=== PATIENT | male | born 1950 | race Caucasian/White ===

== ENCOUNTER 2016-07-19 20:27 | Inpatient (IN) | payer OTHER ==
[2016-07-19] MEDS ORDERED: CEFAZOLIN 1 GM in DEXTROSE 5%-WATER - 50 ML IVPB ONE (20:48)
[2016-07-19] MEDS ORDERED: IBUPROFEN 600 MG TABLET (FP) PO ONE ×2 (20:48→21:05)
--- NOTE | 2016-07-19 20:53 | PDOC ---
History of Present Illness - General History Source: Patient, EMS, Senior Care Records, Old Records Exam Limitations: Clinical Condition <Lobo Griffin - Last Filed: 07/19/16 21:55> - General History Source: Patient, EMS, Senior Care Records Exam Limitations: No Limitations - History of Present Illness Initial Comments: 07/19/16 20:56 The patient is a 66 year old male with significant past medical history of hyperlipidemia and bipolar disorder who presents to the ED BIBA from [facility] with s/p fall prior to arrival. Patient reports he woke up a few days ago with left leg and left knee pain. He states he normally has pain in the shoulders and knees, but this time his pain in his left knee has worsened. He reports he is unable to ambulate secondary to the pain. Patient reports he felt off balance and fell prior to arrival. He denies LOC or head trauma. According to the living facility, patient has a history of multiple falls recently and was sent to [facility] where he was treated and discharged back to [facility]. The patient denies fever, chills, cough, SOB, chest pain, and palpitations. The patient denies abdominal pain, nausea, vomiting, and diarrhea. Allergies: NKDA Social History: No alcohol, tobacco, or drug use reported. Past Surgical History: inguinal hernia repair (August 2015) PCP: Dr. Daiana Saleem <Shauna Bell - Last Filed: 07/19/16 23:08> - General Chief Complaint: Injury Stated Complaint: INJURY Time Seen by Provider: 07/19/16 20:41 Past History - Past Medical History Hypercholesterolemia: Yes - Surgical History Appendectomy: Yes - Immunization History Immunization Up to Date: Yes - Psycho/Social/Smoking Cessation Hx Suicidal Ideation: No Smoking Status: Yes Smoking History: Never smoked Number of Cigarettes Smoked Daily: 10 Information on smoking cessation initiated: No <Lobo Griffin - Last Filed: 07/19/16 21:55> <Shauna Bell - Last Filed: 07/19/16 23:08> - Past Medical History Allergies/Adverse Reactions: Allergies Allergy/AdvReac Type Severity Reaction Status Date / Time No Known Allergies Allergy Verified 07/20/11 16:06 Home Medications: Ambulatory Orders Aspirin [ASA -] 81 mg PO DAILY 07/19/16 Atorvastatin Ca [Lipitor] 40 mg PO HS 07/19/16 Cyclobenzaprine HCl 5 mg PO BID 07/19/16 Diphenhydramine [Benadryl -] 50 mg PO DAILY 07/19/16 Divalproex Sodium [Depakote] 750 mg PO HS 07/19/16 Fluphenazine HCl 1 mg PO BID 07/19/16 Fluphenazine HCl Injection [Prolixin Injection -] 25 mg IM ASDIR 07/19/16 Sertraline HCl [Zoloft -] 100 mg PO DAILY 07/19/16 Review of Systems - Review of Systems Able to Perform ROS?: Yes Comments:: 07/19/16 20:57 +left leg pain, left knee pain Absent: fever, chills, cough, SOB, chest pain, abdominal pain, nausea, vomiting , diarrhea, LOC, headache, dizziness <Shauna Bell - Last Filed: 07/19/16 23:08> *Physical Exam - Vital Signs Last Vital Signs Temp Pulse Resp BP Pulse Ox 98.7 F 97 H 20 128/62 96 07/19/16 20:34 07/19/16 20:34 07/19/16 20:34 07/19/16 20:34 07/19/16 20:34 - Physical Exam General Appearance: Yes: Nourished, Appropriately Dressed. No: Apparent Distress HEENT: positive: EOMI, Normal ENT Inspection Neck: positive: Supple. negative: Tender Respiratory/Chest: positive: Lungs Clear, Normal Breath Sounds. negative: Chest Tender, Respiratory Distress Cardiovascular: positive: Regular Rhythm, Regular Rate Gastrointestinal/Abdominal: positive: Normal Bowel Sounds, Soft. negative: Tender Musculoskeletal: positive: Normal Inspection Extremity: positive: Normal Capillary Refill, Normal Range of Motion, Tender ( LT KNEE AT PALPATION) Integumentary: positive: Normal Color, Warm (ON LT KNEE. ANT ERYTHEMA. NO EDEMA) Neurologic: positive: Alert, Normal Mood/Affect, Normal Response, Motor Strength 5/5 <Lobo Griffin - Last Filed: 07/19/16 21:55> - Vital Signs Last Vital Signs Temp Pulse Resp BP Pulse Ox 98.7 F 97 H 20 128/62 96 07/19/16 20:34 07/19/16 20:34 07/19/16 20:34 07/19/16 20:34 07/19/16 20:34 <Shauna Bell - Last Filed: 07/19/16 23:08> Heart Score/ECG Review - ECG Impressions Comment:: 07/19/16 23:08 NSR @74bpm Septal infarct, age undetermined Abnormal ECG <Shauna Bell - Last Filed: 07/19/16 23:08> ED Treatment Course - LABORATORY CBC & Chemistry Diagram: 07/19/16 21:00 07/19/16 21:00 - RADIOLOGY Radiology Studies Ordered: Category Date Time Status CHEST PA & LAT [RAD] Stat Radiology 07/19/16 20:48 Ordered KNEE 2 POS-LEFT [RAD] Stat Radiology 07/19/16 20:48 Ordered <Lobo Griffin - Last Filed: 07/19/16 21:55> - LABORATORY CBC & Chemistry Diagram: 07/19/16 21:00 07/19/16 21:00 <Shauna Bell - Last Filed: 07/19/16 23:08> Progress Note - Progress Note Progress Note: MULT VISITS TO ER'S FOR FALLS NOW W KNEE PAIN AND ERYTHEMA (GOUT?) WILL ADMIT WILL START ABX FOR CELLULITIS OF KNEE <Lobo Griffin - Last Filed: 07/19/16 21:55> *DC/Admit/Observation/Transfer - Discharge Dispostion Admit: Yes <Lobo Griffin - Last Filed: 07/19/16 21:55> - Attestations Scribe Attestion: 07/19/16 20:58 Documentation prepared by Shauna Bell, acting as associate medical director for Lobo Griffin MD <Shauna Bell - Last Filed: 07/19/16 23:08> Diagnosis at time of Disposition: Cellulitis Qualifiers: Site of cellulitis: extremity Site of cellulitis of extremity: lower extremity Laterality: left Qualified Code(s): L03.116 - Cellulitis of left lower limb - Discharge Dispostion Condition at time of disposition: Stable - Referrals
[2016-07-19] MEDS ORDERED: CEFAZOLIN (PRE-DOCKED) 50 ML IVPB ONE (21:05)
[2016-07-19 21:18] LABS: BASOPHIL 0.3 % (0-2.0); MCH 31.3 pg (25.7-33.7); MCHC 34.1 g/dl (32.0-35.9); MEAN CELL VOLUME 91.7 fl (80-96); MEAN PLT VOLUME 8.9 fl (7.5-11.1); NEUTROPHILS 61.6 % (42.8-82.8); PLATELET COUNT 130 K/MM3 (134-434); RDW 14.6 % (11.9-15.9)
[2016-07-19 21:41] LABS: ANION GAP 9 (8-16); CALCIUM 8.8 mg/dL (8.5-10.1); CO2 26 mmol/L (21-32); CREATININE 0.9 mg/dL (0.7-1.3); GLUCOSE,RANDOM 97 mg/dL (74-106)
--- NOTE | 2016-07-19 23:07 | HP ---
Admitting History and Physical - Primary Care Physician PCP: Anju Sheffield - Admission History of Present Illness: 66 year old male with significant past medical history of hyperlipidemia and bipolar disorder who presents to the ED BIBA from [facility] with s/p fall prior to arrival. Patient reports he woke up a few days ago with left leg and left knee pain. He states he normally has pain in the shoulders and knees, but this time his pain in his left knee has worsened. He reports he is unable to ambulate secondary to the pain. Patient reports he felt off balance and fell prior to arrival. He denies LOC or head trauma. According to the living facility , patient has a history of multiple falls recently and was sent to [facility] where he was treated and discharged back to [facility]. - Past Medical History Cardiovascular: Yes: Hyperlipdemia - Smoking History Smoking history: Never smoked Aproximately how many cigarettes per day: 10 Home Medications - Allergies Allergies/Adverse Reactions: Allergies Allergy/AdvReac Type Severity Reaction Status Date / Time No Known Allergies Allergy Verified 07/20/11 16:06 - Home Medications Home Medications: Ambulatory Orders Aspirin [ASA -] 81 mg PO DAILY 07/19/16 Atorvastatin Ca [Lipitor] 40 mg PO HS 07/19/16 Cyclobenzaprine HCl 5 mg PO BID 07/19/16 Diphenhydramine [Benadryl -] 50 mg PO DAILY 07/19/16 Divalproex Sodium [Depakote] 750 mg PO HS 07/19/16 Fluphenazine HCl 1 mg PO BID 07/19/16 Fluphenazine HCl Injection [Prolixin Injection -] 25 mg IM ASDIR 07/19/16 Sertraline HCl [Zoloft -] 100 mg PO DAILY 07/19/16 Physical Examination Vital Signs: Vital Signs Temperature 98.7 F 07/19/16 20:34 Pulse Rate 97 H 07/19/16 20:34 Respiratory Rate 20 07/19/16 20:34 Blood Pressure 128/62 07/19/16 20:34 O2 Sat by Pulse Oximetry (%) 96 07/19/16 20:34 Constitutional: Yes: No Distress HENT: Yes: Atraumatic Neck: Yes: Supple Cardiovascular: Yes: Regular Rate and Rhythm Respiratory: Yes: CTA Bilaterally Gastrointestinal: Yes: Normal Bowel Sounds Extremities: Yes: WNL Neurological: Yes: Alert, Oriented Problem List - Problems (1) Cellulitis Code(s): L03.90 - CELLULITIS, UNSPECIFIED Qualifiers: Site of cellulitis: extremity Site of cellulitis of extremity: lower extremity Laterality: left Qualified Code(s): L03.116 - Cellulitis of left lower limb (2) Frequent falls Code(s): R29.6 - REPEATED FALLS Assessment/Plan Laboratory Tests 07/19/16 07/19/16 21:00 21:00 WBC 7.0 RBC 3.66 L Hgb 11.5 L Hct 33.6 L MCV 91.7 MCHC 34.1 RDW 14.6 Plt Count 130 L MPV 8.9 Neutrophils % 61.6 Lymphocytes % 19.3 Monocytes % 15.8 H D Eosinophils % 3.0 Basophils % 0.3 Sodium 143 Potassium 4.0 Chloride 108 H Carbon Dioxide 26 Anion Gap 9 BUN 12 D Creatinine 0.9 Random Glucose 97 D Calcium 8.8 1.FREQUENT FALLS WILL GET PT EVAL NEURO EVAL 2.CHRONIC PAIN PRN PAIN MEDS PT ON FLEXERIL AND BENADRYL COULD BE THE REASON FOR FREQUENT FALLS....WILL HOLD 3.CELLULITIS LEFT KNEE ON IV ABX ID CONSULT
[2016-07-20 03:50] VITALS: BMI 25.3
[2016-07-20] MEDS ORDERED: CEFTRIAXONE 1 GM in DEXTROSE 5%-WATER - 100 ML IVPB SCH (10:00)
[2016-07-20] MEDS ORDERED: cefTRIAXone 1 GM/50 ML BAG (PRE-DOCKED) IVPB SCH (10:00)
[2016-07-20] MEDS: SERTRALINE HCL 50 MG TABLET (FP) PO SCH ×2 (10:04→10:14)
[2016-07-20] MEDS: ASPIRIN 81 MG CHEWABLE TABLETS PO SCH (10:04)
--- NOTE | 2016-07-20 11:03 | CONSULT ---
Consult Consult Specialty:: Neurology Reason for Consultation:: Falls - History of Present Illness History of Present Illness: 66 year old man with history of bipolar disorder, hyperlipidemia, presented to ED sent from [facility] due to comlpaints of falls. As per the patient, for the last few days has noted worsening left knee pain. He states that he has had difficultly walking due to the pain. When questioned regarding his recent falls, the patient states he believes the falls are secondary to pain and difficultly standing. Records states he has a history of falls in the past however patient does not give more information about this. He denies any back pain. CT head showed no acute findings. Exam significant for erythema/ swelling and limited range of motion of the left knee. - Past Medical History Cardio/Vascular: Yes: Hyperlipdemia - Alcohol/Substance Use Hx Alcohol Use: No - Smoking History Smoking history: Never smoked Aproximately how many cigarettes per day: 10 Home Medications - Allergies Allergies/Adverse Reactions: Allergies Allergy/AdvReac Type Severity Reaction Status Date / Time No Known Allergies Allergy Verified 07/20/11 16:06 - Home Medications Home Medications: Ambulatory Orders Aspirin [ASA -] 81 mg PO DAILY 07/19/16 Atorvastatin Ca [Lipitor] 40 mg PO HS 07/19/16 Cyclobenzaprine HCl 5 mg PO BID 07/19/16 Diphenhydramine [Benadryl -] 50 mg PO DAILY 07/19/16 Divalproex Sodium [Depakote] 750 mg PO HS 07/19/16 Fluphenazine HCl 1 mg PO BID 07/19/16 Fluphenazine HCl Injection [Prolixin Injection -] 25 mg IM ASDIR 07/19/16 Sertraline HCl [Zoloft -] 100 mg PO DAILY 07/19/16 Review of Systems - Review of Systems Musculoskeletal: reports: Decreased ROM, Joint Pain (left knee pain) Physical Exam Vital Signs: Vital Signs Temperature 97.6 F 07/20/16 10:00 Pulse Rate 68 07/20/16 10:00 Respiratory Rate 20 07/20/16 10:00 Blood Pressure 126/80 07/20/16 10:00 O2 Sat by Pulse Oximetry (%) 95 07/20/16 09:00 Constitutional: Yes: Calm Eyes: Yes: Conjunctiva Clear, EOM Intact HENT: Yes: Atraumatic, Normocephalic Cardiovascular: Yes: S1, S2 Extremities: Yes: Erythema, Other (left knee erythema and swelling, minimal range of motion left knee) Neurological: Yes: Alert, Oriented (knows name, year, thinks month is july), Cran Nerves II-XII Intact, Other (5/5 strength in bilateral upper ext, right lower ext no antigravity movement seen in left leg secondary to pain in left knee) Assessment/Plan 66 year old man with history of bipolar disorder, hyperlipidemia, presented to ED sent from [facility] due to comlpaints of falls. As per the patient, for the last few days has noted worsening left knee pain. He states that he has had difficultly walking due to the pain. When questioned regarding his recent falls, the patient states he believes the falls are secondary to pain and difficultly standing. Records states he has a history of falls in the past however patient does not give more information about this. He denies any back pain. Fall- likely secondary to left knee cellulitis, polypharmacy could contribute. Unclear cause of prior falls as patient not providing history on this CT head showed no acute findings Exam significant for erythema/swelling and minimal range of motion of the left knee Will defer on imaging of L/S spine as patient denying back pain Recommend physical therapy Supportive care Thank you for the consult
[2016-07-20 12:19] LABS: TROPONIN I < 0.02 ng/ml (0.00-0.05)
--- NOTE | 2016-07-20 13:07 | CONSULT ---
Consult Consult Specialty:: infectious diseases Referred by:: Reason for Consultation:: cellulitis of the left knee joint - History of Present Illness Chief Complaint: pain and swelling of the left knee History of Present Illness: 66 year old male with significant past medical history of hyperlipidemia and bipolar disorder who presents to the ED BIBA from [facility] with s/p fall prior to arrival. Patient reports he woke up a few days ago with left leg and left knee pain. He states he normally has pain in the shoulders and knees, but this time his pain in his left knee has worsened. He reports he is unable to ambulate secondary to the pain. Patient reports he felt off balance and fell prior to arrival. He denies LOC or head trauma. According to the living facility , patient has a history of multiple falls recently and was sent to [facility] where he was treated and discharged back to [facility]. The above history taken from the charts as patient is not able to give proper history he mentions that he had fevers and chills but he is not very sure of that.now he says he has pain the left knee joint at the mid knee joint He is very hungry and wants to eat and does not want to talk much at this time - History Source History Provided By: Patient, Medical Record Limitations to Obtaining History: Poor Historian - Past Medical History Cardio/Vascular: Yes: Hyperlipdemia - Alcohol/Substance Use Hx Alcohol Use: No - Smoking History Smoking history: Never smoked Aproximately how many cigarettes per day: 10 Home Medications - Allergies Allergies/Adverse Reactions: Allergies Allergy/AdvReac Type Severity Reaction Status Date / Time No Known Allergies Allergy Verified 07/20/11 16:06 - Home Medications Home Medications: Ambulatory Orders Aspirin [ASA -] 81 mg PO DAILY 07/19/16 Atorvastatin Ca [Lipitor] 40 mg PO HS 07/19/16 Cyclobenzaprine HCl 5 mg PO BID 07/19/16 Diphenhydramine [Benadryl -] 50 mg PO DAILY 07/19/16 Divalproex Sodium [Depakote] 750 mg PO HS 07/19/16 Fluphenazine HCl 1 mg PO BID 07/19/16 Fluphenazine HCl Injection [Prolixin Injection -] 25 mg IM ASDIR 07/19/16 Sertraline HCl [Zoloft -] 100 mg PO DAILY 07/19/16 Review of Systems - Review of Systems Constitutional: reports: Fever, Other Eyes: reports: No Symptoms HENT: reports: No Symptoms Neck: reports: No Symptoms Cardiovascular: reports: No Symptoms Respiratory: reports: No Symptoms Gastrointestinal: reports: No Symptoms Genitourinary: reports: No Symptoms Breasts: reports: No Symptoms Reported Musculoskeletal: reports: Joint Pain (left knee joint), Joint Swelling Neurological: reports: Confusion Endocrine: reports: No Symptoms Hematology/Lymphatic: reports: No Symptoms Psychiatric: reports: No Symptoms Physical Exam Vital Signs: Vital Signs Temperature 97.6 F 07/20/16 10:00 Pulse Rate 68 07/20/16 10:00 Respiratory Rate 20 07/20/16 10:00 Blood Pressure 126/80 07/20/16 10:00 O2 Sat by Pulse Oximetry (%) 95 07/20/16 09:00 Constitutional: Yes: Well Nourished, Mild Distress Eyes: Yes: Conjunctiva Clear HENT: Yes: Atraumatic Neck: Yes: Supple, Trachea Midline Cardiovascular: Yes: Regular Rate and Rhythm Respiratory: Yes: Regular, CTA Bilaterally Gastrointestinal: Yes: Normal Bowel Sounds, Soft Musculoskeletal: Yes: Joint Swelling, Other Extremities: Yes: Erythema, Other (swelling left knee joint) Neurological: Yes: Alert, Oriented Psychiatric: Yes: Alert Imaging - Results Chest X-ray: Report Reviewed, Image Reviewed X-ray: Report Reviewed, Image Reviewed Assessment/Plan Assessment/Plan 66 year old man with history of bipolar disorder, hyperlipidemia, presented to ED sent from [facility] due to comlpaints of falls. As per the patient, for the last few days has noted worsening left knee pain. He states that he has had difficultly walking due to the pain. movement of the knee joint painful cellulitis of the left knee joint hld bipolar disorder fall plan will start zosyn also oral clinda rest of the joint monitor swelling rest as per the team
[2016-07-20] MEDS: PIPERACILLIN/TAZOB 3.375 GM 50 ML IVPB SCH ×2 (13:55→18:02)
[2016-07-20] MEDS: CLINDAMYCIN HCL 150 MG CAPSULE (FP) PO SCH (18:01)
--- NOTE | 2016-07-20 19:24 | PN ---
Progress Note, Physician - Current Medication List Current Medications: Active Medications Aspirin (Asa -) 81 mg PO DAILY [facility] Last Admin: 07/20/16 10:04 Dose: 81 mg Atorvastatin Calcium (Lipitor -) 40 mg PO HS [facility] Clindamycin HCl (Cleocin -) 300 mg PO Q6HPO [facility] Last Admin: 07/20/16 18:01 Dose: 300 mg Divalproex Sodium (Depakote -) 750 mg PO HS [facility] Piperacillin Sod/Tazobactam Sod (Zosyn 3.375gm Ivpb (Pre-Docked)) 50 mls @ 100 mls/hr IVPB Q8H-IV [facility] PRN Reason: Protocol Last Admin: 07/20/16 18:02 Dose: 100 mls/hr Sertraline HCl (Zoloft -) 100 mg PO DAILY [facility] Last Admin: 07/20/16 10:14 Dose: 100 mg - Objective Vital Signs: Vital Signs Temperature 97.7 F 07/20/16 18:08 Pulse Rate 85 07/20/16 18:08 Respiratory Rate 20 07/20/16 18:08 Blood Pressure 128/81 07/20/16 18:08 O2 Sat by Pulse Oximetry (%) 95 07/20/16 09:00 Constitutional: Yes: No Distress HENT: Yes: Atraumatic Neck: Yes: Supple Cardiovascular: Yes: Regular Rate and Rhythm Respiratory: Yes: CTA Bilaterally Gastrointestinal: Yes: Normal Bowel Sounds Extremities: Yes: Other (LEFT KNEE CELLULITIS) Neurological: Yes: Alert, Oriented Problem List - Problems (1) Cellulitis Code(s): L03.90 - CELLULITIS, UNSPECIFIED Qualifiers: Site of cellulitis: extremity Site of cellulitis of extremity: lower extremity Laterality: left Qualified Code(s): L03.116 - Cellulitis of left lower limb (2) Frequent falls Code(s): R29.6 - REPEATED FALLS Assessment/Plan Laboratory Tests 1.FREQUENT FALLS WILL GET PT EVAL NEURO EVAL 2.CHRONIC PAIN PRN PAIN MEDS PT ON FLEXERIL AND BENADRYL COULD BE THE REASON FOR FREQUENT FALLS....WILL HOLD 3.CELLULITIS LEFT KNEE ON IV ABX PT EVAL
--- NOTE | 2016-07-20 21:30 | EKG ---
Test Reason : Blood Pressure : / mmHG Vent. Rate : 074 BPM Atrial Rate : 074 BPM P-R Int : 162 ms QRS Dur : 086 ms QT Int : 366 ms P-R-T Axes : 030 013 022 degrees QTc Int : 406 ms NORMAL SINUS RHYTHM CANNOT RULE OUT SEPTAL INFARCT (CITED ON OR BEFORE 20-JUL-2011) ABNORMAL ECG WHEN COMPARED WITH ECG OF 20-JUL-2011 16:26, VENT. RATE HAS DECREASED Confirmed by RAMILA ROBISON, CHRISTINE ([id number]) on 07/20/2016 9:29:53 PM Referred By: Confirmed By:CHRISTINE MCGRATH MD
[2016-07-20] MEDS: ATORVASTATIN CA 40 MG TABLET (FP) PO SCH (22:43)
[2016-07-20] MEDS: DIVALPROEX SODIUM 250 MG TABLET E.C. (FP) PO SCH (23:24)
[2016-07-21] MEDS: CLINDAMYCIN HCL 150 MG CAPSULE (FP) PO SCH ×5 (00:45→23:34)
[2016-07-21] MEDS: PIPERACILLIN/TAZOB 3.375 GM 50 ML IVPB SCH ×3 (01:29→18:00)
[2016-07-21] MEDS: SERTRALINE HCL 50 MG TABLET (FP) PO SCH (11:36)
[2016-07-21] MEDS: ASPIRIN 81 MG CHEWABLE TABLETS PO SCH (11:36)
--- NOTE | 2016-07-21 14:43 | PN ---
Progress Note, Physician History of Present Illness: patient looks better knee less red and swollen minimal pain movement of knee slightly better - Current Medication List Current Medications: Active Medications Aspirin (Asa -) 81 mg PO DAILY [facility] Last Admin: 07/21/16 11:36 Dose: 81 mg Atorvastatin Calcium (Lipitor -) 40 mg PO HS [facility] Last Admin: 07/20/16 22:43 Dose: 40 mg Clindamycin HCl (Cleocin -) 300 mg PO Q6HPO [facility] Last Admin: 07/21/16 11:36 Dose: 300 mg Divalproex Sodium (Depakote -) 750 mg PO HS [facility] Last Admin: 07/20/16 23:24 Dose: 750 mg Piperacillin Sod/Tazobactam Sod (Zosyn 3.375gm Ivpb (Pre-Docked)) 50 mls @ 100 mls/hr IVPB Q8H-IV [facility] PRN Reason: Protocol Last Admin: 07/21/16 11:36 Dose: 100 mls/hr Sertraline HCl (Zoloft -) 100 mg PO DAILY [facility] Last Admin: 07/21/16 11:36 Dose: 100 mg - Objective Vital Signs: Vital Signs Temperature 97.5 F L 07/21/16 14:14 Pulse Rate 92 H 07/21/16 14:14 Respiratory Rate 20 07/21/16 14:14 Blood Pressure 138/88 07/21/16 14:14 O2 Sat by Pulse Oximetry (%) 96 07/20/16 21:00 Constitutional: Yes: No Distress, Calm Cardiovascular: Yes: Regular Rate and Rhythm Respiratory: Yes: Regular, CTA Bilaterally Gastrointestinal: Yes: Normal Bowel Sounds, Soft Musculoskeletal: Yes: Other Extremities: Yes: Erythema (less), Other Integumentary: Yes: Erythema (improving) Neurological: Yes: Alert Psychiatric: Yes: Alert Assessment/Plan Assessment/Plan cellulitis of the left knee joint hld bipolar disorder fall plan continue current abx knee improving
--- NOTE | 2016-07-21 19:49 | PN ---
Progress Note, Physician - Current Medication List Current Medications: Active Medications Aspirin (Asa -) 81 mg PO DAILY [facility] Last Admin: 07/21/16 11:36 Dose: 81 mg Atorvastatin Calcium (Lipitor -) 40 mg PO HS [facility] Last Admin: 07/20/16 22:43 Dose: 40 mg Clindamycin HCl (Cleocin -) 300 mg PO Q6HPO [facility] Last Admin: 07/21/16 18:00 Dose: 300 mg Divalproex Sodium (Depakote -) 750 mg PO HS [facility] Last Admin: 07/20/16 23:24 Dose: 750 mg Piperacillin Sod/Tazobactam Sod (Zosyn 3.375gm Ivpb (Pre-Docked)) 50 mls @ 100 mls/hr IVPB Q8H-IV [facility] PRN Reason: Protocol Last Admin: 07/21/16 18:00 Dose: 100 mls/hr Sertraline HCl (Zoloft -) 100 mg PO DAILY [facility] Last Admin: 07/21/16 11:36 Dose: 100 mg - Objective Vital Signs: Vital Signs Temperature 98.5 F 07/21/16 18:00 Pulse Rate 89 07/21/16 18:00 Respiratory Rate 20 07/21/16 18:00 Blood Pressure 107/74 07/21/16 18:00 O2 Sat by Pulse Oximetry (%) 96 07/21/16 10:00 Constitutional: Yes: No Distress HENT: Yes: Atraumatic Neck: Yes: Supple Cardiovascular: Yes: Regular Rate and Rhythm Respiratory: Yes: CTA Bilaterally Gastrointestinal: Yes: Normal Bowel Sounds Extremities: Yes: Other (LEFT KNEE CELLULITIS MUCH IMPROVED) Neurological: Yes: Alert, Oriented Problem List - Problems (1) Cellulitis Code(s): L03.90 - CELLULITIS, UNSPECIFIED Qualifiers: Site of cellulitis: extremity Site of cellulitis of extremity: lower extremity Laterality: left Qualified Code(s): L03.116 - Cellulitis of left lower limb (2) Frequent falls Code(s): R29.6 - REPEATED FALLS Assessment/Plan Laboratory Tests 1.FREQUENT FALLS 2.CHRONIC PAIN PRN PAIN MEDS 3.CELLULITIS LEFT KNEE ON IV ABX CAN WE SWITCH TO PO AND DC PT EVAL
[2016-07-21] MEDS ORDERED: PT OWN MED DRAWER 7, Y5N ONE (21:49)
[2016-07-21] MEDS: DIVALPROEX SODIUM 250 MG TABLET E.C. (FP) PO SCH (21:58)
[2016-07-21] MEDS: ATORVASTATIN CA 40 MG TABLET (FP) PO SCH (21:58)
[2016-07-22] MEDS: PIPERACILLIN/TAZOB 3.375 GM 50 ML IVPB SCH ×3 (01:38→18:23)
[2016-07-22] MEDS: ACETAMINOPHEN 325 MG TABLET (FP) PO PRN ×4 (01:38→22:40)
[2016-07-22] MEDS: CLINDAMYCIN HCL 150 MG CAPSULE (FP) PO SCH ×3 (07:02→18:23)
[2016-07-22] MEDS: ASPIRIN 81 MG CHEWABLE TABLETS PO SCH (10:18)
[2016-07-22] MEDS: SERTRALINE HCL 50 MG TABLET (FP) PO SCH (10:18)
--- NOTE | 2016-07-22 13:38 | PN ---
Progress Note, Physician History of Present Illness: patient doing well no issues knee joint looks much better - Current Medication List Current Medications: Active Medications Acetaminophen (Tylenol -) 650 mg PO Q6H PRN PRN Reason: FEVER OR PAIN Last Admin: 07/22/16 08:58 Dose: 650 mg Aspirin (Asa -) 81 mg PO DAILY [facility] Last Admin: 07/22/16 10:18 Dose: 81 mg Atorvastatin Calcium (Lipitor -) 40 mg PO HS [facility] Last Admin: 07/21/16 21:58 Dose: 40 mg Clindamycin HCl (Cleocin -) 300 mg PO Q6HPO [facility] Last Admin: 07/22/16 12:00 Dose: 300 mg Divalproex Sodium (Depakote -) 750 mg PO [facility] Last Admin: 07/21/16 21:58 Dose: 750 mg Piperacillin Sod/Tazobactam Sod (Zosyn 3.375gm Ivpb (Pre-Docked)) 50 mls @ 100 mls/hr IVPB Q8H-IV [facility] PRN Reason: Protocol Last Admin: 07/22/16 10:18 Dose: 100 mls/hr Sertraline HCl (Zoloft -) 100 mg PO DAILY [facility] Last Admin: 07/22/16 10:18 Dose: 100 mg - Objective Vital Signs: Vital Signs Temperature 98.5 F 07/22/16 08:43 Pulse Rate 81 07/22/16 08:43 Respiratory Rate 18 07/22/16 08:43 Blood Pressure 142/93 07/22/16 08:43 O2 Sat by Pulse Oximetry (%) 96 07/21/16 22:00 Constitutional: Yes: No Distress, Calm Neck: Yes: Supple Cardiovascular: Yes: Regular Rate and Rhythm Respiratory: Yes: Regular, CTA Bilaterally Gastrointestinal: Yes: Normal Bowel Sounds, Soft Musculoskeletal: Yes: Joint Swelling (minimal), Other Extremities: Yes: Erythema (knee joint looks much better improving) Integumentary: Yes: Erythema Neurological: Yes: Alert Psychiatric: Yes: Alert Assessment/Plan Assessment/Plan cellulitis of the left knee joint hld bipolar disorder fall plan continue current abx knee improving continue elevation physio
--- NOTE | 2016-07-22 16:58 | DS ---
Physical Examination Vital Signs: Vital Signs Temperature 98.1 F 07/22/16 14:59 Pulse Rate 82 07/22/16 14:59 Respiratory Rate 20 07/22/16 14:59 Blood Pressure 116/74 07/22/16 14:59 O2 Sat by Pulse Oximetry (%) 96 07/22/16 09:00 Constitutional: Yes: No Distress HENT: Yes: Atraumatic Neck: Yes: Supple Cardiovascular: Yes: Regular Rate and Rhythm Respiratory: Yes: CTA Bilaterally Gastrointestinal: Yes: Normal Bowel Sounds Extremities: Yes: Other (left knee swelling and cellulitis almost resolved) Neurological: Yes: Alert Discharge Summary Reason For Visit: CELLULITIS Current Active Problems Cellulitis (Acute) Frequent falls (Acute) Condition: Stable - Instructions Referrals: Daiana Saleem MD [Primary Care Provider] - Disposition: ASSISTED LIVING FACILITY - Home Medications Comprehensive Discharge Medication List: Ambulatory Orders Aspirin [ASA -] 81 mg PO DAILY 07/19/16 Atorvastatin Ca [Lipitor] 40 mg PO HS 07/19/16 Divalproex Sodium [Depakote] 750 mg PO HS 07/19/16 Fluphenazine HCl 1 mg PO BID 07/19/16 Sertraline HCl [Zoloft -] 100 mg PO DAILY 07/19/16 Amoxicillin/Potassium Clav [Augmentin 875-125 Tablet] 1 each PO BID #14 tablet 07/22/16 Clindamycin [Cleocin -] 300 mg PO Q6HPO #42 capsule 07/22/16 dc to snf on po abx d/w id pt was not able to leave to snf, consider this as follow up progress note
[2016-07-22] MEDS ORDERED: PT OWN MED DRAWER 7, Y5N ONE ×2 (21:37→22:32)
[2016-07-22] MEDS: DIVALPROEX SODIUM 250 MG TABLET E.C. (FP) PO SCH (22:39)
[2016-07-22] MEDS: ATORVASTATIN CA 40 MG TABLET (FP) PO SCH (22:39)
[2016-07-23] MEDS: CLINDAMYCIN HCL 150 MG CAPSULE (FP) PO SCH ×3 (00:42→11:37)
[2016-07-23] MEDS: PIPERACILLIN/TAZOB 3.375 GM 50 ML IVPB SCH ×2 (01:43→10:09)
[2016-07-23] MEDS: ACETAMINOPHEN 325 MG TABLET (FP) PO PRN ×2 (05:47→11:37)
[2016-07-23 05:57] VITALS: TEMP 98.7
[2016-07-23] MEDS: ASPIRIN 81 MG CHEWABLE TABLETS PO SCH (10:09)
[2016-07-23] MEDS: SERTRALINE HCL 50 MG TABLET (FP) PO SCH (10:09)
[2016-07-23 10:16] VITALS: BP 137/91; PULSE 81
--- NOTE | 2016-07-23 11:50 | DS ---
Physical Examination Vital Signs: Vital Signs Temperature 98.7 F 07/23/16 10:00 Pulse Rate 81 07/23/16 10:00 Respiratory Rate 20 07/23/16 10:00 Blood Pressure 137/91 07/23/16 10:00 O2 Sat by Pulse Oximetry (%) 97 07/23/16 09:00 Constitutional: Yes: No Distress HENT: Yes: Atraumatic Neck: Yes: Supple Cardiovascular: Yes: Regular Rate and Rhythm Respiratory: Yes: CTA Bilaterally Gastrointestinal: Yes: Normal Bowel Sounds Extremities: Yes: WNL Neurological: Yes: Alert, Oriented Discharge Summary Reason For Visit: CELLULITIS Current Active Problems Cellulitis (Acute) Frequent falls (Acute) Condition: Stable - Instructions Referrals: Daiana Saleem MD [Primary Care Provider] - Disposition: ASSISTED LIVING FACILITY - Home Medications Comprehensive Discharge Medication List: Ambulatory Orders Aspirin [ASA -] 81 mg PO DAILY 07/19/16 Atorvastatin Ca [Lipitor] 40 mg PO HS 07/19/16 Divalproex Sodium [Depakote] 750 mg PO HS 07/19/16 Fluphenazine HCl 1 mg PO BID 07/19/16 Sertraline HCl [Zoloft -] 100 mg PO DAILY 07/19/16 Amoxicillin/Potassium Clav [Augmentin 875-125 Tablet] 1 each PO BID #14 tablet 07/22/16 Clindamycin [Cleocin -] 300 mg PO Q6HPO #42 capsule 07/22/16 dc to snf spoke with pharmacy, they say as per their records pt is allergic to pcn, told them in hosp records pt has no known allergies and was on zosyn and did well
== END 2016-07-23 11:57 | disposition home or self-care (01) | DRG 603 ==
LOC: JER 20:27 → JERBED 21:56 → J7W 07-20 01:59
PROVIDERS: ADMIT Internal Medicine; ATTEND Internal Medicine
DX: L03.116 Cellulitis of left lower limb (principal); R29.6 Repeated falls; E78.5 Hyperlipidemia, unspecified; F31.9 Bipolar disorder, unspecified; R26.2 Difficulty in walking, not elsewhere classified
CPT/HCPCS: 36415; 70450-TC; 71020-TC; 73560-TC-LT; 80048; 82550; 84484; 85025; 93005; 93010; 97116-GP; 97161-GP; 99283-25

== ENCOUNTER 2016-07-24 14:30 | Observation (INO) | payer OTHER ==
--- NOTE | 2016-07-24 15:31 | PDOC ---
History of Present Illness - General Chief Complaint: Weakness Stated Complaint: WEAKNESS Time Seen by Provider: 07/24/16 14:51 History Source: Patient - History of Present Illness Associated Symptoms: denies: fever/chills, malaise, nausea/vomiting, weakness Past History - Past Medical History Allergies/Adverse Reactions: Allergies Allergy/AdvReac Type Severity Reaction Status Date / Time No Known Allergies Allergy Verified 07/24/16 14:40 Home Medications: Ambulatory Orders Aspirin [ASA -] 81 mg PO DAILY 07/19/16 Atorvastatin Ca [Lipitor] 40 mg PO HS 07/19/16 Divalproex Sodium [Depakote] 750 mg PO HS 07/19/16 Fluphenazine HCl 1 mg PO BID 07/19/16 Sertraline HCl [Zoloft -] 100 mg PO DAILY 07/19/16 Cyclobenzaprine HCl 5 mg PO BID 07/24/16 Divalproex [Depakote -] 500 mg PO DAILY 07/24/16 Fluphenazine Decanoate 25 mg IM ASDIR 07/24/16 Anemia: No Asthma: No Cancer: No Cardiac Disorders: No CVA: No COPD: No CHF: No Dementia: No Diabetes: No GI Disorders: No Disorders: No HTN: No Hypercholesterolemia: Yes Liver Disease: No Psychiatric Problems: Yes (bipolar) Seizures: No Thyroid Disease: No - Surgical History Abdominal Surgery: No Appendectomy: Yes Cardiac Surgery: No Cholecystectomy: No Lung Surgery: No Neurologic Surgery: No Orthopedic Surgery: No - Immunization History Immunization Up to Date: Yes - Psycho/Social/Smoking Cessation Hx Anxiety: No Suicidal Ideation: No Smoking Status: Yes Smoking History: Former smoker Have you smoked in the past 12 months: No Number of Cigarettes Smoked Daily: 10 Information on smoking cessation initiated: No Hx Alcohol Use: No Drug/Substance Use Hx: No Substance Use Type: None Hx Substance Use Treatment: No Review of Systems - Review of Systems Constitutional: No: Chills, Fever ABD/GI: Yes: Diarrhea. No: Blood Streaked Bowels, Nausea, Vomiting, Abdominal cramping Musculoskeletal: Yes: Joint Pain, Joint Swelling *Physical Exam - Vital Signs Last Vital Signs Temp Pulse Resp BP Pulse Ox 98.9 F 111 H 20 111/86 95 07/24/16 14:40 07/24/16 14:40 07/24/16 14:40 07/24/16 14:40 07/24/16 14:40 - Physical Exam General Appearance: Yes: Appropriately Dressed. No: Apparent Distress HEENT: positive: Normal Voice Neck: positive: Supple Respiratory/Chest: negative: Respiratory Distress Gastrointestinal/Abdominal: positive: Soft. negative: Tender Extremity: positive: Other (minimal erythema/swelling to L knee diffusely, FROMI , no e/o effusion) Integumentary: positive: Warm Neurologic: positive: Fully Oriented, Alert, Normal Mood/Affect ED Treatment Course - LABORATORY CBC & Chemistry Diagram: 07/24/16 17:30 07/24/16 17:30 Medical Decision Making - Medical Decision Making 66-year-old male, history of hyperlipidemia, bipolar, status post discharge from [facility] yesterday after being admitted for cellulitis of his left knee, currently on clindamycin and Augmentin with some improvement in symptoms but now complaining of 2 episodes of loose stools since last night. No bright red blood per rectum, abdominal pain, nausea, vomiting. Patient also states he is unable to bear weight on the left and states he was sent to the ED by staff at assisted living facility. Patient in no apparent distress, with minimal erythema and swelling to anterior aspect of left knee w/ full range of motion intact. No evidence of effusion at this time. I contacted staff at [facility] ([place] at [phone]), who informed me that they are unable to care for patient at this time given inability to bear weight and unable to perform ADLs at facility. States they are not equipped to offer level of care that pt needs. As per staff, unable to accept the patient back to facility in current state. Will contact casework manager at this point 07/24/16 17:33 07/24/16 17:35 manager domestic never got back to ED staff but case d/w nursing emergency crew supervisor and Dr Howell and pt admitted to observation *DC/Admit/Observation/Transfer Diagnosis at time of Disposition: Cellulitis of knee, left, Unable to ambulate - Discharge Dispostion Condition at time of disposition: Fair Admit: Yes - Referrals Referrals: Daiana Saleem MD [Primary Care Provider] -
[2016-07-24 17:38] LABS: BASOPHIL 0.4 % (0-2.0); EOSINOPHIL 0.4 % (0-4.5); MCH 31.1 pg (25.7-33.7); MCHC 33.8 g/dl (32.0-35.9); MEAN CELL VOLUME 92.1 fl (80-96); MEAN PLT VOLUME 8.3 fl (7.5-11.1); NEUTROPHILS 76.5 % (42.8-82.8); PLATELET COUNT 215 K/MM3 (134-434); RDW 14.3 % (11.9-15.9); WHITE BLOOD COUNT 12.1 K/mm3 (4.0-10.0)
--- NOTE | 2016-07-24 17:41 | PDOC ---
*Physical Exam - Vital Signs Last Vital Signs Temp Pulse Resp BP Pulse Ox 98.9 F 111 H 20 111/86 95 07/24/16 14:40 07/24/16 14:40 07/24/16 14:40 07/24/16 14:40 07/24/16 14:40 ED Treatment Course - LABORATORY CBC & Chemistry Diagram: 07/24/16 17:30 07/24/16 17:30 - ADDITIONAL ORDERS Additional order review: 07/24/16 17:30 RBC 4.00 MCV 92.1 MCHC 33.8 RDW 14.3 MPV 8.3 Neutrophils % 76.5 D Lymphocytes % 14.7 D Monocytes % 8.0 Eosinophils % 0.4 D Basophils % 0.4 - RADIOLOGY Radiology Studies Ordered: Category Date Time Status CHEST X-RAY PORTABLE* [RAD] Stat Radiology 07/24/16 17:09 Ordered *DC/Admit/Observation/Transfer Diagnosis at time of Disposition: Cellulitis of knee, left, Unable to ambulate - Discharge Dispostion Condition at time of disposition: Fair Admit: Yes Decision to Admit order Date/Time: Decision to Admit Order Category Date Time Status Decision to Admit to Hospital Routine Admission 07/24/16 17:32 Active - Referrals Referrals: Daiana Saleem MD [Primary Care Provider] - - Patient Instructions - Post Discharge Activity
--- NOTE | 2016-07-24 17:54 | HP ---
PCP: Daiana Saleem CHIEF COMPLAINT: Left leg pain HISTORY OF PRESENT ILLNESS: This is a 66-year-old man who resides at [facility] and who had been admitted here for cellulitis of his left knee. He presented then with left knee pain after a fall. He could not ambulate because of pain. He had fallen multiple times and had recently been seen at [facility]. During the last admission, he was treated with Zosyn and Clindamycin. Physical therapy was started. He walked 75 feet with an antalgic gait and minimal assistance. He was discharged on Augmentin and Clindamycin. Since returning, he has had continued pain in his left knee and has been unable to bear weight on his left leg. For this reason, he cannot be managed at the [facility] facility. He also reports having diarrhea this morning. He denies abdominal pain. PAST MEDICAL HISTORY Hyperlipidemia Bipolar disorder PAST SURGICAL HISTORY Appendectomy Social History: Smoking: Former smoker Alcohol: None Drugs: None Recent Travel: No Family History: Non-contributory Allergies No Known Allergies Allergy (Verified 07/24/16 14:40) HOME MEDICATIONS 3 Medication Instructions Recorded Aspirin [ASA -] 81 mg PO DAILY 07/19/16 Atorvastatin Ca [Lipitor] 40 mg PO HS 07/19/16 Divalproex Sodium [Depakote] 750 mg PO HS 07/19/16 Fluphenazine HCl 1 mg PO BID 07/19/16 Sertraline HCl [Zoloft -] 100 mg PO DAILY 07/19/16 Cyclobenzaprine HCl 5 mg PO BID 07/24/16 Divalproex [Depakote -] 500 mg PO DAILY 07/24/16 Fluphenazine Decanoate 25 mg IM ASDIR 07/24/16 REVIEW OF SYSTEMS CONSTITUTIONAL: Absent: fever, chills, diaphoresis, generalized weakness, malaise, loss of appetite, weight change HEENT: Absent: rhinorrhea, nasal congestion, throat pain, throat swelling, difficulty swallowing, mouth swelling, ear pain, eye pain, visual changes CARDIOVASCULAR: Absent: chest pain, syncope, palpitations, lightheadedness, peripheral edema RESPIRATORY: Absent: cough, shortness of breath, dyspnea with exertion, orthopnea, wheezing, stridor, hemoptysis GASTROINTESTINAL: Present: diarrhea. Absent: abdominal pain, abdominal distension, nausea, vomiting, constipation, melena, hematochezia GENITOURINARY: Absent: dysuria, frequency, urgency, hesitancy, hematuria, flank pain MUSCULOSKELETAL: Present: Left knee pain. Absent: myalgia, joint swelling, back pain, neck pain SKIN: Absent: rash, itching, pallor HEMATOLOGIC/IMMUNOLOGIC: Absent: easy bleeding, easy bruising, lymphadenopathy, frequent infections ENDOCRINE: Absent: unexplained weight gain, unexplained weight loss, heat intolerance, cold intolerance NEUROLOGIC: Present: unsteady gait. Absent: headache, focal weakness, paresthesias, dizziness, seizure, mental status changes, bladder or bowel incontinence PSYCHIATRIC: Absent: anxiety, depression, suicidal or homicidal ideation, hallucinations. PHYSICAL EXAMINATION Vital Signs - 24 hr 07/24/16 14:40 Temperature 98.9 F Pulse Rate 111 H Respiratory 20 Rate Blood Pressure 111/86 O2 Sat by Pulse 95 Oximetry (%) GENERAL: Awake, alert, and fully oriented, in no acute distress. HEAD: Normal with no signs of trauma. EYES: Pupils equal, round and reactive to light, extraocular movements intact, sclerae anicteric, conjunctivae clear. EARS, NOSE, THROAT: Ears normal, nares patent, oropharynx clear without exudates. Moist mucous membranes. NECK: Normal range of motion, supple without lymphadenopathy, JVD, or masses. LUNGS: Breath sounds equal, clear to auscultation bilaterally. No wheezes, and no crackles. No accessory muscle use. HEART: Tachycardic, normal S1 and S2 without murmur, rub or gallop. ABDOMEN: Soft, nontender, not distended, normoactive bowel sounds, no guarding, no rebound, no masses. No hepatomegaly or splenomegaly. MUSCULOSKELETAL: Normal range of motion at all joints. No bony deformities or tenderness. No CVA tenderness. UPPER EXTREMITIES: 2+ pulses, warm, well-perfused. No cyanosis. No clubbing. Cap refill <2 seconds. No peripheral edema. LOWER EXTREMITIES: 2+ pulses, warm, well-perfused. No calf tenderness. No peripheral edema. Mild erythema of left knee with warmth and tenderness. No swelling of left knee. NEUROLOGICAL: Cranial nerves II-XII intact. Normal speech. Gait not observed. PSYCHIATRIC: Cooperative. Good eye contact. Appropriate mood and affect. SKIN: Warm, dry, normal turgor, no rashes or lesions noted. Laboratory Results - last 24 hr 07/24/16 17:30 WBC 12.1 H D RBC 4.00 Hgb 12.4 Hct 36.9 MCV 92.1 MCHC 33.8 RDW 14.3 Plt Count 215 D MPV 8.3 Neutrophils % 76.5 D Lymphocytes % 14.7 D Monocytes % 8.0 Eosinophils % 0.4 D Basophils % 0.4 Chest x-ray: No acute process. EKG: Sinus rhythm, rate 96. PACs. ASSESSMENT/PLAN: This is a 66-year-old man with a history of hyperlipidemia and bipolar disorder , resident of [facility], who was recently admitted for left knee cellulitis and who returns now for left knee pain, inability to walk, and diarrhea. He is afebrile but tachycardic with WBC 12.1. He is being placed in observation now for further evaluation and treatment of an emergent condition. 1. Left knee cellulitis - Continue Augmentin, Clindamycin 2. Inability to ambulate secondary to left knee pain - Physical therapy - Ibuprofen as needed 3. Diarrhea - Likely antibiotic-associated, but since WBC is 12.1, will check for C. difficile - IV fluid 4. Hyperlipidemia - Continue Lipitor 5. Bipolar disorder - Continue Depakote, Prolixin, Zoloft Problem List - Problem (1) Cellulitis of knee, left Code(s): L03.116 - CELLULITIS OF LEFT LOWER LIMB (2) Diarrhea Code(s): R19.7 - DIARRHEA, UNSPECIFIED (3) Unable to ambulate Code(s): R26.2 - DIFFICULTY IN WALKING, NOT ELSEWHERE CLASSIFIED (4) Bipolar 1 disorder Code(s): F31.9 - BIPOLAR DISORDER, UNSPECIFIED (5) Frequent falls Code(s): R29.6 - REPEATED FALLS (6) Hyperlipidemia Code(s): E78.5 - HYPERLIPIDEMIA, UNSPECIFIED Visit type - Emergency Visit Emergency Visit: Yes ED Registration Date: 07/24/16 Care time: The patient presented to the Emergency Department on the above date and was hospitalized for further evaluation of their emergent condition. - New Patient This patient is new to me today: Yes Date on this admission: 07/24/16 - Critical Care Critical Care patient: No
[2016-07-24] MEDS ORDERED: CLINDAMYCIN HCL 150 MG CAPSULE (FP) ONE (18:04)
[2016-07-24] MEDS: CLINDAMYCIN HCL 150 MG CAPSULE (FP) PO SCH ×2 (18:07→23:06)
[2016-07-24 18:09] LABS: ALBUMIN 3.1 g/dl (3.4-5.0); ANION GAP 11 (8-16); BILIRUBIN,TOTAL 0.4 mg/dL (0.2-1.0); CALCIUM 9.7 mg/dL (8.5-10.1); CO2 24 mmol/L (21-32); CREATININE 0.9 mg/dL (0.7-1.3); GLUCOSE,RANDOM 127 mg/dL (74-106); SGOT/AST 13 U/L (15-37); SGPT/ALT 18 U/L (12-78)
[2016-07-24 18:10] LABS: ALK PHOS 85 U/L (45-117); TOT PROT 7.3 g/dl (6.4-8.2)
[2016-07-24] MEDS ORDERED: ONDANSETRON 4 MG/2 ML VIAL IVPB PRN (18:11)
[2016-07-24 18:27] VITALS: BMI 24.9
[2016-07-24] MEDS ORDERED: IBUPROFEN 400 MG TABLET (FP) PO PRN (19:42)
[2016-07-24] MEDS ORDERED: SODIUM CHLORIDE 1,000 ML IV SCH (19:45)
[2016-07-24] MEDS: AMOX TR/POT CLAV 875MG/125MG TABLETS (FP) PO SCH (20:46)
--- NOTE | 2016-07-24 20:56 | EKG ---
Test Reason : Blood Pressure : / mmHG Vent. Rate : 096 BPM Atrial Rate : 096 BPM P-R Int : 152 ms QRS Dur : 088 ms QT Int : 332 ms P-R-T Axes : 022 063 051 degrees QTc Int : 419 ms SINUS RHYTHM WITH PREMATURE ATRIAL COMPLEXES CANNOT RULE OUT ANTEROSEPTAL INFARCT (CITED ON OR BEFORE 20-JUL-2011) ABNORMAL ECG WHEN COMPARED WITH ECG OF 19-JUL-2016 22:40, PREMATURE ATRIAL COMPLEXES ARE NOW PRESENT QUESTIONABLE CHANGE IN INITIAL FORCES OF ANTEROSEPTAL LEADS Confirmed by ROXANA TRIVEDI MD ([id number]) on 07/24/2016 8:56:37 PM Referred By: Confirmed By:ROXANA TRIVEDI MD
[2016-07-24] MEDS: DIVALPROEX SODIUM 250 MG TABLET E.C. (FP) PO SCH (22:25)
[2016-07-24] MEDS: ATORVASTATIN CA 40 MG TABLET (FP) PO SCH (22:26)
[2016-07-24] MEDS: ACETAMINOPHEN 325 MG TABLET (FP) PO PRN (23:05)
[2016-07-25] MEDS: CLINDAMYCIN HCL 150 MG CAPSULE (FP) PO SCH ×3 (05:29→17:25)
[2016-07-25] MEDS: ACETAMINOPHEN 325 MG TABLET (FP) PO PRN ×2 (05:29→22:29)
[2016-07-25 07:13] LABS: BASOPHIL 0.3 % (0-2.0); EOSINOPHIL 0.7 % (0-4.5); MCH 31.7 pg (25.7-33.7); MCHC 34.5 g/dl (32.0-35.9); MEAN CELL VOLUME 91.8 fl (80-96); MEAN PLT VOLUME 8.5 fl (7.5-11.1); NEUTROPHILS 66.3 % (42.8-82.8); PLATELET COUNT 176 K/MM3 (134-434); RDW 14.3 % (11.9-15.9); WHITE BLOOD COUNT 10.2 K/mm3 (4.0-10.0)
[2016-07-25 07:49] LABS: CREATININE 0.8 mg/dL (0.7-1.3)
[2016-07-25] MEDS: AMOX TR/POT CLAV 875MG/125MG TABLETS (FP) PO SCH ×2 (08:23→17:25)
--- NOTE | 2016-07-25 08:49 | PN ---
Physical Exam: SUBJECTIVE: Patient seen and examined. He has no complaints. He says that left knee pain is better. OBJECTIVE: Vital Signs Period Temp Pulse Resp BP Sys/Reed Pulse Ox Last 24 Hr 97.9 F-98.8 F 82-98 18-18 134-148/91-97 95-98 GENERAL: The patient is awake, alert, and fully oriented, in no acute distress. LUNGS: Breath sounds equal, clear to auscultation bilaterally, no wheezes, no crackles, no accessory muscle use. HEART: Regular rate and rhythm, S1, S2 without murmur, rub or gallop. ABDOMEN: Soft, nontender, nondistended, normoactive bowel sounds, no guarding, no rebound, no hepatosplenomegaly, no masses. EXTREMITIES: 2+ pulses, warm, well-perfused, no edema. Minimal erythema of left knee. Laboratory Results - last 24 hr 07/25/16 07/25/16 06:00 06:00 WBC 10.2 H RBC 3.74 L Hgb 11.8 Hct 34.3 L MCV 91.8 MCHC 34.5 RDW 14.3 Plt Count 176 MPV 8.5 Neutrophils % 66.3 Lymphocytes % 25.3 D Monocytes % 7.4 Eosinophils % 0.7 Basophils % 0.3 Sodium 144 Potassium 4.2 Chloride 111 H Carbon Dioxide 25 Anion Gap 8 BUN 18 D Creatinine 0.8 Random Glucose 94 D Calcium 9.0 Active Medications Generic Name Dose Route Start Last Admin Trade Name Freq PRN Reason Stop Dose Admin Acetaminophen 650 mg 07/24/16 18:11 07/25/16 05:29 Tylenol - PO 650 mg Q4H PRN Administration FEVER OR PAIN Amoxicillin/Clavulanate Potassium 1 tab 07/24/16 19:30 07/25/16 08:23 Augmentin - 875mg Tablet PO 1 tab BID@0800,1730 ATUL Administration Aspirin 81 mg 07/25/16 10:00 Asa - PO DAILY ATUL Atorvastatin Calcium 40 mg 07/24/16 22:00 07/24/16 22:26 Lipitor - PO 40 mg HS ATUL Administration Clindamycin HCl 300 mg 07/24/16 18:00 07/25/16 05:29 Cleocin - PO 300 mg Q6HPO ATUL Administration Divalproex Sodium 750 mg 07/24/16 22:00 07/24/16 22:25 Depakote - PO 750 mg HS ATUL Administration Divalproex Sodium 500 mg 07/25/16 10:00 Depakote - PO DAILY ATUL Fluphenazine HCl 1 mg 07/24/16 22:00 07/24/16 22:25 Prolixin - PO 1 mg BID ATUL Administration Sodium Chloride 1,000 mls @ 83 mls/hr 07/24/16 19:45 07/24/16 20:46 Normal Saline - IV 83 mls/hr ASDIR ATUL Administration Ibuprofen 400 mg 07/24/16 19:42 Motrin - PO Q6H PRN PAIN Ondansetron HCl 4 mg 07/24/16 18:11 Zofran Injection IVPB Q6H PRN NAUSEA Sertraline HCl 100 mg 07/25/16 10:00 Zoloft - PO DAILY ATUL ASSESSMENT/PLAN: This is a 66-year-old man from [facility] assisted living with a history of hyperlipidemia, bipolar disorder, recent left knee cellulitis who presented to the ER with left knee pain, inability to walk, and diarrhea. 1. Left knee cellulitis - Improving - Afebrile and WBC improving - Continue Augmentin, Clindamycin 2. Inability to ambulate secondary to left knee pain - Physical therapy - Ibuprofen as needed 3. Diarrhea - Likely antibiotic-associated - Stool for C. difficile pending - Discontinue IV fluid 4. Hyperlipidemia - Continue Lipitor 5. Bipolar disorder - Continue Depakote, Prolixin, Zoloft Problem List - Problems (1) Bipolar 1 disorder Code(s): F31.9 - BIPOLAR DISORDER, UNSPECIFIED (2) Diarrhea Code(s): R19.7 - DIARRHEA, UNSPECIFIED (4) Hyperlipidemia Code(s): E78.5 - HYPERLIPIDEMIA, UNSPECIFIED Visit type - Emergency Visit Emergency Visit: Yes ED Registration Date: 07/24/16 Care time: The patient presented to the Emergency Department on the above date and was hospitalized for further evaluation of their emergent condition. - New Patient This patient is new to me today: No - Critical Care Critical Care patient: No - Discharge Referral Referred to [facility] No
[2016-07-25] MEDS ORDERED: PT OWN MED DRAWER 7, Y5N ONE ×2 (09:24→20:53)
[2016-07-25] MEDS: SERTRALINE HCL 50 MG TABLET (FP) PO SCH (09:31)
[2016-07-25] MEDS: ASPIRIN 81 MG CHEWABLE TABLETS PO SCH (09:31)
[2016-07-25] MEDS: DIVALPROEX SODIUM 500 MG TABLET E.C. PO SCH (09:32)
[2016-07-25] MEDS: DIVALPROEX SODIUM 250 MG TABLET E.C. (FP) PO SCH (22:28)
[2016-07-25] MEDS: ATORVASTATIN CA 40 MG TABLET (FP) PO SCH (22:28)
[2016-07-26] MEDS: CLINDAMYCIN HCL 150 MG CAPSULE (FP) PO SCH ×3 (00:24→12:00)
[2016-07-26 07:59] LABS: BASOPHIL 0.9 % (0-2.0); EOSINOPHIL 1.3 % (0-4.5); MCH 31.7 pg (25.7-33.7); MCHC 34.1 g/dl (32.0-35.9); MEAN PLT VOLUME 8.3 fl (7.5-11.1); NEUTROPHILS 60.3 % (42.8-82.8); PLATELET COUNT 176 K/MM3 (134-434); RDW 14.5 % (11.9-15.9); WHITE BLOOD COUNT 6.5 K/mm3 (4.0-10.0)
[2016-07-26] MEDS: AMOX TR/POT CLAV 875MG/125MG TABLETS (FP) PO SCH (08:16)
[2016-07-26 08:18] LABS: CALCIUM 9.2 mg/dL (8.5-10.1); CREATININE 0.7 mg/dL (0.7-1.3)
[2016-07-26] MEDS: SERTRALINE HCL 50 MG TABLET (FP) PO SCH (10:00)
[2016-07-26] MEDS: ASPIRIN 81 MG CHEWABLE TABLETS PO SCH (10:00)
[2016-07-26] MEDS: DIVALPROEX SODIUM 500 MG TABLET E.C. PO SCH (10:00)
--- NOTE | 2016-07-26 11:54 | PN ---
Physical Exam: SUBJECTIVE: Patient seen and examined OBJECTIVE: Vital Signs Period Temp Pulse Resp BP Sys/Reed Pulse Ox Last 24 Hr 97.4 F-98.2 F 86-92 18-20 121-147/89-97 96-96 GENERAL: The patient is awake, alert, and fully oriented, in no acute distress. HEAD: Normal with no signs of trauma. EYES: PERRL, extraocular movements intact, sclera anicteric, conjunctiva clear. No ptosis. ENT: Ears normal, nares patent, oropharynx clear without exudates, moist mucous membranes. NECK: Trachea midline, full range of motion, supple. LUNGS: Breath sounds equal, clear to auscultation bilaterally, no wheezes, no crackles, no accessory muscle use. HEART: Regular rate and rhythm, S1, S2 without murmur, rub or gallop. ABDOMEN: Soft, nontender, nondistended, normoactive bowel sounds, no guarding, no rebound, no hepatosplenomegaly, no masses. EXTREMITIES: 2+ pulses, warm, well-perfused, no edema. NEUROLOGICAL: Cranial nerves II through XII grossly intact. Normal speech, gait not observed. PSYCH: Normal mood, normal affect. SKIN: Warm, dry, normal turgor, no rashes or lesions noted Laboratory Results - last 24 hr 07/26/16 07/26/16 06:45 06:45 WBC 6.5 D RBC 3.70 L Hgb 11.7 Hct 34.4 L MCV 93.0 MCHC 34.1 RDW 14.5 Plt Count 176 MPV 8.3 Neutrophils % 60.3 Lymphocytes % 31.5 D Monocytes % 6.0 Eosinophils % 1.3 D Basophils % 0.9 Sodium 145 Potassium 4.3 Chloride 111 H Carbon Dioxide 26 Anion Gap 8 BUN 18 Creatinine 0.7 Random Glucose 83 Calcium 9.2 Active Medications Generic Name Dose Route Start Last Admin Trade Name Freq PRN Reason Stop Dose Admin Acetaminophen 650 mg 07/24/16 18:11 07/25/16 22:29 Tylenol - PO 650 mg Q4H PRN Administration FEVER OR PAIN Amoxicillin/Clavulanate Potassium 1 tab 07/24/16 19:30 07/26/16 08:16 Augmentin - 875mg Tablet PO 1 tab BID@0800,1730 ATUL Administration Aspirin 81 mg 07/25/16 10:00 07/26/16 10:00 Asa - PO 81 mg DAILY ATUL Administration Atorvastatin Calcium 40 mg 07/24/16 22:00 07/25/16 22:28 Lipitor - PO 40 mg HS ATUL Administration Clindamycin HCl 300 mg 07/24/16 18:00 07/26/16 06:07 Cleocin - PO 300 mg Q6HPO ATUL Administration Divalproex Sodium 750 mg 07/24/16 22:00 07/25/16 22:28 Depakote - PO 750 mg HS ATUL Administration Divalproex Sodium 500 mg 07/25/16 10:00 07/26/16 10:00 Depakote - PO 500 mg DAILY ATUL Administration Fluphenazine HCl 1 mg 07/24/16 22:00 07/26/16 10:00 Prolixin - PO 1 mg BID ATUL Administration Ibuprofen 400 mg 07/24/16 19:42 07/25/16 09:39 Motrin - PO 400 mg Q6H PRN Administration PAIN Ondansetron HCl 4 mg 07/24/16 18:11 Zofran Injection IVPB Q6H PRN NAUSEA Sertraline HCl 100 mg 07/25/16 10:00 07/26/16 10:00 Zoloft - PO 100 mg DAILY ATUL Administration ASSESSMENT/PLAN:
--- NOTE | 2016-07-26 15:18 | PN ---
Teaching Attending Note Name of Resident: Rhett Thao ATTENDING PHYSICIAN STATEMENT I saw and evaluated the patient. I reviewed the resident's note and discussed the case with the resident. I agree with the resident's findings and plan as documented. SUBJECTIVE: Patient has no complaints. OBJECTIVE: Vital Signs Period Temp Pulse Resp BP Sys/Reed Pulse Ox Last 24 Hr 97.8 F-98 F 86-92 18-20 124-147/90-97 96-96 GENERAL: The patient is awake, alert, and fully oriented, in no acute distress. LUNGS: Breath sounds equal, clear to auscultation bilaterally, no wheezes, no crackles, no accessory muscle use. HEART: Regular rate and rhythm, S1, S2 without murmur, rub or gallop. ABDOMEN: Soft, nontender, nondistended, normoactive bowel sounds, no guarding, no rebound, no hepatosplenomegaly, no masses. EXTREMITIES: 2+ pulses, warm, well-perfused, no edema. Minimal erythema of left knee. ASSESSMENT AND PLAN: This is a 66-year-old man from [facility] assisted living with a history of hyperlipidemia, bipolar disorder, recent left knee cellulitis who presented to the ER with left knee pain, inability to walk, and diarrhea. 1. Left knee cellulitis - Improving - Afebrile and leukocytosis has resolved - Complete course of Augmentin, Clindamycin 2. Inability to ambulate secondary to left knee pain - Patient ambulated 300 feet with rolling walker with physical therapy - Ibuprofen as needed 3. Diarrhea - Likely antibiotic-associated - Stool negative for C. difficile 4. Hyperlipidemia - Continue Lipitor 5. Bipolar disorder - Continue Depakote, Prolixin, Zoloft 6. Disposition - Discharge back to [facility] today Problem List - Problems (1) Cellulitis of knee, left Code(s): L03.116 - CELLULITIS OF LEFT LOWER LIMB (2) Diarrhea Code(s): R19.7 - DIARRHEA, UNSPECIFIED (3) Unable to ambulate Code(s): R26.2 - DIFFICULTY IN WALKING, NOT ELSEWHERE CLASSIFIED (4) Bipolar 1 disorder Code(s): F31.9 - BIPOLAR DISORDER, UNSPECIFIED (5) Frequent falls Code(s): R29.6 - REPEATED FALLS (6) Hyperlipidemia Code(s): E78.5 - HYPERLIPIDEMIA, UNSPECIFIED
--- NOTE | 2016-07-26 16:38 | DS ---
Physical Exam: SUBJECTIVE: Patient seen and examined. Referred from [place] due to inability to bear weight on the left knee. OBJECTIVE: Vital Signs Period Temp Pulse Resp BP Sys/Reed Pulse Ox Last 24 Hr 97.4 F-98 F 86-92 18-20 124-147/90-97 96-96 PHYSICAL EXAM GENERAL: The patient is awake, alert, and fully oriented, in no acute distress. HEAD: Normal with no signs of trauma. EYES: PERRL, extraocular movements intact, sclera anicteric, conjunctiva clear. ENT: Ears normal, nares patent, oropharynx clear without exudates, moist mucous membranes. NECK: Trachea midline, full range of motion, supple. LUNGS: Breath sounds equal, clear to auscultation bilaterally, no wheezes, no crackles, no accessory muscle use. HEART: Regular rate and rhythm, S1, S2 without murmur, rub or gallop. ABDOMEN: Soft, nontender, nondistended, normoactive bowel sounds, no guarding, no rebound, no hepatosplenomegaly, no masses. EXTREMITIES: 2+ pulses, warm, well-perfused, no edema. 4/5 strength at shoulders /biceps/triceps/hand clinical reviewer, hip/knees/ankles. NEUROLOGICAL: Cranial nerves II through XII grossly intact. Normal speech, gait not observed. PSYCH: Normal mood, normal affect. SKIN: Warm, dry, normal turgor, no rashes or lesions noted. LABS Laboratory Results - last 24 hr 07/26/16 07/26/16 06:45 06:45 WBC 6.5 D RBC 3.70 L Hgb 11.7 Hct 34.4 L MCV 93.0 MCHC 34.1 RDW 14.5 Plt Count 176 MPV 8.3 Neutrophils % 60.3 Lymphocytes % 31.5 D Monocytes % 6.0 Eosinophils % 1.3 D Basophils % 0.9 Sodium 145 Potassium 4.3 Chloride 111 H Carbon Dioxide 26 Anion Gap 8 BUN 18 Creatinine 0.7 Random Glucose 83 Calcium 9.2 HOSPITAL COURSE: Date of Admission:07/24/16 - Date of Discharge: 07/26/16 66 yr old man hyperlipidemia and bipolar disorder referred by [facility] assisted living facility because patient was unable to bear weight and facility is unable to provide the level of care patient requires. Patient was recently discharged from [facility] on 07/23 after being treated for left knee cellulitis. He was evaluated by PT during this visit; he tolerated walking 300 feet well using a rolling walker improved from previous admission where he walked 75 feet. He has a walker at home which he is encouraged to use. He also complained of loose bowel movements, C.Diff was negative, loose stools likely from antibiotic use. He is to complete his antibiotic course at [facility] initiated during previous discharge. (started on 07/23/2016, Augmentin will finish on 07/29, and Cleocin will finish on 08/01). Minutes to complete discharge: 35 Discharge Summary Reason For Visit: UNABLE TO WALK,CELLULITIS Current Active Problems Cellulitis of knee, left (Acute) Diarrhea (Acute) Bipolar 1 disorder (Chronic) Frequent falls (Chronic) Hyperlipidemia (Chronic) Condition: Fair - Instructions Diet, Activity, Other Instructions: Continue the antibiotics, Cleocin 300mg 1 tablet every 6 hours and Augmentin 1 tablet twice daily (started on 07/23/2016, Augmentin will finish on 07/29, and Cleocin will finish on 08/01). Drink plenty of water. Resume your home medications. Use your walker when ambulating. If you develop chest pain, palpitations, or any new symptoms return to the hospital. Referrals: Daiana Saleem MD [Primary Care Provider] - Disposition: HOME - Home Medications Comprehensive Discharge Medication List: Ambulatory Orders Aspirin [ASA -] 81 mg PO DAILY 07/19/16 Atorvastatin Ca [Lipitor] 40 mg PO HS 07/19/16 Divalproex Sodium [Depakote] 750 mg PO HS 07/19/16 Fluphenazine HCl 1 mg PO BID 07/19/16 Sertraline HCl [Zoloft -] 100 mg PO DAILY 07/19/16 Cyclobenzaprine HCl 5 mg PO BID 07/24/16 Fluphenazine Decanoate 25 mg IM ASDIR 07/24/16 Amox-Tr/K Cl [Augmentin 875-125mg Tablet -] 1 tab PO BID@0800,1730 tablet 07/26 Clindamycin [Cleocin -] 300 mg PO Q6HPO capsule 07/26/16 This patient is new to me today: Yes Date on this admission: 07/26/16 Emergency Visit: No Critical Care patient: No - Discharge Referral Referred to [facility] No
[2016-07-26 18:11] VITALS: BP 135/96; PULSE 91; TEMP 97.6
== END 2016-07-26 18:13 | disposition home or self-care (01) ==
LOC: JER 14:30 → JERBED 17:32 → J7W 19:05
PROVIDERS: ADMIT Internal Medicine; ATTEND Internal Medicine
DX: L03.116 Cellulitis of left lower limb (principal); R19.7 Diarrhea, unspecified; R26.2 Difficulty in walking, not elsewhere classified; F31.9 Bipolar disorder, unspecified; R29.6 Repeated falls; E78.5 Hyperlipidemia, unspecified
CPT/HCPCS: 36415; 71010-TC; 80048; 80053; 85025; 87324; 87449; 93005; 93010; 97116-GP; 97161-GP; 99284-25; G0378

== ENCOUNTER 2017-01-28 12:45 | Inpatient (IN) | payer OTHER ==
--- NOTE | 2017-01-28 13:20 | PDOC ---
History of Present Illness - General History Source: Patient Exam Limitations: No Limitations - History of Present Illness Initial Comments: 01/28/17 14:07 Patient is a 66 year old male with a significant past medical history of left lower extremity [place] (remission), borderline diabetes, borderline hyperlipidemia, coronary disease, cardiac stent (1 year ago), recurring left knee swelling who presents to the ED with complains of diffuse abdominal pain beginning 4 days prior to arrival. Patient reports 4 days ago he underwent multiple episodes of vomiting secondary to nausea. He also reported multiple episodes of diarrhea yesterday. He reports intermediary left knee pain beginning yesterday. He reports slight erythema and edema of the left knee that is intensified with flexion and extension. Denies contact with sick individuals. Denies fever, chills. Denies dysuria or urinary frequency. Denies appendix removal. Denies history of Arthritis. Denies numbness, weakness. Denies any other symptoms. Allergies: N/A <Rubin Bustamante - Last Filed: 01/28/17 16:57> - General History Source: Patient, Old Records Exam Limitations: No Limitations <Channing Martinez - Last Filed: 01/28/17 17:03> - General Chief Complaint: Pain, Acute Stated Complaint: ABD PAIN Time Seen by Provider: 01/28/17 12:59 Past History <Rubin Bustamante - Last Filed: 01/28/17 16:57> - Past Medical History Anemia: No Asthma: No Cancer: No Cardiac Disorders: No CVA: No COPD: No CHF: No Dementia: No Diabetes: No GI Disorders: No Disorders: No HTN: No Hypercholesterolemia: Yes Liver Disease: No Psychiatric Problems: Yes (bipolar) Seizures: No Thyroid Disease: No - Surgical History Abdominal Surgery: No Appendectomy: Yes Cardiac Surgery: No Cholecystectomy: No Lung Surgery: No Neurologic Surgery: No Orthopedic Surgery: No - Immunization History Immunization Up to Date: Yes - Psycho/Social/Smoking Cessation Hx Anxiety: No Suicidal Ideation: No Smoking Status: Yes Smoking History: Former smoker Have you smoked in the past 12 months: No Number of Cigarettes Smoked Daily: 10 'Breaking Loose' booklet given: 07/24/16 Hx Alcohol Use: No Drug/Substance Use Hx: No Substance Use Type: None Hx Substance Use Treatment: No <Channing Martinez - Last Filed: 01/28/17 17:03> - Past Medical History Allergies/Adverse Reactions: Allergies Allergy/AdvReac Type Severity Reaction Status Date / Time No Known Allergies Allergy Verified 07/24/16 14:40 Home Medications: Ambulatory Orders Aspirin [ASA -] 81 mg PO DAILY 07/19/16 Atorvastatin Ca [Lipitor] 40 mg PO HS 07/19/16 Divalproex Sodium [Depakote] 750 mg PO HS 07/19/16 Fluphenazine HCl 1 mg PO BID 07/19/16 Sertraline HCl [Zoloft -] 100 mg PO DAILY 07/19/16 Cyclobenzaprine HCl 5 mg PO BID 07/24/16 Fluphenazine Decanoate 25 mg IM ASDIR 07/24/16 Amox-Tr/K Cl [Augmentin 875-125mg Tablet -] 1 tab PO BID@0800,1730 tablet 07/26 Clindamycin [Cleocin -] 300 mg PO Q6HPO capsule 07/26/16 Review of Systems - Review of Systems Able to Perform ROS?: Yes Comments:: 01/28/17 14:07 GENERAL/CONSTITUTIONAL: No fever or chills. No weakness. HEAD, EYES, EARS, NOSE AND THROAT: No change in vision. No ear pain or discharge. No sore throat. CARDIOVASCULAR: No chest pain or shortness of breath. RESPIRATORY: No cough, wheezing, or hemoptysis. GASTROINTESTINAL:+Nausea. + vomiting. +diarrhea. No constipation. GENITOURINARY: No dysuria, frequency, or change in urination. MUSCULOSKELETAL: +Left knee edema. No joint or pain. No neck or back pain. SKIN: No rash NEUROLOGIC: No headache, vertigo, loss of consciousness, or change in strength/ sensation. ENDOCRINE: No increased thirst. No abnormal weight change. HEMATOLOGIC/LYMPHATIC: No anemia, easy bleeding, or history of blood clots. ALLERGIC/IMMUNOLOGIC: No hives or skin allergy. All Other Systems: Reviewed and Negative <Rubin Bustamante - Last Filed: 01/28/17 16:57> *Physical Exam - Vital Signs Last Vital Signs Temp Pulse Resp BP Pulse Ox 98.8 F 99 H 18 128/94 95 01/28/17 13:12 01/28/17 13:12 01/28/17 13:12 01/28/17 13:12 01/28/17 13:12 - Physical Exam Comments: 01/28/17 14:07 GENERAL: Awake, alert, and fully oriented, in no acute distress HEAD: No signs of trauma EYES: PERRLA, EOMI, sclera anicteric, conjunctiva clear ENT: Auricles normal inspection, hearing grossly normal, nares patent, oropharynx clear without exudates. Moist mucosa NECK: Normal ROM, supple, no lymphadenopathy, JVD, or masses LUNGS: Breath sounds equal, clear to auscultation bilaterally. No wheezes, and no crackles HEART: Regular rate and rhythm, normal S1 and S2, no murmurs, rubs or gallops ABDOMEN: +Right lower quadrant tender to palpation. +Left upper Quadrant tender to palpation. Soft, normoactive bowel sounds. No guarding, no rebound. No masses EXTREMITIES: +Left knee mild joint pain diffusion. Flexes 30 degrees. + Active knee flexion. Normal range of motion, no edema. No clubbing or cyanosis. No cords, erythema. NEUROLOGICAL: Cranial nerves II through XII grossly intact. Normal speech, SKIN: + Erythema of left inferior knee Warm, Dry, normal turgor, no rashes or lesions noted. <Rubin Bustamante - Last Filed: 01/28/17 16:57> ED Treatment Course - LABORATORY CBC & Chemistry Diagram: 01/28/17 13:22 01/28/17 13:22 - ADDITIONAL ORDERS Additional order review: 01/28/17 13:22 RBC 4.05 MCV 90.3 MCHC 33.5 RDW 14.6 MPV 9.5 D Neutrophils % 64.9 Lymphocytes % 17.3 D Monocytes % 12.4 H D Eosinophils % 5.0 H D Basophils % 0.4 <Rubin Bustamante - Last Filed: 01/28/17 16:57> - LABORATORY CBC & Chemistry Diagram: 01/28/17 13:22 01/28/17 13:22 - RADIOLOGY Radiology Studies Ordered: Category Date Time Status ABDOMEN & PELVIS CT WITH CONTR [CT] Stat CT Scan 01/28/17 13:01 Ordered <Channing Martinez - Last Filed: 01/28/17 17:03> Medical Decision Making - Medical Decision Making 01/28/17 15:02 Called [facility] @14:50pm. Awaiting Call back Dr. Ambrose from Ortho Called back @15:03pm. Called Dr. Grove @16:28pm. Awaiting Call back. Called back @ 16:35pm. Called Dr. Hammond @16:55pm. Case Discussed. <Rubin Bustamante - Last Filed: 01/28/17 16:57> - Medical Decision Making 01/28/17 13:26 A portion of this note was documented by scribe services under my direction. I have reviewed the details of the note, within reason, and agree with the documentation with the following case summary and management plan written by me. Patient treated in the ED. Nursing notes are reviewed and incorporated into the medical decision-making. Vital signs reviewed. Peripheral IV access obtained by the nurse, laboratory studies are drawn and sent, reviewed and interpreted by myself. Vital Signs Temp Pulse Resp BP Pulse Ox 98.8 F 99 H 18 128/94 95 01/28/17 13:12 01/28/17 13:12 01/28/17 13:12 01/28/17 13:12 01/28/17 13:12 66-year-old male with history of left lower extremity [place] in remission, borderline diabetes, borderline hyperlipidemia, coronary disease status post 1 cardiac stent presents with 2 complaints. The patient has had 4 days of abdominal discomfort. 4 days ago had several episodes of nausea vomiting which now resolved. Yesterday, developed several episodes of loose stools. Denies sick contacts or recent travels. Patient is however from a nursing facility, [place]. Denies fevers or chills. Stated that he has his appendix. Denies dysuria or urinary frequency. Patient is also complaining about left knee pain. Stated he has a history of left knee swelling. States that he developed erythema and some mild edema along the left knee worsened with flexion and extension. Patient reports that he does have a history of arthritis and occasionally into his with a cane reports that he now uses cane for all times. Denies numbness or weakness. Regarding the abdomen, we'll need to rule out appendicitis versus colitis versus gastroenteritis. We'll obtain labs, CAT scan of the abdomen pelvis. Labs and reassess. Differential of the left knee includes left knee cellulitis. The patient does have some underlying edema in the left knee but given the erythema, we'll not advise to obtain left knee arthrocentesis at this time. Left knee x-ray ordered. Labs included cultures and ESR CRP ordered. Patient will likely need to be admitted for further evaluation. 01/28/17 13:34 As of note, pt was here in Jun 2016 for similar complaints of left knee. Turned out to be knee cellulitis. 01/28/17 16:30 Knee x-ray reviewed. No acute findings. CAT scan of the abdomen pelvis reviewed. No evidence of intestinal obstruction, acute diverticulitis or acute appendicitis. There is hydropic distention of the gallbladder. There is a loculated right lower quadrant fluid measuring 3.0 x 1.8 cm that is nonspecific. Patient did not have any recent surgery in that area. Also has mild thickening of the urinary bladder. It also noted to have left adrenal gland nodule. Also noted to have microcyst in both kidneys. Patient was seen and evaluated by Dr. Lewis. Agrees that this is likely cellulitis and not septic joint. CBC, BMP 01/28/17 13:22 01/28/17 13:22 CMP Sodium 143 mmol/L (136-145) 01/28/17 13:22 Potassium 3.6 mmol/L (3.5-5.1) 01/28/17 13:22 Chloride 112 mmol/L (98-107) H 01/28/17 13:22 Carbon Dioxide 22 mmol/L (21-32) 01/28/17 13:22 Anion Gap 9 (8-16) 01/28/17 13:22 BUN 16 mg/dL (7-18) 01/28/17 13:22 Creatinine 0.9 mg/dL (0.7-1.3) D 01/28/17 13:22 Creat Clearance w eGFR > 60 (>60) 01/28/17 13:22 Random Glucose 104 mg/dL (74-106) D 01/28/17 13:22 Lactic Acid 0.6 mmol/L (0.4-2.0) 01/28/17 13:22 Uric Acid 8.9 mg/dL (2.6-7.2) H D 01/28/17 13:22 Calcium 8.5 mg/dL (8.5-10.1) 01/28/17 13:22 Total Bilirubin 0.9 mg/dL (0.2-1.0) D 01/28/17 13:22 AST 9 U/L (15-37) L D 01/28/17 13:22 ALT 16 U/L (12-78) 01/28/17 13:22 Alkaline Phosphatase 114 U/L (45-117) D 01/28/17 13:22 Creatine Kinase 47 IU/L (39-308) 01/28/17 13:22 Troponin I < 0.02 ng/ml (0.00-0.05) 01/28/17 13:22 C-Reactive Protein 3.5 MG/DL (0.00-0.3) H 01/28/17 13:22 Total Protein 6.6 g/dl (6.4-8.2) 01/28/17 13:22 Albumin 3.2 g/dl (3.4-5.0) L 01/28/17 13:22 Lipase 129 U/L (73-393) 01/28/17 13:22 UA pending. However, patient is noted have an abnormal fluid collection in the right lower quadrant. Patient does not recall any history of such fluid. Given the pain overlying where the loculation is, we'll admit the patient to the hospital for further evaluation. Pt's states that he's a patient of Dr. Groev. 01/28/17 16:[address] Grove's [employer]IC[employer] APPRENTICE. Accepted to med/surg admission. They request Dr. Lr for GI consultation. Case discussed in detail with admitting physician including history, physical exam and ancillary studies. Admitting physician has assumed care for the patient, will follow all pending diagnostics and will complete the evaluation and treatment. 01/28/17 16:[address] Pak. States patient's findings are more consistent with potential surgical workup. Recommends surgical consultation. 01/28/17 17:[address] Hammond. He will see patient. Given the fluid collection is over the femoral vessels, recommends vascular surgery consult. Dr. Saud maier. <Channing Martinez - Last Filed: 01/28/17 17:03> *DC/Admit/Observation/Transfer - Attestations Scribe Attestion: 01/28/17 14:08 Documentation prepared by Rubin Bustamante, acting as medical records assistant for Channing Martinez MD. <Rubin Bustamante - Last Filed: 01/28/17 16:57> - Discharge Dispostion Admit: Yes <Channing Martinez - Last Filed: 01/28/17 17:03> Diagnosis at time of Disposition: Abdominal fluid collection
[2017-01-28 13:46] LABS: BASOPHIL 0.4 % (0-2.0); MCH 30.2 pg (25.7-33.7); MCHC 33.5 g/dl (32.0-35.9); MEAN CELL VOLUME 90.3 fl (80-96); MEAN PLT VOLUME 9.5 fl (7.5-11.1); NEUTROPHILS 64.9 % (42.8-82.8); PLATELET COUNT 158 K/MM3 (134-434); RDW 14.6 % (11.9-15.9); WHITE BLOOD COUNT 8.3 K/mm3 (4.0-10.0)
[2017-01-28 14:08] LABS: INR 1.1 (0.82-1.09); PROTHROMBIN TIME (PATIENT) 12.1 SEC (9.98-11.88)
[2017-01-28 14:11] LABS: ACTIVATED PTT 27.9 SECONDS (26.9-34.4)
[2017-01-28 14:12] LABS: ALBUMIN 3.2 g/dl (3.4-5.0); ANION GAP 9 (8-16); BILIRUBIN,TOTAL 0.9 mg/dL (0.2-1.0); C-REACTIVE PROTEIN 3.5 MG/DL (0.00-0.3); CALCIUM 8.5 mg/dL (8.5-10.1); CO2 22 mmol/L (21-32); CREATININE 0.9 mg/dL (0.7-1.3); GLUCOSE,RANDOM 104 mg/dL (74-106); SGOT/AST 9 U/L (15-37); SGPT/ALT 16 U/L (12-78); TOT PROT 6.6 g/dl (6.4-8.2); URIC ACID 8.9 mg/dL (2.6-7.2)
[2017-01-28 14:13] LABS: ALK PHOS 114 U/L (45-117); CPK 47 IU/L (39-308); TROPONIN I < 0.02 ng/ml (0.00-0.05)
[2017-01-28 15:03] LABS: ERYTHROCYTE SEDIMENTATION RATE 29 mm/hr (0-20)
[2017-01-28] MEDS ORDERED: CEFTRIAXONE 1 GM in DEXTROSE 5%-WATER - 50 ML IVPB ONE (15:08)
[2017-01-28] MEDS ORDERED: CEFTRIAXONE 50 ML ONE (15:55)
--- NOTE | 2017-01-28 16:19 | CONSULT ---
Consult - text type - Consultation Consultation Note: Asked to eval this 66M with PMH significant for with a significant past medical history of borderline diabetes, borderline hyperlipidemia, coronary disease, cardiac stent (1 year ago), who presented to ER with diffuse abdominal pain beginning 4 days prior to arrival. I am sked to evaluate his left knee. Has been painful since yesterday. Has history of prior cellulitis of this knee 2016 which responded well to Augmentin. PMH: as above MEDS: reviewed in chart All: KNDA FH: n/c ROS: nausea and vomitting for past 4 days, no weight loss, no fevers PE: AOx3, NAD B/L UE FROM without pain Left knee exam: no effusion, mild redness anterior to patella, no tenderness at joint line, ROM 10-60 prior to onset of anterior knee pain calves soft distal pulses 2+ Motor exam intact WBC 8.3 ESR 29 Temp 98.8 Imp: Early cellulitis anterior knee, no signs of joint involvement -recommend oral antibiotics for 7 days -recommend rest, elevation -F/u in office next week for clinical exam -will call if increasing pain, redness, fevers, or joint swelling -ok for d/c from ER from my standpoint if otherwise medically stable
[2017-01-28] MEDS ORDERED: METRONIDAZOLE 500 MG PREMIXED 100 ML IVPB ONE ×2 (17:01→17:10)
[2017-01-28 17:32] LABS: URINE APPEARANCE CLEAR; URINE BILIRUBIN NEGATIVE (NEGATIVE); URINE BLOOD NEGATIVE (NEGATIVE); URINE COLOR LT. YELLOW; URINE GLUCOSE (UA) NEGATIVE (NEGATIVE); URINE KETONE NEGATIVE (NEGATIVE); URINE LEUK ESTERASE NEGATIVE (NEGATIVE); URINE NITRITE NEGATIVE (NEGATIVE); URINE PROTEIN NEGATIVE (NEGATIVE); URINE UROBILINOGEN 0.2 mg/dL (0.2-1.0)
[2017-01-28 20:34] VITALS: BMI 27.2
--- NOTE | 2017-01-28 20:43 | CONSULT ---
Consult Consult Specialty:: Surgery Reason for Consultation:: Abdominal/groin pain - History of Present Illness Chief Complaint: Abdominal/groin pain History of Present Illness: 66 female seen in the ER for right sided abdominal/groin pain x 1-2 days No fevers No diarrhea No nausea/vomiting +BM - History Source History Provided By: Patient, Medical Record - Past Medical History Cardio/Vascular: Yes: Hyperlipdemia - Alcohol/Substance Use Hx Alcohol Use: No - Smoking History Smoking history: Former smoker Have you smoked in the past 12 months: No Aproximately how many cigarettes per day: 0 If you are a former smoker, when did you quit?: 2016 Home Medications - Allergies Allergies/Adverse Reactions: Allergies Allergy/AdvReac Type Severity Reaction Status Date / Time No Known Allergies Allergy Verified 07/24/16 14:40 - Home Medications Home Medications: Ambulatory Orders Aspirin [ASA -] 81 mg PO DAILY 07/19/16 Atorvastatin Ca [Lipitor] 40 mg PO HS 07/19/16 Divalproex Sodium [Depakote] 750 mg PO HS 07/19/16 Fluphenazine HCl 1 mg PO BID 07/19/16 Sertraline HCl [Zoloft -] 100 mg PO DAILY 07/19/16 Cyclobenzaprine HCl 5 mg PO BID 07/24/16 Fluphenazine Decanoate 25 mg IM ASDIR 07/24/16 Amox-Tr/K Cl [Augmentin 875-125mg Tablet -] 1 tab PO BID@0800,1730 tablet 07/26 Clindamycin [Cleocin -] 300 mg PO Q6HPO capsule 07/26/16 Family Disease History - Family Disease History Family History: Denies Review of Systems - Review of Systems Constitutional: denies: Chills, Fever, Malaise Neck: reports: No Symptoms Cardiovascular: denies: Chest Pain Respiratory: denies: Cough Gastrointestinal: reports: Abdominal Pain. denies: Diarrhea Genitourinary: reports: No Symptoms Neurological: denies: Change in LOC Pain Intensity: 3 Physical Exam Vital Signs: Vital Signs Temperature 99.6 F 01/28/17 20:26 Pulse Rate 99 H 01/28/17 20:26 Respiratory Rate 18 01/28/17 20:26 Blood Pressure 135/83 01/28/17 20:26 O2 Sat by Pulse Oximetry (%) 94 L 01/28/17 19:06 Constitutional: Yes: Calm HENT: Yes: WNL Neck: Yes: Supple Cardiovascular: Yes: WNL Respiratory: Yes: Regular Gastrointestinal: Yes: Soft, Other (No inguinal hernia noted History of appendectomy). No: Tenderness, Tenderness, Rebound Renal/: Yes: Other (Right scrotal pain- + thickened cord noted- possibly from epididymis) Extremities: Yes: WNL Neurological: Yes: Alert, Oriented Labs: CBC, BMP 01/28/17 13:22 01/28/17 13:22 Imaging - Results Cat Scan: Report Reviewed, Image Reviewed Problem List - Problems (1) Abdominal fluid collection Code(s): R18.8 - OTHER ASCITES (2) Right groin pain Code(s): R10.31 - RIGHT LOWER QUADRANT PAIN Assessment/Plan 66 male with right abdominal/groin pain Small fluid collection noted near femoral vessels Pain mostly over right groin- thickened cord noted in right scrotum Recommend vascular and urology evaluations No emergent general surgery intervention needed at this time
[2017-01-28] MEDS: HEPARIN NA (PORCINE) 5,000 UNITS/ML 1ML VIAL SQ SCH (21:00)
[2017-01-28] MEDS: ATORVASTATIN CA 40 MG TABLET (FP) PO SCH (21:00)
[2017-01-28] MEDS: DIVALPROEX SODIUM 250 MG TABLET E.C. (FP) PO SCH (21:00)
[2017-01-28] MEDS: CYCLOBENZAPRINE HCL 10 MG TABLET (FP) PO SCH (21:01)
[2017-01-28] MEDS ORDERED: CYCLOBENZAPRINE HCL 5 MG PO SCH (22:00)
[2017-01-29 08:20] LABS: BASOPHIL 0.3 % (0-2.0); MCH 30.7 pg (25.7-33.7); MCHC 34.5 g/dl (32.0-35.9); MEAN CELL VOLUME 89.1 fl (80-96); MEAN PLT VOLUME 9.7 fl (7.5-11.1); NEUTROPHILS 62.1 % (42.8-82.8); PLATELET COUNT 163 K/MM3 (134-434); RDW 14.7 % (11.9-15.9); WHITE BLOOD COUNT 8.7 K/mm3 (4.0-10.0)
[2017-01-29 08:53] LABS: ANION GAP 11 (8-16); CALCIUM 8.7 mg/dL (8.5-10.1); CO2 22 mmol/L (21-32); GLUCOSE,RANDOM 89 mg/dL (74-106); SGOT/AST 5 U/L (15-37); SGPT/ALT 16 U/L (12-78)
[2017-01-29 08:55] LABS: ALK PHOS 96 U/L (45-117); BILIRUBIN,TOTAL 1.1 mg/dL (0.2-1.0); TOT PROT 6.6 g/dl (6.4-8.2)
--- NOTE | 2017-01-29 09:41 | PN ---
Progress Note (short form) - Note Progress Note: No acute events States pain improved No nausea/vomiting Vital Signs Period Temp Pulse Resp BP Sys/Reed Pulse Ox Last 24 Hr 98.2 F-99.6 F 94-109 18-20 123-135/83-94 94-96 Abd soft, NT CBC, BMP 01/29/17 06:05 01/29/17 06:05 No emergent general surgical intervention needed at this time Thank you Problem List - Problems (1) Abdominal fluid collection Code(s): R18.8 - OTHER ASCITES (2) Right groin pain Code(s): R10.31 - RIGHT LOWER QUADRANT PAIN
[2017-01-29] MEDS ORDERED: PT OWN MED DRAWER 7, Y5N ONE (09:43)
[2017-01-29] MEDS: CYCLOBENZAPRINE HCL 10 MG TABLET (FP) PO SCH ×2 (09:48→21:48)
[2017-01-29] MEDS: ASPIRIN 81 MG CHEWABLE TABLETS PO SCH (09:50)
[2017-01-29] MEDS: HEPARIN NA (PORCINE) 5,000 UNITS/ML 1ML VIAL SQ SCH ×2 (09:50→21:50)
[2017-01-29] MEDS: SERTRALINE HCL 50 MG TABLET (FP) PO SCH (09:50)
[2017-01-29] MEDS ORDERED: PATIENT'S OWN MEDICATION (NON-FORMULARY) (Sertraline Hcl [Zoloft -] 100 MG) PO SCH (10:00)
[2017-01-29 12:04] LABS: CHOLESTEROL 188 mg/dL (50-200); LDL CHOLESTEROL (ONLY SJRH) 114 mg/dL (5-100)
--- NOTE | 2017-01-29 12:35 | PN ---
Progress Note, Physician History of Present Illness: Resting in bed. states left knee feels a little better today. - Current Medication List Current Medications: Active Medications Aspirin (Asa -) 81 mg PO DAILY [facility] Last Admin: 01/29/17 09:50 Dose: 81 mg Atorvastatin Calcium (Lipitor -) 40 mg PO HS [facility] Last Admin: 01/28/17 21:00 Dose: 40 mg Cyclobenzaprine HCl (Flexeril -) 5 mg PO BID [facility] Last Admin: 01/29/17 09:48 Dose: 5 mg Divalproex Sodium (Depakote -) 750 mg PO HS [facility] Last Admin: 01/28/17 21:00 Dose: 750 mg Fluphenazine HCl (Prolixin -) 1 mg PO BID [facility] Last Admin: 01/29/17 09:50 Dose: 1 mg Heparin Sodium (Porcine) (Heparin -) 5,000 unit SQ BID [facility] Last Admin: 01/29/17 09:50 Dose: 5,000 unit Sertraline HCl (Zoloft -) 100 mg PO DAILY [facility] Last Admin: 01/29/17 09:50 Dose: 100 mg - Objective Vital Signs: Vital Signs Temperature 98.3 F 01/29/17 08:48 Pulse Rate 94 H 01/29/17 08:48 Respiratory Rate 18 01/29/17 08:48 Blood Pressure 123/85 01/29/17 08:48 O2 Sat by Pulse Oximetry (%) 97 01/29/17 09:00 Constitutional: Yes: Well Nourished, No Distress, Calm Musculoskeletal: Yes: Other (Left knee: No open wounds. Very mild erthema anteriorly over the patella. There is focal tenderness in this area. No joint line tenderness. ROM 0-70 deg. Calf soft, NT. Compartments soft. NVID.) Labs: CBC, BMP 01/29/17 06:05 01/29/17 06:05 INR, PTT INR 1.10 (0.82-1.09) 01/28/17 13:22 Assessment/Plan Left knee cellulitis -Recommend Oral ABX -No indication for surgical intervention or aspiration of knee -WBAT -F/u as outpatient
--- NOTE | 2017-01-29 13:04 | EKG ---
Test Reason : Blood Pressure : / mmHG Vent. Rate : 109 BPM Atrial Rate : 109 BPM P-R Int : 150 ms QRS Dur : 090 ms QT Int : 344 ms P-R-T Axes : 033 046 000 degrees QTc Int : 463 ms SINUS TACHYCARDIA CANNOT RULE OUT ANTEROSEPTAL INFARCT (CITED ON OR BEFORE 20-JUL-2011) ABNORMAL ECG WHEN COMPARED WITH ECG OF 24-JUL-2016 17:27, PREMATURE ATRIAL COMPLEXES ARE NO LONGER PRESENT QUESTIONABLE CHANGE IN INITIAL FORCES OF ANTEROSEPTAL LEADS T WAVE INVERSION NOW EVIDENT IN INFERIOR LEADS REPEAT EKG IF CLINICALLY INDICATED Confirmed by ALEXANDRA MIMS MD ([id number]) on 01/29/2017 1:03:58 PM Referred By: Confirmed By:ALEXANDRA MIMS MD
--- NOTE | 2017-01-29 13:09 | HP ---
Admitting History and Physical - Primary Care Physician PCP: Yoko Grove - Admission Chief Complaint: Right knee pain, nausea, vomiting History of Present Illness: Patient is a 66 year old male with a significant past medical history of left lower extremity Olman Schlatter (remission), borderline diabetes, borderline hyperlipidemia, coronary disease, cardiac stent (1 year ago) (unsure), recurring left knee swelling who presents to the ED with complains of diffuse abdominal pain beginning 4 days prior to arrival. Patient reports 4 days ago he underwent multiple episodes of vomiting secondary to nausea. He also reported multiple episodes of diarrhea x 1 day. He reports intermediary left knee pain beginning yesterday. He reports slight erythema and edema of the left knee that is intensified with flexion and extension. Upon asking if he fell, he is not sure, states he could have. History Source: Patient Limitations to Obtaining History: Poor Historian, Other (unreliable historian, gives different answer to same questions) - Past Medical History Cardiovascular: Yes: Hyperlipdemia Psych: Yes: Bipolar - Smoking History Smoking history: Former smoker Have you smoked in the past 12 months: No Aproximately how many cigarettes per day: 0 If you are a former smoker, when did you quit?: 2016 - Alcohol/Substance Use Hx Alcohol Use: No Home Medications - Allergies Allergies/Adverse Reactions: Allergies Allergy/AdvReac Type Severity Reaction Status Date / Time No Known Allergies Allergy Verified 07/24/16 14:40 - Home Medications Home Medications: Ambulatory Orders Aspirin [ASA -] 81 mg PO DAILY 07/19/16 Atorvastatin Ca [Lipitor] 40 mg PO HS 07/19/16 Divalproex Sodium [Depakote] 750 mg PO HS 07/19/16 Fluphenazine HCl 1 mg PO BID 07/19/16 Sertraline HCl [Zoloft -] 100 mg PO DAILY 07/19/16 Cyclobenzaprine HCl 5 mg PO BID 07/24/16 Fluphenazine Decanoate 25 mg IM ASDIR 07/24/16 Amox-Tr/K Cl [Augmentin 875-125mg Tablet -] 1 tab PO BID@0800,1730 tablet 07/26 Clindamycin [Cleocin -] 300 mg PO Q6HPO capsule 07/26/16 Review of Systems - Review of Systems Constitutional: reports: No Symptoms Eyes: reports: No Symptoms HENT: reports: No Symptoms Neck: reports: No Symptoms Cardiovascular: reports: No Symptoms Respiratory: reports: No Symptoms Gastrointestinal: reports: Abdominal Pain, Diarrhea, Nausea, Vomiting Genitourinary: reports: No Symptoms Breasts: reports: No Symptoms Reported Musculoskeletal: reports: Joint Pain (left knee), Joint Swelling (left knee) Integumentary: reports: No Symptoms Neurological: reports: No Symptoms Endocrine: reports: No Symptoms Hematology/Lymphatic: reports: No Symptoms Psychiatric: reports: No Symptoms Physical Examination Vital Signs: Vital Signs Temperature 98.3 F 01/29/17 08:48 Pulse Rate 94 H 01/29/17 08:48 Respiratory Rate 18 01/29/17 08:48 Blood Pressure 123/85 01/29/17 08:48 O2 Sat by Pulse Oximetry (%) 97 01/29/17 09:00 Constitutional: Yes: Well Nourished, No Distress, Calm Cardiovascular: Yes: Regular Rate and Rhythm Respiratory: Yes: Regular Gastrointestinal: Yes: Hyperactive Bowel Sounds, Tenderness (RLQ) Musculoskeletal: Yes: Joint Swelling (left knee) Extremities: Yes: Erythema (Left knee) Edema: Yes (left knee) Peripheral Pulses WNL: Yes Neurological: Yes: Alert Psychiatric: Yes: Alert Labs: CBC, BMP 01/29/17 06:05 01/29/17 06:05 Problem List - Problems (1) Abdominal fluid collection Assessment/Plan: -CT abd reviewed, RLQ fluid collection -seen by GI surgery, no surgical intervention needed -Seen by GI Code(s): R18.8 - OTHER ASCITES (2) Right groin pain Assessment/Plan: -U/S right scrotal/groin Code(s): R10.31 - RIGHT LOWER QUADRANT PAIN (3) Cellulitis of knee, left Assessment/Plan: -oral ABX, seen by ortho -ice -elevation -pain management Code(s): L03.116 - CELLULITIS OF LEFT LOWER LIMB (4) Diarrhea Assessment/Plan: -seen by GI -no more diarrhea -start probiotics Code(s): R19.7 - DIARRHEA, UNSPECIFIED (5) Abdominal pain Assessment/Plan: -RLQ -from past 2-3 weeks. -CT abd reviewed - u/s right groin and scrotum, if normal, would discharge in am with outpatient f/u with GI Code(s): R10.9 - UNSPECIFIED ABDOMINAL PAIN Assessment/Plan see problem list
--- NOTE | 2017-01-29 13:30 | CON.GI ---
Consult Consult Specialty:: Gastroenterology for Dr Lr Referred by:: Dr. Grove Reason for Consultation:: Fluid collection on CT scan - History of Present Illness Chief Complaint: left knee pain History of Present Illness: 66M is admitted for left knee cellulitis. CT of the abdomen reveals a fluid collection in the RLQ. He is s/p appendectomy. He did have a RIH repair. He is not consistent with his GI complaints. He denies abdominal pain but admits to a right inguinal tenderness. He had vomiting yesterday but tells me that he has been eating well. He has chronic constipation. He tells me that he has had an EGD and a colonoscopy several years ago and that they were normal. - History Source History Provided By: Patient Limitations to Obtaining History: Poor Historian - Past Medical History Cardio/Vascular: Yes: CAD (coronary stent at [facility] ), Hyperlipdemia Gastrointestinal: Yes: Constipation Hepatobiliary: Yes: Other (fatty liver) Psych: Yes: Bipolar Endocrine: Yes: Diabetes Mellitus (prediabetic) - Past Surgical History Past Surgical History: Yes: Appendectomy, Colonoscopy, Hernia Repair (right inguinal ), Stent (coronary), Upper Endoscopy - Alcohol/Substance Use Hx Alcohol Use: No History of Substance Use: reports: None - Smoking History Smoking history: Former smoker Have you smoked in the past 12 months: No Aproximately how many cigarettes per day: 0 If you are a former smoker, when did you quit?: 2015 - Social History Usual Living Arrangement: Alone ADL: Independent 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 Place of : [facility] Home Medications - Allergies Allergies/Adverse Reactions: Allergies Allergy/AdvReac Type Severity Reaction Status Date / Time No Known Allergies Allergy Verified 07/24/16 14:40 - Home Medications Home Medications: Ambulatory Orders Aspirin [ASA -] 81 mg PO DAILY 07/19/16 Atorvastatin Ca [Lipitor] 40 mg PO HS 07/19/16 Divalproex Sodium [Depakote] 750 mg PO HS 07/19/16 Fluphenazine HCl 1 mg PO BID 07/19/16 Sertraline HCl [Zoloft -] 100 mg PO DAILY 07/19/16 Cyclobenzaprine HCl 5 mg PO BID 07/24/16 Fluphenazine Decanoate 25 mg IM ASDIR 07/24/16 Amox-Tr/K Cl [Augmentin 875-125mg Tablet -] 1 tab PO BID@0800,1730 tablet 07/26 Clindamycin [Cleocin -] 300 mg PO Q6HPO capsule 07/26/16 Family Disease History - Family Disease History Family Disease History: Heart Disease: Father ( [place] in his 60s), Other: Mother (lived into her 80s) Review of Systems - Review of Systems Constitutional: reports: No Symptoms Eyes: reports: No Symptoms HENT: reports: No Symptoms Neck: reports: No Symptoms Cardiovascular: reports: No Symptoms Respiratory: reports: No Symptoms Gastrointestinal: reports: Constipation, Vomiting Genitourinary: reports: Frequency Musculoskeletal: reports: Joint Pain Physical Exam-GI Vital Signs: Vital Signs Temperature 98.3 F 01/29/17 08:48 Pulse Rate 94 H 01/29/17 08:48 Respiratory Rate 18 01/29/17 08:48 Blood Pressure 123/85 01/29/17 08:48 O2 Sat by Pulse Oximetry (%) 97 01/29/17 09:00 CBC,CMP WBC 8.7 K/mm3 (4.0-10.0) 01/29/17 06:05 RBC 3.97 M/mm3 (4.00-5.60) L 01/29/17 06:05 Hgb 12.2 GM/dL (11.7-16.9) 01/29/17 06:05 Hct 35.4 % (35.4-49) 01/29/17 06:05 MCV 89.1 fl (80-96) 01/29/17 06:05 MCH 30.7 pg (25.7-33.7) 01/29/17 06:05 MCHC 34.5 g/dl (32.0-35.9) 01/29/17 06:05 RDW 14.7 % (11.9-15.9) 01/29/17 06:05 Plt Count 163 K/MM3 (134-434) 01/29/17 06:05 MPV 9.7 fl (7.5-11.1) 01/29/17 06:05 Neutrophils % 62.1 % (42.8-82.8) 01/29/17 06:05 Lymphocytes % 24.3 % (8-40) D 01/29/17 06:05 Monocytes % 9.3 % (3.8-10.2) 01/29/17 06:05 Eosinophils % 4.0 % (0-4.5) 01/29/17 06:05 Basophils % 0.3 % (0-2.0) 01/29/17 06:05 ESR 29 mm/hr (0-20) H 01/28/17 13:22 Sodium 143 mmol/L (136-145) 01/29/17 06:05 Potassium 3.6 mmol/L (3.5-5.1) 01/29/17 06:05 Chloride 110 mmol/L (98-107) H 01/29/17 06:05 Carbon Dioxide 22 mmol/L (21-32) 01/29/17 06:05 Anion Gap 11 (8-16) 01/29/17 06:05 BUN 13 mg/dL (7-18) 01/29/17 06:05 Creatinine 1.0 mg/dL (0.7-1.3) 01/29/17 06:05 Creat Clearance w eGFR > 60 (>60) 01/29/17 06:05 Random Glucose 89 mg/dL (74-106) 01/29/17 06:05 Hemoglobin A1c % 6.1 % (4.8-6.0) H D 01/29/17 11:45 Lactic Acid 0.6 mmol/L (0.4-2.0) 01/28/17 13:22 Uric Acid 8.9 mg/dL (2.6-7.2) H D 01/28/17 13:22 Calcium 8.7 mg/dL (8.5-10.1) 01/29/17 06:05 Total Bilirubin 1.1 mg/dL (0.2-1.0) H D 01/29/17 06:05 AST 5 U/L (15-37) L D 01/29/17 06:05 ALT 16 U/L (12-78) 01/29/17 06:05 Alkaline Phosphatase 96 U/L (45-117) 01/29/17 06:05 Creatine Kinase 47 IU/L (39-308) 01/28/17 13:22 Troponin I < 0.02 ng/ml (0.00-0.05) 01/28/17 13:22 C-Reactive Protein 3.5 MG/DL (0.00-0.3) H 01/28/17 13:22 Total Protein 6.6 g/dl (6.4-8.2) 01/29/17 06:05 Albumin 3.0 g/dl (3.4-5.0) L 01/29/17 06:05 Triglycerides 212 mg/dL (35-160) H D 01/29/17 06:05 Cholesterol 188 mg/dL (50-200) D 01/29/17 06:05 Total LDL Cholesterol 114 mg/dL (5-100) H D 01/29/17 06:05 HDL Cholesterol 38 mg/dL (40-60) L 01/29/17 06:05 Lipase 129 U/L (73-393) 01/28/17 13:22 Current Medications Generic Name Dose Route Start Last Admin Trade Name Lupilloq PRN Reason Stop Dose Admin Aspirin 81 mg 01/29/17 10:00 01/29/17 09:50 Asa - PO 81 mg DAILY ATUL Administration Atorvastatin Calcium 40 mg 01/28/17 22:00 01/28/17 21:00 Lipitor - PO 40 mg HS ATUL Administration Cyclobenzaprine HCl 5 mg 01/28/17 22:00 01/29/17 09:48 Flexeril - PO 5 mg BID ATUL Administration Divalproex Sodium 750 mg 01/28/17 22:00 01/28/17 21:00 Depakote - PO 750 mg HS ATUL Administration Fluphenazine HCl 1 mg 01/28/17 22:00 01/29/17 09:50 Prolixin - PO 1 mg BID ATUL Administration Heparin Sodium (Porcine) 5,000 unit 01/28/17 22:00 01/29/17 09:50 Heparin - SQ 5,000 unit BID ATUL Administration Lactobacillus Acidophilus 1 tab 01/30/17 10:00 Bacid - PO DAILY ATUL Sertraline HCl 100 mg 01/29/17 10:00 01/29/17 09:50 Zoloft - PO 100 mg DAILY ATUL Administration Trimethoprim/Sulfamethoxazole 1 each 01/29/17 13:00 Bactrim Ds - PO 02/05/17 12:59 BID ATUL Constitutional: Yes: Calm Eyes: Yes: Conjunctiva Clear HENT: Yes: Normocephalic Neck: Yes: Supple Cardiovascular: Yes: Regular Rate and Rhythm Respiratory: Yes: CTA Bilaterally Gastrointestinal Inspection: Yes: Scars (healed vertical suprpaubic and RIH incisions) ...Auscultate: Yes: Normoactive Bowel Sounds ...Palpate: Yes: Mass (right inguinal/scrotal slight tender, firm tubular structure, no fluctuance), Other (no hernia recurrence) ...Rectal Exam: Yes: Guaiac Negative, Sphincter Tone Normal (2+ prostate) Extremities: Yes: Erythema (left patellar) Edema: No Labs: CBC, BMP 01/29/17 06:05 01/29/17 06:05 INR, PTT INR 1.10 (0.82-1.09) 01/28/17 13:22 Imaging - Results Cat Scan: Report Reviewed (Iker Acevedo Name: EDIL[facility] DEPARTMENT OF RADIOLOGY Phys: Channing Martinez MD : 1950 Age: 66 Sex: M [facility] Acct: [id number] Loc: [address] Exam Date: Status: [place] [address] Unit Number: [id number] EXAM#: TYPE/EXAM: RESULT: [id number] CT/ ABDOMEN PELVIS CT WITH CONTR EXAM: CT abdomen/pelvis with IV contrast. INDICATION: Right lower quadrant abdominal pain. Nausea. Emesis. TECHNIQUE: Contrast enhanced CT of the abdomen and pelvis without oral contrast , following intravenous administration of 91 mL of Omnipaque 350 contrast with coronal and sagittal reconstructions. COMPARISON: None. FINDINGS: There is subsegmental atelectasis and/or scarring in the inferior aspect of the right middle lobe. The heart is not enlarged. There is severe three-vessel coronary artery calcific atherosclerosis and /or stones. The liver is normal in size and contour. There is hydropic distention of the gallbladder, which compresses and flattens the inferior vena cava. The spleen is normal in size with no focal lesions. There is fatty resolution of the pancreatic head. The pancreas is otherwise unremarkable. There is indeterminant nodular thickening of the left adrenal gland, measuring 1.1 x 0.6 cm. There is no mass lesion in the right adrenal gland. The kidneys enhance symmetrically without hydronephrosis. There are numerous punctate hypodense cortical lesions throughout both kidneys, located mostly in the periphery. These are too small to characterize but may represent microcysts. Microcysts have been described in the setting of lithium-induced nephropathy. Evaluation of the bowel is somewhat limited without oral contrast. The stomach is underdistended, which limits evaluation. There are no dilated loops of large or small bowel to suggest obstruction. There are diverticula scattered throughout the colon, most prominent in the sigmoid colon, with no evidence of acute diverticulitis. There is no free intraperitoneal air. There is no ascites or drainable fluid collection in the abdomen or pelvis. The appendix is not visualized, however, there are no secondary signs of acute appendicitis in the right lower quadrant. There is no free intraperitoneal air or ascites. There is loculated fluid directly overlying the right femoral artery and vein, measuring approximately 3.0 x 1.8 cm, is nonspecific but may represent a surgical serosanguineous collection. Please correlate for history of prior right inguinal hernia repair. The abdominal aorta is of normal caliber. There is moderate calcific atherosclerosis along the abdominal aorta, thickening of the major visceral branch vessels, common iliac and internal iliac arteries. There are no pathologically enlarged retroperitoneal lymph nodes by size criteria. There is mild thickening of the urinary bladder wall , which may be secondary to underdistention. The prostate gland is nonenlarged. There are no pathologically enlarged pelvic sidewall lymph nodes by size criteria. Incidental note is made of asymmetric, prominent fat deposition within the left cyanotic cord. No acute fracture in the visualized osseous structures. There is levoconvex curvature of lumbar spine. There is severe intervertebral disc space narrowing at L5-S1. There is trace degenerative retrolisthesis of L2 on L3. IMPRESSION: 1. No evidence of intestinal obstruction, acute diverticulitis or acute appendicitis. Appendix is not visualized. 2. Hydropic distention of the gallbladder. No calcified gallstones or biliary ductal dilatation. Please correlate for history of prolonged fasting and correlate with right upper quadrant sonogram. 3. Loculated right lower quadrant fluid measuring 3.0 x 1.8 cm is nonspecific but may represent a postsurgical serosanguineous collection. Please correlate for history of prior right inguinal hernia repair. 4. Apparent mild thickening of the urinary bladder is probably due to underdistention. Please correlate with urinalysis to exclude cystitis. 5. Indeterminant left adrenal gland nodule measuring 1.1 x 0.6 cm, may represent an adenoma. Other lesions are not excluded. Please correlate with biochemical markers and comparing with prior imaging abdomen, available. Complete characterization of this lesion requires multiphase contrast- enhanced CT or MRI of the adrenal glands. 6. Numerous punctate hypodense lesions within both kidneys are too small to characterize, but most likely represent microcysts. Although not pathognomonic, it is worth noting that microcysts may be seen with lithium-induced nephropathy in the appropriate clinical setting. Reported By: Becki Nava MD 01/28/17 1618 Channing Martinez Technologist: Ricky Ballard Transcribed Date/Time: 01/28/171617 Front Edger: Becki Nava MD Printed Date/Time: [ rep prt dt last] [ rep prt tm last] By: [ rep prt user last] Signed by: Becki Nava Signed on: 28-Jan-2017 16:19) Assessment/Plan I agree with the radiologist that the collection looks like a posthernia repair seroma. Similarly I believe the palpable tubular structure is a postsurgical artifact ? migrated mesh. I await the pelvic sonogram report and urology opinion. I will order a Hida scan given his GB hydrops and recent vomiting. He may need an MRCP is this is nondiagnostic. I have discussed the case with Marcia Galicia NP.
[2017-01-29] MEDS: SULFAMETHOXAZOLE/TRIMETHOPRIM 800MG/160MG D.S. TABLET PO SCH ×2 (14:27→21:48)
[2017-01-29] MEDS: ATORVASTATIN CA 40 MG TABLET (FP) PO SCH (21:48)
[2017-01-29] MEDS: DIVALPROEX SODIUM 250 MG TABLET E.C. (FP) PO SCH (21:49)
--- NOTE | 2017-01-29 22:43 | PN ---
Progress Note (short form) - Note Progress Note: Vascular Surgery pt seen and examined. Doing well. CT showed a fluid loculation over right femoral vessels. Pt examined. Pt has good femoral pulses. No areas of swelling in right groin. Pt also has no pain in right groin at the moment. Does have a scar from prior appendectomy there. No need for any vascular intervention at this time. Saud george DO
[2017-01-30 07:08] LABS: FIBROSURE ASH COMMENT SEE FILE COPY
[2017-01-30 08:09] LABS: ALBUMIN 3.1 g/dl (3.4-5.0); BILIRUBIN,DIRECT 0.2 mg/dL (0.0-0.2); BILIRUBIN,TOTAL 0.7 mg/dL (0.2-1.0); C-REACTIVE PROTEIN 3.2 MG/DL (0.00-0.3); TOT PROT 6.6 g/dl (6.4-8.2)
--- NOTE | 2017-01-30 09:27 | PN ---
Progress Note (short form) - Note Progress Note: No new events Denies abdominal pain On regular diet Vital Signs Period Temp Pulse Resp BP Sys/Reed Pulse Ox Last 24 Hr 97.4 F-98.4 F 86-89 16-18 104-139/62-89 97 Abd soft, NT Continue diet OOB Problem List - Problems (1) Abdominal fluid collection Code(s): R18.8 - OTHER ASCITES (2) Right groin pain Code(s): R10.31 - RIGHT LOWER QUADRANT PAIN
[2017-01-30] MEDS: SERTRALINE HCL 50 MG TABLET (FP) PO SCH (11:18)
[2017-01-30] MEDS: SULFAMETHOXAZOLE/TRIMETHOPRIM 800MG/160MG D.S. TABLET PO SCH ×2 (11:18→22:08)
[2017-01-30] MEDS: LACTOBACILLUS ACIDOPHILUS 1 EACH TAB (FP) PO SCH (11:18)
[2017-01-30] MEDS: CYCLOBENZAPRINE HCL 10 MG TABLET (FP) PO SCH ×2 (11:19→22:09)
[2017-01-30] MEDS: ASPIRIN 81 MG CHEWABLE TABLETS PO SCH (11:19)
[2017-01-30] MEDS: HEPARIN NA (PORCINE) 5,000 UNITS/ML 1ML VIAL SQ SCH ×2 (11:19→22:08)
--- NOTE | 2017-01-30 12:19 | PN ---
GI Progress Note Subjective: GI ( covering Dr Lr) : No GI complaints. Scrotal sonogram unrevealing. The palpable tubular structure is inguinal and not scrotal in location however. He does not feel it until palpated. - Objective Vital Signs: Vital Signs Temperature 99.2 F 01/30/17 11:17 Pulse Rate 95 H 01/30/17 11:17 Respiratory Rate 18 01/30/17 11:17 Blood Pressure 135/83 01/30/17 11:17 O2 Sat by Pulse Oximetry (%) 97 01/29/17 21:00 Laboratory Tests 01/30/17 06:15 Total Bilirubin 0.7 D Direct Bilirubin 0.2 AST 7 L D ALT 17 Alkaline Phosphatase 105 C-Reactive Protein 3.2 H D Albumin 3.1 L Constitutional: Calm ...Auscultate: Yes: Normoactive Bowel Sounds ...Palpate: Yes: Soft, Other (nontender right inguinal tubular structure) Labs: CBC, BMP 01/29/17 06:05 01/29/17 06:05 INR, PTT INR 1.10 (0.82-1.09) 01/28/17 13:22 Assessment/Plan Continue to suspect that palpable and CT findings reflect surgical artifacts: unresorbed seroma and migrated scrolled up mesh. Dr. Fontana's and Dr Hammond's opinions appreciated. Await opinion.
--- NOTE | 2017-01-30 13:11 | PN ---
Progress Note, Physician Chief Complaint: left knee pain/swelling, nausea/vomiting History of Present Illness: NAD, in bed, no complains, seen by GI, GI, Vascular. Awaiting Urology eval - Current Medication List Current Medications: Active Medications Aspirin (Asa -) 81 mg PO DAILY ON LICENSE OF [facility] Last Admin: 01/30/17 11:19 Dose: 81 mg Atorvastatin Calcium (Lipitor -) 40 mg PO [facility] Last Admin: 01/29/17 21:48 Dose: 40 mg Cyclobenzaprine HCl (Flexeril -) 5 mg PO BID ON LICENSE OF [facility] Last Admin: 01/30/17 11:19 Dose: 5 mg Divalproex Sodium (Depakote -) 750 mg PO [facility] Last Admin: 01/29/17 21:49 Dose: 750 mg Fluphenazine HCl (Prolixin -) 1 mg PO BID ON LICENSE OF [facility] Last Admin: 01/30/17 11:20 Dose: 1 mg Heparin Sodium (Porcine) (Heparin -) 5,000 unit SQ BID ON LICENSE OF [facility] Last Admin: 01/30/17 11:19 Dose: 5,000 unit Lactobacillus Acidophilus (Bacid -) 1 tab PO DAILY ON LICENSE OF [facility] Last Admin: 01/30/17 11:18 Dose: 1 tab Sertraline HCl (Zoloft -) 100 mg PO DAILY ON LICENSE OF [facility] Last Admin: 01/30/17 11:18 Dose: 100 mg Trimethoprim/Sulfamethoxazole (Bactrim Ds -) 1 each PO BID ON LICENSE OF [facility] Stop: 02/05/17 12:59 Last Admin: 01/30/17 11:18 Dose: 1 each - Objective Vital Signs: Vital Signs Temperature 99.2 F 01/30/17 11:17 Pulse Rate 95 H 01/30/17 11:17 Respiratory Rate 18 01/30/17 11:17 Blood Pressure 135/83 01/30/17 11:17 O2 Sat by Pulse Oximetry (%) 97 01/30/17 09:00 Constitutional: Yes: Well Nourished, No Distress, Calm Cardiovascular: Yes: Regular Rate and Rhythm Respiratory: Yes: Regular Gastrointestinal: Yes: Normal Bowel Sounds Musculoskeletal: Yes: Joint Swelling (left knee-improved.) Extremities: Yes: WNL Edema: No Peripheral Pulses WNL: Yes Neurological: Yes: Alert Psychiatric: Yes: Alert Labs: CBC, BMP 01/29/17 06:05 01/29/17 06:05 INR, PTT INR 1.10 (0.82-1.09) 01/28/17 13:22 Problem List - Problems (1) Abdominal fluid collection Assessment/Plan: -CT abd reviewed, RLQ fluid collection -seen by GI surgery, no surgical intervention needed -Seen by GI Code(s): R18.8 - OTHER ASCITES (2) Right groin pain Assessment/Plan: -U/S right scrotal/groin reviewed -awaiting urology eval Code(s): R10.31 - RIGHT LOWER QUADRANT PAIN (3) Cellulitis of knee, left Assessment/Plan: -oral ABX, seen by ortho -ice -elevation -pain management Code(s): L03.116 - CELLULITIS OF LEFT LOWER LIMB (4) Diarrhea Assessment/Plan: -seen by GI -no more diarrhea -start probiotics Code(s): R19.7 - DIARRHEA, UNSPECIFIED (5) Abdominal pain Assessment/Plan: -RLQ -from past 2-3 weeks. -CT abd reviewed - u/s right groin and scrotum reviewed Code(s): R10.9 - UNSPECIFIED ABDOMINAL PAIN Assessment/Plan see problem list
--- NOTE | 2017-01-30 13:31 | PN ---
Progress Note, Physician History of Present Illness: Resting in bed. Knee feels a little better today - Current Medication List Current Medications: Active Medications Aspirin (Asa -) 81 mg PO DAILY [facility] Last Admin: 01/30/17 11:19 Dose: 81 mg Atorvastatin Calcium (Lipitor -) 40 mg PO HS [facility] Last Admin: 01/29/17 21:48 Dose: 40 mg Cyclobenzaprine HCl (Flexeril -) 5 mg PO BID [facility] Last Admin: 01/30/17 11:19 Dose: 5 mg Divalproex Sodium (Depakote -) 750 mg PO HS [facility] Last Admin: 01/29/17 21:49 Dose: 750 mg Fluphenazine HCl (Prolixin -) 1 mg PO BID [facility] Last Admin: 01/30/17 11:20 Dose: 1 mg Heparin Sodium (Porcine) (Heparin -) 5,000 unit SQ BID [facility] Last Admin: 01/30/17 11:19 Dose: 5,000 unit Lactobacillus Acidophilus (Bacid -) 1 tab PO DAILY [facility] Last Admin: 01/30/17 11:18 Dose: 1 tab Sertraline HCl (Zoloft -) 100 mg PO DAILY [facility] Last Admin: 01/30/17 11:18 Dose: 100 mg Trimethoprim/Sulfamethoxazole (Bactrim Ds -) 1 each PO BID [facility] Stop: 02/05/17 12:59 Last Admin: 01/30/17 11:18 Dose: 1 each - Objective Vital Signs: Vital Signs Temperature 99.2 F 01/30/17 11:17 Pulse Rate 95 H 01/30/17 11:17 Respiratory Rate 18 01/30/17 11:17 Blood Pressure 135/83 01/30/17 11:17 O2 Sat by Pulse Oximetry (%) 97 01/30/17 09:00 Constitutional: Yes: Well Nourished, No Distress, Calm Musculoskeletal: Yes: Other (Left knee: mild erythema anteriorly along the patella. Mild warmth here. Mild tenderness along the patella. No joint space tenderness. ROM of knee 0-90 today. NVID. No calf tenderness. Negative nai's sign) Labs: CBC, BMP 01/29/17 06:05 01/29/17 06:05 INR, PTT INR 1.10 (0.82-1.09) 01/28/17 13:22 Assessment/Plan Left knee cellulits -No indication for surgical intervention/aspiration -Continue ABX -F/u as outpatient -Please reconsult if needed
[2017-01-30] MEDS: DIVALPROEX SODIUM 250 MG TABLET E.C. (FP) PO SCH (22:10)
[2017-01-30] MEDS: ATORVASTATIN CA 40 MG TABLET (FP) PO SCH (22:11)
[2017-01-31] MEDS ORDERED: PT OWN MED DRAWER 7, Y5N ONE ×2 (09:59→20:15)
[2017-01-31] MEDS: HEPARIN NA (PORCINE) 5,000 UNITS/ML 1ML VIAL SQ SCH ×2 (10:03→21:43)
[2017-01-31] MEDS: SERTRALINE HCL 50 MG TABLET (FP) PO SCH (10:03)
[2017-01-31] MEDS: SULFAMETHOXAZOLE/TRIMETHOPRIM 800MG/160MG D.S. TABLET PO SCH ×2 (10:03→21:38)
[2017-01-31] MEDS: ASPIRIN 81 MG CHEWABLE TABLETS PO SCH (10:03)
[2017-01-31] MEDS: LACTOBACILLUS ACIDOPHILUS 1 EACH TAB (FP) PO SCH (10:03)
[2017-01-31] MEDS: CYCLOBENZAPRINE HCL 10 MG TABLET (FP) PO SCH ×2 (10:03→21:38)
--- NOTE | 2017-01-31 14:42 | PN ---
GI Progress Note Subjective: GI NOte ( covering Dr Lr) : Denies abdominal pain. Knee is less tender. - Objective Vital Signs: Vital Signs Temperature 98 F 01/31/17 05:56 Pulse Rate 76 01/31/17 05:56 Respiratory Rate 18 01/31/17 05:56 Blood Pressure 128/82 01/31/17 05:56 O2 Sat by Pulse Oximetry (%) 97 01/30/17 21:00 Laboratory Tests 01/29/17 01/30/17 06:05 06:15 WBC 8.7 Total Bilirubin 0.7 D Direct Bilirubin 0.2 AST 7 L D ALT 17 Alkaline Phosphatase 105 C-Reactive Protein 3.2 H D Constitutional: Calm ...Auscultate: Yes: Normoactive Bowel Sounds ...Palpate: Yes: Soft, Other (minimal tenderness over palpable inguinal tubule) Labs: CBC, BMP 01/29/17 06:05 01/29/17 06:05 INR, PTT INR 1.10 (0.82-1.09) 01/28/17 13:22 Assessment/Plan Continue to suspect that palpable and CT findings reflect surgical artifacts: unresorbed seroma and migrated scrolled up mesh. Await opinion. Dr. Lr will return tomorrow.
--- NOTE | 2017-01-31 20:12 | PN ---
Progress Note, Physician Chief Complaint: left knee pain/swelling, nausea/vomiting History of Present Illness: NAD, in bed, no complains, seen by GI, GI, Vascular. Awaiting Urology eval - Current Medication List Current Medications: Active Medications Aspirin (Asa -) 81 mg PO DAILY [facility] Last Admin: 01/31/17 10:03 Dose: 81 mg Atorvastatin Calcium (Lipitor -) 40 mg PO [facility] Last Admin: 01/30/17 22:11 Dose: 40 mg Cyclobenzaprine HCl (Flexeril -) 5 mg PO BID [facility] Last Admin: 01/31/17 10:03 Dose: 5 mg Divalproex Sodium (Depakote -) 750 mg PO [facility] Last Admin: 01/30/17 22:10 Dose: 750 mg Fluphenazine HCl (Prolixin -) 1 mg PO BID [facility] Last Admin: 01/31/17 10:03 Dose: 1 mg Heparin Sodium (Porcine) (Heparin -) 5,000 unit SQ BID [facility] Last Admin: 01/31/17 10:03 Dose: 5,000 unit Lactobacillus Acidophilus (Bacid -) 1 tab PO DAILY [facility] Last Admin: 01/31/17 10:03 Dose: 1 tab Sertraline HCl (Zoloft -) 100 mg PO DAILY [facility] Last Admin: 01/31/17 10:03 Dose: 100 mg Trimethoprim/Sulfamethoxazole (Bactrim Ds -) 1 each PO BID [facility] Stop: 02/05/17 12:59 Last Admin: 01/31/17 10:03 Dose: 1 each - Objective Vital Signs: Vital Signs Temperature 97.4 F L 01/31/17 19:37 Pulse Rate 93 H 01/31/17 19:37 Respiratory Rate 18 01/31/17 19:37 Blood Pressure 121/74 01/31/17 19:37 O2 Sat by Pulse Oximetry (%) 97 01/31/17 09:00 Constitutional: Yes: Well Nourished, No Distress, Calm Cardiovascular: Yes: Regular Rate and Rhythm Respiratory: Yes: Regular Musculoskeletal: Yes: Joint Swelling (left knee) Extremities: Yes: WNL Edema: Yes (left knee) Peripheral Pulses WNL: No Neurological: Yes: Alert, Oriented Psychiatric: Yes: Alert Labs: CBC, BMP 01/29/17 06:05 01/29/17 06:05 INR, PTT INR 1.10 (0.82-1.09) 01/28/17 13:22 Problem List - Problems (1) Abdominal fluid collection Assessment/Plan: -CT abd reviewed, RLQ fluid collection -seen by GI surgery, no surgical intervention needed -Seen by GI Code(s): R18.8 - OTHER ASCITES (2) Right groin pain Assessment/Plan: -U/S right scrotal/groin reviewed -awaiting urology eval Code(s): R10.31 - RIGHT LOWER QUADRANT PAIN (3) Cellulitis of knee, left Assessment/Plan: -oral ABX, seen by ortho -ice -elevation -pain management Code(s): L03.116 - CELLULITIS OF LEFT LOWER LIMB (4) Diarrhea Assessment/Plan: -seen by GI -no more diarrhea -start probiotics Code(s): R19.7 - DIARRHEA, UNSPECIFIED (5) Abdominal pain Assessment/Plan: -resolved -from past 2-3 weeks. -CT abd reviewed - u/s right groin and scrotum reviewed Code(s): R10.9 - UNSPECIFIED ABDOMINAL PAIN Assessment/Plan see problem list -discharge back to [facility] if cleared by Urology
[2017-01-31] MEDS: DIVALPROEX SODIUM 250 MG TABLET E.C. (FP) PO SCH (21:39)
[2017-01-31] MEDS: ATORVASTATIN CA 40 MG TABLET (FP) PO SCH (21:39)
[2017-02-01] MEDS ORDERED: TAMSULOSIN HCL 0.4 MG CAP.ER.24H (FP) PO ONE (07:46)
--- NOTE | 2017-02-01 07:47 | CON.GU ---
Consult Consult Specialty:: urology Reason for Consultation:: right groin pain - History of Present Illness Chief Complaint: right groin pain History of Present Illness: Patient with history of right scrotal pain. Denies trauma, swelling, fever, chills. Patient has mild to moderate frequency and urgency with nocturia x3. Flow is slow. Denies history of surgery, urinary retention, or having a previous urologic evaluation. - History Source History Provided By: Patient Limitations to Obtaining History: No Limitations - Past Medical History Cardio/Vascular: Yes: CAD (coronary stent at [facility] ), Hyperlipdemia Gastrointestinal: Yes: Constipation Hepatobiliary: Yes: Other (fatty liver) Psych: Yes: Bipolar Endocrine: Yes: Diabetes Mellitus (prediabetic) - Past Surgical History Past Surgical History: Yes: Appendectomy, Colonoscopy, Hernia Repair (right inguinal ), Stent (coronary), Upper Endoscopy - Alcohol/Substance Use Hx Alcohol Use: No History of Substance Use: reports: None - Smoking History Smoking history: Former smoker Have you smoked in the past 12 months: No Aproximately how many cigarettes per day: 0 If you are a former smoker, when did you quit?: 2016 - Social History Usual Living Arrangement: Alone ADL: Independent 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 Home Medications - Allergies Allergies/Adverse Reactions: Allergies Allergy/AdvReac Type Severity Reaction Status Date / Time No Known Allergies Allergy Verified 07/24/16 14:40 - Home Medications Home Medications: Ambulatory Orders Aspirin [ASA -] 81 mg PO DAILY 07/19/16 Atorvastatin Ca [Lipitor] 40 mg PO HS 07/19/16 Divalproex Sodium [Depakote] 750 mg PO HS 07/19/16 Fluphenazine HCl 1 mg PO BID 07/19/16 Sertraline HCl [Zoloft -] 100 mg PO DAILY 07/19/16 Cyclobenzaprine HCl 5 mg PO BID 07/24/16 Fluphenazine Decanoate 25 mg IM ASDIR 07/24/16 Amox-Tr/K Cl [Augmentin 875-125mg Tablet -] 1 tab PO BID@0800,1730 tablet 07/26 Clindamycin [Cleocin -] 300 mg PO Q6HPO capsule 07/26/16 Family Disease History - Family Disease History Family Disease History: Heart Disease: Father ( [place] in his 60s), Other: Mother (lived into her 80s) Physical Exam- Vital Signs: Vital Signs Temperature 98.3 F 02/01/17 06:00 Pulse Rate 83 02/01/17 06:00 Respiratory Rate 20 02/01/17 06:00 Blood Pressure 135/80 02/01/17 06:00 O2 Sat by Pulse Oximetry (%) 97 01/31/17 21:00 Constitutional: Yes: Well Nourished, No Distress, Calm Eyes: Yes: WNL, Conjunctiva Clear, EOM Intact HENT: Yes: WNL, Atraumatic, Normocephalic Neck: Yes: WNL, Supple, Trachea Midline Respiratory: Yes: WNL, Regular Gastrointestinal: Yes: WNL, Normal Bowel Sounds, Soft Renal/: Yes: WNL Kidneys: Yes: WNL Pelvis: Yes: Bladder Non Palpable Testicles: Yes: Other (right epididymal tenderness with small right epididymal cyst) Penis: Yes: WNL Prostate Exam: Yes: Swollen Labs: CBC, BMP 01/29/17 06:05 01/29/17 06:05 Imaging - Results Cat Scan: Report Reviewed Ultrasound: Report Reviewed Assessment/Plan impression right epididymal cyst chronic non-infectious epididymytis bph plan tylenol for pain flomax 0.4 mg daily
[2017-02-01] MEDS ORDERED: PT OWN MED DRAWER 7, Y5N ONE ×2 (13:26→15:11)
[2017-02-01] MEDS: LACTOBACILLUS ACIDOPHILUS 1 EACH TAB (FP) PO SCH (13:32)
[2017-02-01] MEDS: SERTRALINE HCL 50 MG TABLET (FP) PO SCH (13:32)
[2017-02-01] MEDS: SULFAMETHOXAZOLE/TRIMETHOPRIM 800MG/160MG D.S. TABLET PO SCH (13:33)
[2017-02-01] MEDS: CYCLOBENZAPRINE HCL 10 MG TABLET (FP) PO SCH (13:33)
[2017-02-01] MEDS: ASPIRIN 81 MG CHEWABLE TABLETS PO SCH (13:34)
[2017-02-01] MEDS: HEPARIN NA (PORCINE) 5,000 UNITS/ML 1ML VIAL SQ SCH (13:34)
--- NOTE | 2017-02-01 14:05 | DS ---
Physical Examination Vital Signs: Vital Signs Temperature 97.8 F 02/01/17 09:00 Pulse Rate 85 02/01/17 09:00 Respiratory Rate 18 02/01/17 09:00 Blood Pressure 130/75 02/01/17 09:00 O2 Sat by Pulse Oximetry (%) 94 L 02/01/17 09:00 Constitutional: Yes: Calm Neck: Yes: Trachea Midline Cardiovascular: Yes: Regular Rate and Rhythm, S1, S2 Respiratory: Yes: CTA Bilaterally Gastrointestinal: Yes: Soft Neurological: Yes: Alert, Oriented Labs: CBC, BMP 01/29/17 06:05 01/29/17 06:05 Discharge Summary Reason For Visit: ABDOMINAL FLUID COLLECTION Current Active Problems Abdominal fluid collection (Acute) Abdominal pain (Acute) Right groin pain (Acute) Hospital Course: - Primary Care Physician PCP: Yoko Grove - Admission Chief Complaint: Right knee pain, nausea, vomiting History of Present Illness: Patient is a 66 year old male with a significant past medical history of left lower extremity [place] Schlatter (remission), borderline diabetes, borderline hyperlipidemia, coronary disease, cardiac stent (1 year ago) (unsure), recurring left knee swelling who presents to the ED with complains of diffuse abdominal pain beginning 4 days prior to arrival. Patient reports 4 days ago he underwent multiple episodes of vomiting secondary to nausea. He also reported multiple episodes of diarrhea x 1 day. He reports intermediary left knee pain beginning yesterday. He reports slight erythema and edema of the left knee that is intensified with flexion and extension. Upon asking if he fell, he is not sure, states he could have. History Source: Patient Limitations to Obtaining History: Poor Historian, Other (unreliable historian, gives different answer to same questions) - Past Medical History Cardiovascular: Yes: Hyperlipdemia Psych: Yes: Bipolar - Smoking History Smoking history: Former smoker Have you smoked in the past 12 months: No Aproximately how many cigarettes per day: 0 If you are a former smoker, when did you quit?: 2016 in hospital: ct scan of abdomen: RLQ fluid collection noted and seth saw patient and said no interention GI saw petros JODIE was order for vomittnig results pending left knee cellutuis: po abx saw patient chronic non infectious epididmytis and BPH started on flomax Condition: Improved - Instructions Diet, Activity, Other Instructions: bactrim bid for 7 days - Home Medications Comprehensive Discharge Medication List: Ambulatory Orders Aspirin [ASA -] 81 mg PO DAILY 07/19/16 Atorvastatin Ca [Lipitor] 40 mg PO HS 07/19/16 Divalproex Sodium [Depakote] 750 mg PO HS 07/19/16 Fluphenazine HCl 1 mg PO BID 07/19/16 Sertraline HCl [Zoloft -] 100 mg PO DAILY 07/19/16 Cyclobenzaprine HCl 5 mg PO BID 07/24/16 Fluphenazine Decanoate 25 mg IM ASDIR 07/24/16 Sulfamethoxazole/Trimethoprim [Bactrim DS -] 1 each PO BID #14 tablet MDD 2 10/13 Tamsulosin HCl [Flomax] 0.4 mg PO BIDLASIX #14 cap.er.24h MDD 1 02/01/17
[2017-02-01 14:23] VITALS: BP 123/81; PULSE 88; TEMP 97.6
[2017-02-03 08:10] LABS: ALPHA 2 MACROGLOBULINS,QN 179 mg/dL (110-276); BILIRUBIN TOTAL 0.2 mg/dL (0.0-1.2); GGT= 24 IU/L (0-65); GLUCOSE SERUM 96 mg/dL (65-99); HAPTOGLOBIN= 318 mg/dL (34-200); HEIGHT 68 Inches (.); TRIGLYCERIDES= 157 mg/dL (0-149)
== END 2017-02-01 18:04 | DRG 920 ==
LOC: JER 12:45 → JERBED 16:38 → UNDOADMIN 17:40 → JERBED 17:40 → J7W 19:40
PROVIDERS: ADMIT Family Medicine; ATTEND Family Medicine
DX: N99.843 Postprocedural seroma of a genitourinary system organ or structure following other procedure (principal); R18.8 Other ascites; F31.89 Other bipolar disorder; L03.116 Cellulitis of left lower limb; N50.3 Cyst of epididymis; R73.03 Prediabetes; E78.5 Hyperlipidemia, unspecified; I25.10 Atherosclerotic heart disease of native coronary artery without angina pectoris; R10.31 Right lower quadrant pain; R19.7 Diarrhea, unspecified; K76.0 Fatty (change of) liver, not elsewhere classified; K59.09 Other constipation; D35.02 Benign neoplasm of left adrenal gland; N40.0 Benign prostatic hyperplasia without lower urinary tract symptoms; M92.52 Juvenile osteochondrosis of tibia tubercle; Z87.891 Personal history of nicotine dependence; Z95.5 Presence of coronary angioplasty implant and graft
CPT/HCPCS: 36415; 73562-TC-LT; 74177-TC; 76870-TC; 78226-TC; 80053; 80061; 80076; 81003; 82150; 82172; 82247; 82465; 82947; 82977; 83010; 83036; 83605; 83615; 83690; 83721; 83883; 84450; 84460; 84478; 84484; 84550; 85025; 85610; 85651; 85730; 86140; 87040; 87086; 93005; 93010; 97116-GP; 97161-GP; 99284-25; A9537; J1644

== ENCOUNTER 2017-04-20 06:08 | Inpatient (IN) | payer OTHER ==
--- NOTE | 2017-04-20 07:45 | PDOC ---
History of Present Illness - General Chief Complaint: Nausea/Vomiting Stated Complaint: VOMITING Time Seen by Provider: 04/20/17 07:21 History Source: Patient - History of Present Illness Initial Comments: 04/20/17 07:45 66yo man with PMH of bipolar, [place] Schlatter (remission), diabetes, HLD, CAD who presents to ED with c/o nausea/vomiting for past two days. NBNB emesis following meals, approximately three times per day, last episode was earlier this AM. Reports appetite decreased for the past few days. No fever or chills. Normal BM last night. Denies dysuria. The patient was last here in January for right knee swelling and diffuse abdominal pain, but states this episode is different from two months ago. In Jan, Abd CT w/o contrast found fluid collection over R femoral thought to be posthernia repair seroma. GB hydrops seen on CT; HIDA found some filling defect , LFTs were wnl. Allergies: NKA Social history: Former smoker. No reported alcohol or drug use. PCP: Dr. Grove Past History - Past Medical History Allergies/Adverse Reactions: Allergies Allergy/AdvReac Type Severity Reaction Status Date / Time No Known Allergies Allergy Verified 04/20/17 06:24 Home Medications: Ambulatory Orders Aspirin [ASA -] 81 mg PO DAILY 04/20/17 Divalproex Sodium [Depakote] 750 mg PO HS 04/20/17 Fluphenazine HCl Injection [Prolixin] 25 mg IJ 04/20/17 Lurasidone HCl [Latuda -] 20 mg PO DAILY 04/20/17 Sertraline HCl [Zoloft] 50 mg PO DAILY 04/20/17 Vortioxetine Hydrobromide [Trintellix] 10 mg PO DAILY 04/20/17 Anemia: No Asthma: No Cancer: No Cardiac Disorders: No CVA: No COPD: No CHF: No Dementia: No Diabetes: No GI Disorders: No Disorders: No HTN: No Hypercholesterolemia: Yes Liver Disease: No Psychiatric Problems: Yes (bipolar) Seizures: No Thyroid Disease: No - Surgical History Abdominal Surgery: No Appendectomy: Yes Cardiac Surgery: No Cholecystectomy: No Lung Surgery: No Neurologic Surgery: No Orthopedic Surgery: No - Immunization History Immunization Up to Date: Yes - Suicide/Smoking/Psychosocial Hx Smoking Status: Yes Smoking History: Former smoker Have you smoked in the past 12 months: No Number of Cigarettes Smoked Daily: 0 If you are a former smoker, when did you quit?: 2016 Information on smoking cessation initiated: No 'Breaking Loose' booklet given: 07/24/16 Hx Alcohol Use: No Drug/Substance Use Hx: No Substance Use Type: None Hx Substance Use Treatment: No *Physical Exam - Vital Signs Last Vital Signs Temp Pulse Resp BP Pulse Ox 98.2 F 110 H 22 128/89 96 04/20/17 06:20 04/20/17 06:20 04/20/17 06:20 04/20/17 06:20 04/20/17 06:20 - Physical Exam General Appearance: Yes: Nourished HEENT: positive: Normal ENT Inspection Neck: positive: Supple Respiratory/Chest: positive: Lungs Clear, Normal Breath Sounds Cardiovascular: positive: Regular Rhythm, Regular Rate Vascular Pulses: Dorsalis-Pedis (R): 2+, Doralis-Pedis (L): 2+ Gastrointestinal/Abdominal: positive: Normal Bowel Sounds, Protuberent, Distended, Rebound (LLQ), Tenderness (LLQ) Male Genitalia: positive: other Extremity: positive: Normal Inspection ED Treatment Course - LABORATORY CBC & Chemistry Diagram: 04/20/17 08:20 04/20/17 08:20 - RADIOLOGY Radiology Studies Ordered: 04/20/17 12:51 CT abd/pelvis w/ contrast: Sequential axial images were obtained from the domes of the diaphragms through the symphysis pubis following the administration of both oral and intravenous contrast material. Atelectatic changes are noted at both lung bases. There are moderately distended loops of proximal small bowel. Ileal loops are of overall normal caliber. Air and stool is seen within a nondistended colon. This appearance is consistent with a high-grade, partial SBO. The transition point appears to be within the left lower quadrant. Clinical correlation and follow-up is recommended. The liver, spleen, pancreas, adrenal glands and kidneys demonstrate no significant abnormalities. The gallbladder is mildly distended without evidence of cholelithiasis or biliary ductal dilatation. There is no evidence of intra-abdominal or retroperitoneal lymphadenopathy or fluid collections. There is no evidence of pneumoperitoneum or intra-abdominal abscess. Examination of the pelvis demonstrates no evidence of pelvic masses, fluid collections or lymphadenopathy. The prostate gland is not significantly enlarged. There is no evidence of acute bony pathology. IMPRESSION: Findings consistent with high-grade, partial SBO with transition point within the left lower quadrant. Clinical correlation and follow-up recommended. Please see above discussion. Medical Decision Making - Medical Decision Making 04/20/17 08:46 Plan: -CBC, CMP, CT abd/pelvis -1L IVF 04/20/17 09:12 04/20/17 08:20 04/20/17 08:20 Hepatic Panel Total Bilirubin 1.5 mg/dL (0.2-1.0) H D 04/20/17 08:20 AST 8 U/L (15-37) L 04/20/17 08:20 ALT 17 U/L (12-78) 04/20/17 08:20 Alkaline Phosphatase 97 U/L (45-117) 04/20/17 08:20 Albumin 3.6 g/dl (3.4-5.0) 04/20/17 08:20 04/20/17 09:28 BUN/Cr and Cr Clearance within limits for IV contrast. F/u CT abd/pelvis w/o contrast. 04/20/17 12:50 CT abd/pelvis revealed high-grade partial SBO. Will place NGT, and make patient NPO. Case discussed with Dr. Grove who will admit patient. Dr. Coulter for surgery was consulted. 04/20/17 12:51 *DC/Admit/Observation/Transfer Diagnosis at time of Disposition: SBO (small bowel obstruction) - Discharge Dispostion Condition at time of disposition: Guarded Admit: Yes - Referrals Referrals: Daiana Saleem MD [Primary Care Provider] - - Patient Instructions - Post Discharge Activity
[2017-04-20] MEDS ORDERED: ONDANSETRON 4 MG/2 ML VIAL IVPUSH ONE (08:25)
[2017-04-20] MEDS ORDERED: SODIUM CHLORIDE 1,000 ML IV STA (08:25)
--- NOTE | 2017-04-20 08:25 | PDOC ---
Attending Attestation - HPI HPI: 04/20/17 08:37 The patient is a 66 year old male from an assisted living home with a significant PMH of diabetes, CAD, bipolar disorder, recurrent nocturia, and inguinal hernia repair who presents to the emergency department with vomiting and abdominal pain beginning approximately 2-3 days ago. The patient reports vomiting 3 times a day and usually a few hours after eating meals. He denies blood in his emesis. The patient also reports associated reduced appetite and shortness of breath with his vomiting. The patient denies cough or other respiratory issues. He reports no changes in his bowel movements, his last being yesterday night. The patient was in the ED in January for right knee swelling and diffuse abdominal pain but notes that this episode of abdominal pain is different from January. The patient seems significantly fatigued at presentation. Allergies: NKA Social history: Former smoker. No reported alcohol or drug use. PCP: Dr. Saleem - Physicial Exam PE: 04/20/17 08:37 GENERAL: (+) Obese. Awake, alert, and fully oriented, in no acute distress HEAD: No signs of trauma EYES: PERRLA, EOMI, sclera anicteric, conjunctiva clear ENT: (+) Dry mucosa. Auricles normal inspection, hearing grossly normal, nares patent, oropharynx clear without exudates. NECK: Normal ROM, supple, no lymphadenopathy, JVD, or masses LUNGS: Breath sounds equal, clear to auscultation bilaterally. No wheezes, and no crackles HEART: Regular rate and rhythm, normal S1 and S2, no murmurs, rubs or gallops ABDOMEN: (+) Diffusely tender, moreso on LLQ. (+) Rebound. Soft, normoactive bowel sounds. No guarding. No masses EXTREMITIES: Normal range of motion, no edema. No clubbing or cyanosis. No cords, erythema, or tenderness NEUROLOGICAL: Cranial nerves II through XII grossly intact. Normal speech. SKIN: Warm, Dry, normal turgor, no rashes or lesions noted. <Channing Valenzuela - Last Filed: 04/20/17 08:37> - Resident Resident Name: Roula Dotson - ED Attending Attestation I have performed the following: I have examined & evaluated the patient, The case was reviewed & discussed with the resident, I agree w/resident's findings & plan, Exceptions are as noted - Medical Decision Making Pt with complicated abd history presenting with lower abd pain. Will obtain CT to further evaluate. <Nikky Tobias - Last Filed: 04/20/17 09:39>
[2017-04-20] MEDS ORDERED: ONDANSETRON 4 MG/2 ML VIAL ONE (08:44)
[2017-04-20 08:59] LABS: MCH 29.2 pg (25.7-33.7); MCHC 33.5 g/dl (32.0-35.9); MEAN CELL VOLUME 87.1 fl (80-96); MEAN PLT VOLUME 9.9 fl (7.5-11.1); PLATELET COUNT 162 K/MM3 (134-434); RDW 15.2 % (11.9-15.9); WHITE BLOOD COUNT 7.7 K/mm3 (4.0-10.0)
[2017-04-20 09:02] LABS: ALBUMIN 3.6 g/dl (3.4-5.0); ALK PHOS 97 U/L (45-117); ANION GAP 10 (8-16); BILIRUBIN,TOTAL 1.5 mg/dL (0.2-1.0); CALCIUM 8.9 mg/dL (8.5-10.1); CO2 26 mmol/L (21-32); CREATININE 1.2 mg/dL (0.7-1.3); GLUCOSE,RANDOM 145 mg/dL (74-106); SGOT/AST 8 U/L (15-37); SGPT/ALT 17 U/L (12-78); TOT PROT 7.3 g/dl (6.4-8.2)
[2017-04-20] MEDS ORDERED: LIDOCAINE HCL 2% JELLY (5 ML/TUBE) ONE (14:25)
[2017-04-20] MEDS ORDERED: LIDOCAINE VISCOUS 2% ORAL/TOP 20 ML UNIT-DOSE CUP MM ONE ×2 (14:25→14:59)
[2017-04-20] MEDS ORDERED: LIDOCAINE HCL 2% JELLY 10 ML CARTRIDGE ONE (14:34)
[2017-04-20] MEDS: D5-1/2NS+20 MEQ KCL - 20 MEQ/1,000 ML INFUS.BAG IV SCH (15:52)
[2017-04-20 18:47] VITALS: BMI 29.3
--- NOTE | 2017-04-20 21:11 | CONSULT ---
Consult Consult Specialty:: General Surgery Referred by:: Dr. Dotson Reason for Consultation:: high-grade partial SBO - History of Present Illness Chief Complaint: abdominal pain, distention, n/v History of Present Illness: 66yo M resident of assisted living facility, with bipolar d/o, HLD, DM, CAD s/p coronary stent x1, [place]-Schlatter disease (not active), s/p appendectomy via lower midline incision (years ago) and RIHR (~2 yrs ago), had been having back pain and taking Rx Motrin 2 per day but ran out on Tuesday. He began having N/V on Tuesday with abdominal pain and distention and has not kept anything down since. He had a soft stool yesterday and is still passing flatus, though he does report constipation historically. He also noted dizziness the last few days. In the ER, he was afebrile with normal wbc. CT shows dilated proximal SB loops and normal distal loops, air and stool in colon, consistent with high- grade partial small bowel obstruction, with transition in the left lower abdomen. He describes "soreness," not pain, and is not sure it is any better since arrival, though he appears relatively comfortable. He has had fluids, and NGT was placed by ER with 500 out before coming to floor. Surgery is consulted for SBO. - History Source History Provided By: Patient, Medical Record Limitations to Obtaining History: Poor Historian - Past Medical History Cardio/Vascular: Yes: CAD (coronary stent at [facility] ), HTN (? - "sometimes"), Hyperlipdemia Gastrointestinal: Yes: Constipation Hepatobiliary: Yes: Other (fatty liver) Psych: Yes: Bipolar Musculoskeletal: Yes: Chronic low back pain, Other (Olman-Schlatter disease ( not currently active) in knees) Endocrine: Yes: Diabetes Mellitus (prediabetic) - Past Surgical History Past Surgical History: Yes: Appendectomy (lower midline scar), Colonoscopy, Hernia Repair (right inguinal ), Stent (coronary), Upper Endoscopy - Alcohol/Substance Use Hx Alcohol Use: No History of Substance Use: reports: None - Smoking History Smoking history: Former smoker Have you smoked in the past 12 months: No Aproximately how many cigarettes per day: 0 If you are a former smoker, when did you quit?: 2015 (13 mos ago) - Social History Usual Living Arrangement: Assisted Living ([facility]) ADL: Independent (assisted living facility - per pt, he has help with some things) 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 Home Medications - Allergies Allergies/Adverse Reactions: Allergies Allergy/AdvReac Type Severity Reaction Status Date / Time No Known Allergies Allergy Verified 04/20/17 06:24 - Home Medications Home Medications: Ambulatory Orders Aspirin [ASA -] 81 mg PO DAILY 04/20/17 Divalproex Sodium [Depakote] 750 mg PO HS 04/20/17 Fluphenazine HCl Injection [Prolixin] 25 mg IJ 04/20/17 Lurasidone HCl [Latuda -] 20 mg PO DAILY 04/20/17 Sertraline HCl [Zoloft] 50 mg PO DAILY 04/20/17 Vortioxetine Hydrobromide [Trintellix] 10 mg PO DAILY 04/20/17 Family Disease History - Family Disease History Family Disease History: Heart Disease: Father ( [place] in his 60s), Other: Mother (lived into her 80s) Review of Systems Unable to obtain ROS, reason: limited/poor hx - Review of Systems Constitutional: denies: Chills, Fever Eyes: denies: Blurred Vision, Recent Change in Vision HENT: denies: Difficult Swallowing, Nasal Congestion, Throat Pain Cardiovascular: denies: Chest Pain, Palpitations Respiratory: reports: SOB. denies: Cough Gastrointestinal: reports: Abdominal Pain ("soreness" with hpi), Bloating, Constipation, Nausea (with hpi), Vomiting (with hpi). denies: Diarrhea Genitourinary: denies: Burning, Dysuria Musculoskeletal: reports: Back Pain, Joint Pain (knees sometimes, but not since January (left - was here then)) Integumentary: denies: Change in Color, Rash Neurological: reports: Dizziness (last few days), Unsteady Gait (walks with cane ). denies: Headache Physical Exam Vital Signs: Vital Signs Temperature 98.7 F 04/20/17 16:29 Pulse Rate 100 H 04/20/17 16:29 Respiratory Rate 14 04/20/17 16:29 Blood Pressure 102/73 04/20/17 16:29 O2 Sat by Pulse Oximetry (%) 95 04/20/17 16:29 Constitutional: Yes: Well Nourished, No Distress, Calm Eyes: Yes: Conjunctiva Clear, EOM Intact HENT: Yes: Atraumatic, Normocephalic Neck: Yes: Supple, Trachea Midline Cardiovascular: Yes: Regular Rate and Rhythm, Tachycardia (mild), Murmur Respiratory: Yes: Regular, CTA Bilaterally, On Nasal O2. No: Rhonchi, Wheezes Gastrointestinal: Yes: Soft, Distention (with tympany), Hyperactive Bowel Sounds , Tenderness (mild diffusely, more at RLQ/almost R groin area, no rebound or guarding), Other (well-healed lower midline and R groin oblique scars) ...Rectal Exam: Yes: Deferred Renal/: No: CVA Tenderness - Left, CVA Tenderness - Right, Scrotal Edema Musculoskeletal: No: Joint Stiffness, Joint Swelling Extremities: No: Cool, Cyanosis Edema: No Peripheral Pulses WNL: Yes Integumentary: No: Jaundice, Rash Neurological: Yes: Alert, Oriented (mostly - "I thought Thanksgiving was today. "), Confusion (seems easily confused, cannot remember some details of health history), Tremors Labs: CBC, BMP 04/20/17 08:20 04/20/17 08:20 CMP Sodium 140 mmol/L (136-145) 04/20/17 08:20 Potassium 3.6 mmol/L (3.5-5.1) 04/20/17 08:20 Chloride 104 mmol/L (98-107) 04/20/17 08:20 Carbon Dioxide 26 mmol/L (21-32) 04/20/17 08:20 Anion Gap 10 (8-16) 04/20/17 08:20 BUN 22 mg/dL (7-18) H D 04/20/17 08:20 Creatinine 1.2 mg/dL (0.7-1.3) 04/20/17 08:20 Creat Clearance w eGFR > 60 (>60) 04/20/17 08:20 Random Glucose 145 mg/dL (74-106) H D 04/20/17 08:20 Calcium 8.9 mg/dL (8.5-10.1) 04/20/17 08:20 Total Bilirubin 1.5 mg/dL (0.2-1.0) H D 04/20/17 08:20 AST 8 U/L (15-37) L 04/20/17 08:20 ALT 17 U/L (12-78) 04/20/17 08:20 Alkaline Phosphatase 97 U/L (45-117) 04/20/17 08:20 Total Protein 7.3 g/dl (6.4-8.2) 04/20/17 08:20 Albumin 3.6 g/dl (3.4-5.0) 04/20/17 08:20 Lipase 69 U/L (73-393) L 04/20/17 08:21 Imaging - Results X-ray: Image Reviewed (AXR with NGT in stomach, still with stacked dilated SB loops) Cat Scan: Report Reviewed (dilated proximal SB loops with distal loops normal/ decompressed, air and stool in colon - high-grade partial SBO with transition in left lower abdomen, no free air or fluid), Image Reviewed Problem List - Problems (1) Intestinal adhesions with partial obstruction Assessment/Plan: admitted to medicine NPO/IVF/NGT to low cont suction (80-100) hold all po meds minimize narcotic pain meds trend labs serial AXR daily to eval passage of contrast follow clinical exam discussed with patient that if obstruction does not improve/resolve with conservative management, he may need surgery, which could include bowel resection Thank you for the opportunity to participate in the care of this patient. Dr. Danyel Bourgeois will be covering for me until Tuesday Code(s): K56.51 - INTESTINAL ADHESIONS [BANDS], WITH PARTIAL OBSTRUCTION (2) Vomiting with nausea, not intractable Assessment/Plan: no nausea now, NG with 500 out from ER, ~100ml in canister now, brownish/clear Code(s): R11.2 - NAUSEA WITH VOMITING, UNSPECIFIED Qualifiers: Vomiting type: unspecified Qualified Code(s): R11.2 - Nausea with vomiting , unspecified (3) Bipolar 1 disorder Assessment/Plan: need to hold po meds while NPO with NGT to suction - recommend psych consult for med management Code(s): F31.9 - BIPOLAR DISORDER, UNSPECIFIED (4) Hyperlipidemia Code(s): E78.5 - HYPERLIPIDEMIA, UNSPECIFIED Qualifiers: Hyperlipidemia type: unspecified Qualified Code(s): E78.5 - Hyperlipidemia , unspecified
[2017-04-20] MEDS: HEPARIN NA (PORCINE) 5,000 UNITS/ML 1ML VIAL SQ SCH (22:37)
[2017-04-21] MEDS: D5-1/2NS+20 MEQ KCL - 20 MEQ/1,000 ML INFUS.BAG IV SCH ×3 (03:00→21:31)
[2017-04-21 07:55] LABS: ALBUMIN 3.3 g/dl (3.4-5.0); ANION GAP 6 (8-16); BILIRUBIN,TOTAL 0.8 mg/dL (0.2-1.0); CALCIUM 8.9 mg/dL (8.5-10.1); CO2 28 mmol/L (21-32); CREATININE 1.1 mg/dL (0.7-1.3); GLUCOSE,RANDOM 144 mg/dL (74-106); SGPT/ALT 14 U/L (12-78)
[2017-04-21 07:56] LABS: ALK PHOS 84 U/L (45-117); TOT PROT 6.8 g/dl (6.4-8.2)
[2017-04-21 07:59] LABS: BASOPHIL 0.1 % (0-2.0); EOSINOPHIL 1.2 % (0-4.5); MCHC 34.5 g/dl (32.0-35.9); MEAN CELL VOLUME 87.1 fl (80-96); MEAN PLT VOLUME 9.8 fl (7.5-11.1); NEUTROPHILS 71.2 % (42.8-82.8); PLATELET COUNT 186 K/MM3 (134-434)
[2017-04-21 08:05] LABS: INR 1.15 (0.82-1.09)
[2017-04-21 08:06] LABS: SGOT/AST 4 U/L (15-37)
--- NOTE | 2017-04-21 08:36 | HP ---
Admitting History and Physical - Admission History of Present Illness: 66 year old male from an assisted living home with a significant PMH of diabetes , CAD, bipolar disorder, recurrent nocturia, and inguinal hernia repair who presents to the emergency department with vomiting and abdominal pain beginning approximately 2-3 days ago. The patient reports vomiting 3 times a day and usually a few hours after eating meals. He denies blood in his emesis. The patient also reports associated reduced appetite and shortness of breath with his vomiting. The patient denies cough or other respiratory issues. He reports no changes in his bowel movements, his last being yesterday night. The patient was in the ED in January for right knee swelling and diffuse abdominal pain but notes that this episode of abdominal pain is different from January. - Past Medical History Cardiovascular: Yes: CAD (coronary stent at [facility] ), HTN (? - "sometimes"), Hyperlipdemia Gastrointestinal: Yes: Constipation Hepatobiliary: Yes: Other (fatty liver) Psych: Yes: Bipolar Musculoskeletal: Yes: Chronic low back pain, Other ([place]-Schlatter disease ( not currently active) in knees) Endocrine: Yes: Diabetes Mellitus (prediabetic) - Past Surgical History Past Surgical History: Yes: Appendectomy (lower midline scar), Colonoscopy, Hernia Repair (right inguinal ), Stent (coronary), Upper Endoscopy - Smoking History Smoking history: Former smoker Have you smoked in the past 12 months: No Aproximately how many cigarettes per day: 0 If you are a former smoker, when did you quit?: 2015 (13 mos ago) - Alcohol/Substance Use Hx Alcohol Use: No History of Substance Use: reports: None - Social History ADL: Independent (assisted living facility - per pt, he has help with some things) 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 Home Medications - Allergies Allergies/Adverse Reactions: Allergies Allergy/AdvReac Type Severity Reaction Status Date / Time No Known Allergies Allergy Verified 04/20/17 06:24 - Home Medications Home Medications: Ambulatory Orders Aspirin [ASA -] 81 mg PO DAILY 04/20/17 Divalproex Sodium [Depakote] 750 mg PO HS 04/20/17 Fluphenazine HCl Injection [Prolixin] 25 mg IJ 04/20/17 Lurasidone HCl [Latuda -] 20 mg PO DAILY 04/20/17 Sertraline HCl [Zoloft] 50 mg PO DAILY 04/20/17 Vortioxetine Hydrobromide [Trintellix] 10 mg PO DAILY 04/20/17 Family Disease History - Family Disease History Family Disease History: Heart Disease: Father ( [place] in his 60s), Other: Mother (lived into her 80s) Review of Systems - Review of Systems Cardiovascular: denies: Chest Pain Respiratory: denies: SOB Gastrointestinal: reports: Abdominal Pain, Nausea Genitourinary: reports: No Symptoms Physical Examination Vital Signs: Vital Signs Temperature 98.7 F 04/21/17 06:00 Pulse Rate 96 H 04/21/17 06:00 Respiratory Rate 20 04/21/17 06:00 Blood Pressure 133/75 04/21/17 06:00 O2 Sat by Pulse Oximetry (%) 96 04/20/17 21:00 Neck: Yes: Supple Cardiovascular: Yes: Regular Rate and Rhythm Respiratory: Yes: Regular, CTA Bilaterally Gastrointestinal: Yes: Soft, Hypoactive Bowel Sounds, Other (NGT IN PLACE) Labs: CBC, BMP 04/21/17 06:50 04/21/17 06:50 Imaging - Results Cat Scan: Report Reviewed Problem List - Problems (1) SBO (small bowel obstruction) Assessment/Plan: NPO IVF GI CONSULT SURGERY ON BOARD FUA FOLLOW LYTES Code(s): K56.609 - UNSP INTESTNL OBST, UNSP TO PARTIAL VERSUS COMPLETE OBST (2) Bipolar 1 disorder Assessment/Plan: PSYCH CONSULT Code(s): F31.9 - BIPOLAR DISORDER, UNSPECIFIED
--- NOTE | 2017-04-21 09:05 | PN ---
Progress Note, Physician Chief Complaint: Abdominal pain History of Present Illness: 66yo male with bipolar disorder, HLD, DM, CAD s/p coronary stent x1, [place]- Schlatter disease (not active), s/p appendectomy and RIHR is being treated for a high-grade partial SBO with transition in left lower abdomen with NGT decompression. He complained only of nausea this morning, otherwise improved abdominal pain. - Current Medication List Current Medications: Active Medications Heparin Sodium (Porcine) (Heparin -) 5,000 unit SQ BID ATUL Last Admin: 04/20/17 22:37 Dose: 5,000 unit Potassium Chloride/Dextrose/Sod Cl (D5-1/2ns+20 Meq Kcl -) 20 meq in 1,000 mls @ 125 mls/hr IV ASDIR ATUL Last Admin: 04/21/17 03:00 Dose: 125 mls/hr Ondansetron HCl (Zofran Injection) 8 mg IVPB Q6H PRN PRN Reason: NAUSEA - Objective Vital Signs: Vital Signs Temperature 98.8 F 04/21/17 08:00 Pulse Rate 93 H 04/21/17 08:00 Respiratory Rate 20 04/21/17 08:00 Blood Pressure 139/89 04/21/17 08:00 O2 Sat by Pulse Oximetry (%) 96 04/20/17 21:00 Vital Signs Period Temp Pulse Resp BP Sys/Reed Pulse Ox Last 24 Hr 98.1 F-98.8 F 89-104 14-21 102-139/73-91 95-96 Intake & Output 04/20/17 04/21/17 04/21/17 23:59 07:59 15:59 Intake Total 1500 Output Total 800 200 Balance -800 1300 Intake: IV 1500 D5-1/2NS+20 MEQ KCL - 20 1500 meq In 1,000 ml @ 125 mls /hr IV ASDIR ATUL Rx#: [id number] Output: Gastric Drainage 500 200 Urine 300 Void 300 Other: Voiding Method Urinal Bowel Movement No Constitutional: Yes: No Distress Eyes: Yes: Conjunctiva Clear, EOM Intact HENT: Yes: Atraumatic, Normocephalic Neck: Yes: Supple, Trachea Midline Cardiovascular: Yes: Regular Rate and Rhythm, S1, S2. No: Murmur Respiratory: Yes: Regular, CTA Bilaterally Gastrointestinal: Yes: Normal Bowel Sounds, Soft, Distention, Hypoactive Bowel Sounds, Other (NGT 700 total since placement). No: Rectal Bleeding, Tenderness , Rebound Genitourinary: No: CVA Tenderness - Left, CVA Tenderness - Right Musculoskeletal: No: Muscle Pain, Muscle Weakness Edema: No Peripheral Pulses WNL: Yes Peripheral Pulses: Left Doralis Pedis: 2+, Right Dorsalis Pedis: 2+ Integumentary: No: Jaundice (minimal interval improvent of SB distension left abdomne) Neurological: Yes: Alert, Oriented Psychiatric: Yes: Alert, Oriented Labs: CBC, BMP 04/21/17 06:50 04/21/17 06:50 INR, PTT INR 1.15 (0.82-1.09) H 04/21/17 06:50 - ....Imaging X-ray: Pending, Image Reviewed Problem List - Problems (1) Intestinal adhesions with partial obstruction Assessment/Plan: 66 yo male with previous abdominal surgery now with a small bowel obstruction. NGT 700 since placement only nausea now. continue NPO/IVF/NGT to low cont suction (80-100) Ordered zofran minimize narcotic pain meds trend labs repeat AXR daily to eval passage of contrast follow clinical exam Code(s): K56.51 - INTESTINAL ADHESIONS [BANDS], WITH PARTIAL OBSTRUCTION (2) Vomiting with nausea, not intractable Code(s): R11.2 - NAUSEA WITH VOMITING, UNSPECIFIED Qualifiers: Vomiting type: unspecified Qualified Code(s): R11.2 - Nausea with vomiting , unspecified (3) Abdominal pain Code(s): R10.9 - UNSPECIFIED ABDOMINAL PAIN
[2017-04-21] MEDS: ONDANSETRON 4 MG/2 ML VIAL IVPB PRN (09:44)
[2017-04-21] MEDS: HEPARIN NA (PORCINE) 5,000 UNITS/ML 1ML VIAL SQ SCH ×2 (09:45→21:24)
--- NOTE | 2017-04-21 13:34 | CON.PSY ---
Psychiatry Consult Chief Complaint: 66 year old Male, a resident at [facility] psychiatric Assisted living home for the pasty 13months. patient admitted with Small Bowel Obstruction. Patient has been a very potent and complicated psych pharm medications. Claims he was seen by his Psych MD last week. [place] on no psych meds. - Previous Psychiatric Treatment Outpatient: Less than 6 mos ago Inpatient: 2 or more prior admissions - Previous Substance Abuse Treatment Outpatient: None Inpatient: None - Reason for Previous Treatment Reason for Previous Treatment: Biploar Illness - Current Medications Current Medications: Active Medications Heparin Sodium (Porcine) (Heparin -) 5,000 unit SQ BID [facility] Last Admin: 04/21/17 09:45 Dose: 5,000 unit Potassium Chloride/Dextrose/Sod Cl (D5-1/2ns+20 Meq Kcl -) 20 meq in 1,000 mls @ 125 mls/hr IV ASDIR [facility] Last Admin: 04/21/17 13:22 Dose: 125 mls/hr Ondansetron HCl (Zofran Injection) 8 mg IVPB Q6H PRN PRN Reason: NAUSEA Last Admin: 04/21/17 09:44 Dose: 8 mg - Allergies Allergies: Allergies Allergy/AdvReac Type Severity Reaction Status Date / Time No Known Allergies Allergy Verified 04/20/17 06:24 - Current Living Status Usual Living Arrangement: Assisted Living - Current Mental Status Evaluation Appearance: Disheveled Attitude: Guarded - Affect Affect: Constrictive Appropriateness: Appropriate to Content - Mood Mood: Euthymic - Speech/Language Expressive: Coherent - Psychomotor Activity Psychomotor Activity: Slowed - Thought Process Thought Process: Intact - Thought Content Hallucinations: Absent Delusions: Absent - Self Perception Self Perception: No Impairment - Cognition Attention: Alert Orientation: Time Memory, Immediate Recall: Intact Memory, Short Term: 3/3 Memory, Remote with Promptin/3 - Concentration Serial Sevens Intact: Yes Simple Calculations Intact: Yes - Abstraction Proverb Interpretation: Intact Judgement: Intact - Insight Insight: Intact - Impulse Control Impulse Control: Good Control - Suicidal Ideation Suicidal Ideation: No - Homicidal Ideation Homicidal Ideation: No Assessment/Plan 1) Continue holding psych meds. 2) will gradually put back on some of the psych meds. 3) will follow.
--- NOTE | 2017-04-21 16:46 | PN ---
Progress Note (short form) - Note Progress Note: GI CONSULTATION: PLEASE SEE THE COMPLETE DICTATION IN BRIEF: 66M WITH MULTIPLE MED PROBLEMS HAD COLONOSOCPY >[address] REDD ? RESULTS ADMIT WITH 3-4 DAYS OF N/V/ABD PAIN DISTENDED ABDOMEN AND RADIOGRAPHIC EVIDENCE OF SBO PRIOR SURGERY > 30 YEARS AGO DESPITE G+ STOOL; NO EVIDENCE OF ACUTE OR ACTIVE GI BLEEDING HGB STABLE RECC: SURGICAL CARE/ F/U FUA/ NPO/IVF/NGT DECOMPRESSION IF DOES NOT OPEN UP, MAY NEED EXPLORATION F/U LABS PPI PROPHYLAXIS IV THANKS, MD PATO
--- NOTE | 2017-04-21 17:08 | CONS ---
DATE OF CONSULTATION: 04/21/2017 I was asked by Dr. Nikky Tobias to evaluate the patient for a small bowel obstruction. The patient is a 66-year-old white male from the [facility] living home. We have not seen him in the past. He has a past medical history of diabetes, atherosclerotic coronary artery disease, bipolar disorder, recurrent nocturia, inguinal hernia repair and appendectomy. The patient is a very poor historian and the majority of the medical data comes from the EMR. The patient apparently said that he came to the emergency room as he was having repetitive vomiting and abdominal pain that start 3 to 4 days ago. He says that after eating, he was having pain with onset of vomiting and this was becoming more severe. Prior this, he had not had symptoms like this. He tells me that he had GI workup including colonoscopy approximately [address] Delgado. He does not think there were any findings that he can recall. Otherwise, he was not having change in bowel habits. He was not having constipation until now. His last bowel movement he says was over 2 days. The patient was not having any hematemesis and denies fevers, chills or sweats. The patient cannot recall his medications offhand. However, he does report that he had been taking Motrin 1-1/2 a day for the past couple of weeks because of some knee pain. The patient says that he has no known history of any liver, biliary or gallbladder disease, and since he is here in the hospital he is not really feeling much better. He has had an NG draining some enteric contents. More in the record reveals that he has a history of Olman-Schlatter disease and he has no known drug allergies. He is a former smoker and he does not drink alcohol or use drugs. His primary care physician is Dr. Grove. The patient's report is noted to also have psychiatric bipolar disease but it is unclear that he has been taking medication. He also has hyperlipidemia and apparently when the patient came in to the emergency room he had a normal white count and his lab data was essentially unrevealing, but he had a CAT scan consistent with a high-grade partial small bowel obstruction with a transition point in the left lower quadrant. MEDICATIONS: Currently, the patient's medications in the hospital include: 1. Zofran. 2. Heparin subcutaneous. 3. IV fluid. PHYSICAL EXAMINATION: Vital Signs: He has a temperature of 99.5. His heart rate is in the 90s and his blood pressure 140/90. General: He is in minimal distress. He is not really in much distress but he looks just a little bit uncomfortable. He has that NG tube draining. There is a canister at the bedside with about 400 mL of enteric-like content. According to the ins and outs, yesterday he had 500 mL out of the NG tube and today so far he has had 200 mL out of the NG tube. He is somewhat pale in appearance. HEENT: Sclerae are anicteric. His NG tube is draining as noted. Abdomen: Definitely distended and bowel sounds are pretty much absent or hypoactive. There are little tinkles here and there of bowel noises. There is definite tenderness to palpation diffusely. There are no masses, rebound or guarding. Rectal: Exam reveals some very light levin stool that is guaiac positive. LABORATORY DATA: Reveals a white count of 8, hemoglobin and hematocrit of 13 and 38 and 186,000 platelets. His coagulation is normal, essentially with an INR of 1.1. His chemistries reveal serum sodium of 147, potassium 3.8, chloride 113, BUN 15, creatinine 1.1. His liver enzymes are all within normal limits. His albumin has dropped to 3.3 here in the hospital. In terms of followup it appears that he did have a repeat today to follow up the CAT scan that revealed an obstruction and this still reveals a high-grade bowel obstruction. IMPRESSION: The patient is a 66-year-old gentleman who has medical history as noted. He has heart disease, hyperlipidemia. He has cardiac disease and apparently bipolar disorder although it is unclear that he had been on medication. The only medications that he was taking, and it is unclear how consistent he was with it, is Zoloft, Latuda, Prolixin and Trintellix, as well as Depakote and aspirin. Currently in the hospital he is not receiving these medications at the present time and he comes in with clinical and radiographic imaging consistent with what appears to be a small bowel obstruction. He has had prior surgery in the past, so likely this is adhesive in nature. For now, I would recommend, as you are doing, aggressive IV fluid hydration. He also needs some free water as his free water is depleted per his serum sodium, pain management and NG tube decompression. If he does not open up clinically in the next 24 to 36 hours, I would think that he may need surgical exploration, resection and repair. In terms of the patient being guaiac positive, the etiology is uncertain. He had been taking a lot of nonsteroidal medication in the past. It is unclear whether he has gastritis and whether the NG tube has exacerbated this or whether he could have an ulcer or an occult lesion. He does report having a colonoscopy [address] Delgado[address] The findings are not known to us at this time, so further workup can be done as needed, but clinically there is no evidence of ongoing bleeding as his hemoglobin has actually remained stable and improved, likely due to some dehydration, but there is no evidence of acute bleeding at this time. While he is here, I would recommend empiric proton pump inhibition. We will continue to be available to aid in management of his patient; however, at this time, I would defer it to surgical management. DAVIDSON WHYTE M.D. [id number]
--- NOTE | 2017-04-21 21:54 | EKG ---
Test Reason : Blood Pressure : / mmHG Vent. Rate : 097 BPM Atrial Rate : 097 BPM P-R Int : 148 ms QRS Dur : 090 ms QT Int : 356 ms P-R-T Axes : 034 014 -08 degrees QTc Int : 452 ms SINUS RHYTHM WITH OCCASIONAL PREMATURE VENTRICULAR COMPLEXES CANNOT RULE OUT ANTEROSEPTAL INFARCT (CITED ON OR BEFORE 20-JUL-2011) T WAVE ABNORMALITY, CONSIDER INFERIOR ISCHEMIA ABNORMAL ECG WHEN COMPARED WITH ECG OF 28-JAN-2017 19:17, PREMATURE VENTRICULAR COMPLEXES ARE NOW PRESENT Confirmed by JOY ROBISON, LAURA ([id number]) on 04/21/2017 9:54:01 PM Referred By: Confirmed By:LAURA HAMILTON MD
[2017-04-22] MEDS: D5-1/2NS+20 MEQ KCL - 20 MEQ/1,000 ML INFUS.BAG IV SCH ×3 (05:14→16:06)
--- NOTE | 2017-04-22 07:11 | PN ---
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 Continues to have nausea. no BM has had flatus several times. Abdominal pain is not any worse. - Current Medication List Current Medications: Active Medications Heparin Sodium (Porcine) (Heparin -) 5,000 unit SQ BID [facility] Last Admin: 04/21/17 21:24 Dose: 5,000 unit Potassium Chloride/Dextrose/Sod Cl (D5-1/2ns+20 Meq Kcl -) 20 meq in 1,000 mls @ 125 mls/hr IV ASDIR [facility] Last Admin: 04/22/17 05:14 Dose: 125 mls/hr Ondansetron HCl (Zofran Injection) 8 mg IVPB Q6H PRN PRN Reason: NAUSEA Last Admin: 04/21/17 09:44 Dose: 8 mg Pantoprazole Sodium (Protonix Iv) 40 mg IVPUSH DAILY [facility] - Objective Vital Signs: Vital Signs Temperature 98.1 F 04/22/17 05:30 Pulse Rate 89 04/22/17 05:30 Respiratory Rate 20 04/22/17 05:30 Blood Pressure 131/87 04/22/17 05:30 O2 Sat by Pulse Oximetry (%) 97 04/21/17 20:01 Vital Signs Period Temp Pulse Resp BP Sys/Reed Pulse Ox Last 24 Hr 98.1 F-99.5 F 89-98 20-20 131-146/80-91 97-97 Intake & Output 04/21/17 04/22/17 04/22/17 23:59 07:59 15:59 Intake Total 1250 1250 Output Total 500 1100 Balance 750 150 Intake: IV 1250 1250 D5-1/2NS+20 MEQ KCL - 20 1250 1250 meq In 1,000 ml @ 125 mls /hr IV ASDIR [facility] Rx#: [id number] Output: Gastric Drainage 300 300 Urine 200 800 Void 200 800 Other: Voiding Method Urinal Urinal Bowel Movement No Constitutional: Yes: Well Nourished, No Distress Eyes: Yes: Conjunctiva Clear, EOM Intact HENT: Yes: Atraumatic, Normocephalic Neck: Yes: Supple, Trachea Midline Cardiovascular: Yes: Regular Rate and Rhythm, S1, S2. No: Murmur Respiratory: Yes: Regular, CTA Bilaterally. No: Rales, Wheezes Gastrointestinal: Yes: Soft, Distention, Hypoactive Bowel Sounds, Tenderness ( discomfort on deep palpation), Other (NGT to LCWS put out 300ml in 24). No: Tenderness, Epigastrium, Tenderness, Rebound Genitourinary: No: CVA Tenderness - Left, CVA Tenderness - Right Musculoskeletal: No: Muscle Pain, Muscle Weakness Edema: No Peripheral Pulses WNL: Yes Peripheral Pulses: Left Radial: 2+, Right Radial: 2+, Left Doralis Pedis: 2+, Right Dorsalis Pedis: 2+ Neurological: Yes: Alert, Oriented Psychiatric: Yes: Alert, Oriented Labs: CBC, BMP 04/22/17 07:00 04/22/17 07:00 Abnormal Lab Results 04/22/17 04/22/17 07:00 07:00 WBC 10.5 H D Sodium 151 H Chloride 116 H Random Glucose 140 H - ....Imaging X-ray: Pending, Report Reviewed, Image Reviewed (resolving SBO. air and contrast in colon) Problem List - Problems (1) Intestinal adhesions with partial obstruction Assessment/Plan: 66 yo male with previous abdominal surgery now with a small bowel obstruction. NGT 300nl since yesterday, reports persistent nausea and flatus last night. started on protonix drip and suction was lowered because of some bloody effluent in the NGT which has since rresolved. continue NPO/IVF/NGT to low cont suction zofran and protonix minimize narcotic pain meds f/u repeat labs repeat AXR shows interval improvement follow clinical exam Discussed the possibility of surgery with the patient, he mentioned that his ex- helps him make such decisions and she may be visiting today. We will return to discuss things when she arrives Code(s): K56.51 - INTESTINAL ADHESIONS [BANDS], WITH PARTIAL OBSTRUCTION (2) Vomiting with nausea, not intractable Code(s): R11.2 - NAUSEA WITH VOMITING, UNSPECIFIED Qualifiers: Vomiting type: unspecified Qualified Code(s): R11.2 - Nausea with vomiting , unspecified (3) Abdominal pain Code(s): R10.9 - UNSPECIFIED ABDOMINAL PAIN
[2017-04-22 07:48] LABS: BASOPHIL 0.3 % (0-2.0); EOSINOPHIL 1.4 % (0-4.5); MCH 29.4 pg (25.7-33.7); MCHC 33.3 g/dl (32.0-35.9); MEAN CELL VOLUME 88.4 fl (80-96); MEAN PLT VOLUME 9.3 fl (7.5-11.1); NEUTROPHILS 73.9 % (42.8-82.8); PLATELET COUNT 181 K/MM3 (134-434); RDW 15.3 % (11.9-15.9); WHITE BLOOD COUNT 10.5 K/mm3 (4.0-10.0)
[2017-04-22 08:29] LABS: ANION GAP 9 (8-16); CO2 26 mmol/L (21-32); CREATININE 1.2 mg/dL (0.7-1.3); GLUCOSE,RANDOM 140 mg/dL (74-106)
--- NOTE | 2017-04-22 09:34 | PN ---
Progress Note, Physician History of Present Illness: FEELS A LITTLE BETTER - Current Medication List Current Medications: Active Medications Heparin Sodium (Porcine) (Heparin -) 5,000 unit SQ BID [facility] Last Admin: 04/21/17 21:24 Dose: 5,000 unit Potassium Chloride/Dextrose/Sod Cl (D5-1/2ns+20 Meq Kcl -) 20 meq in 1,000 mls @ 125 mls/hr IV [facility]IR [facility] Last Admin: 04/22/17 05:14 Dose: 125 mls/hr Ondansetron HCl (Zofran Injection) 8 mg IVPB Q6H PRN PRN Reason: NAUSEA Last Admin: 04/21/17 09:44 Dose: 8 mg Pantoprazole Sodium (Protonix Iv) 40 mg IVPUSH DAILY [facility] - Objective Vital Signs: Vital Signs Temperature 98 F 04/22/17 07:51 Pulse Rate 98 H 04/22/17 07:51 Respiratory Rate 18 04/22/17 07:51 Blood Pressure 131/86 04/22/17 07:51 O2 Sat by Pulse Oximetry (%) 97 04/22/17 08:43 Cardiovascular: Yes: Regular Rate and Rhythm Respiratory: Yes: Regular, CTA Bilaterally Gastrointestinal: Yes: Soft, Hypoactive Bowel Sounds, Tenderness Labs: CBC, BMP 04/22/17 07:00 04/22/17 07:00 INR, PTT INR 1.15 (0.82-1.09) H 04/21/17 06:50 Problem List - Problems (1) SBO (small bowel obstruction) Assessment/Plan: NPO IVF GI CONSULT SURGERY ON BOARD FUA FOLLOW LYTES Code(s): K56.609 - UNSP INTESTNL OBST, UNSP TO PARTIAL VERSUS COMPLETE OBST (2) Bipolar 1 disorder Assessment/Plan: PSYCH CONSULT Code(s): F31.9 - BIPOLAR DISORDER, UNSPECIFIED
[2017-04-22] MEDS: PANTOPRAZOLE SODIUM 40 MG VIAL IVPUSH SCH (10:08)
[2017-04-22] MEDS: HEPARIN NA (PORCINE) 5,000 UNITS/ML 1ML VIAL SQ SCH ×2 (10:08→21:29)
--- NOTE | 2017-04-22 15:31 | PN ---
GI Progress Note Subjective: GI FOLLOW UP PATIENT IS OB TO CHAIR NO BLOOD IN NGT STATES HE WANTS TO GO BACK TO BED FOR A NAP NO N/V/F/C/S PASSING FLATUS BUT NO BM'S STILL HAS SOME ABDOMINAL PAIN, BUT LESS LESS NGT OUTPUT TODAY HE FEELS BETTER OVERALL - Objective Vital Signs: Vital Signs Temperature 98 F 04/22/17 07:51 Pulse Rate 98 H 04/22/17 07:51 Respiratory Rate 18 04/22/17 07:51 Blood Pressure 131/86 04/22/17 07:51 O2 Sat by Pulse Oximetry (%) 97 04/22/17 08:43 Constitutional: Well Nourished, No Distress, Calm Eyes: Yes: WNL (+BS/ LESS DISTENDED, BUT STILL SOMEWHAT DISTENDED; LESS TENDER TO PALPATION NO REBOUND OR GUARDING) Labs: CBC, BMP 04/22/17 07:00 04/22/17 07:00 INR, PTT INR 1.15 (0.82-1.09) H 04/21/17 06:50 Assessment/Plan 66M ADMIT WITH OBSTRUCTINVE SYMPTOMS FOUND TO HAVE SBO ON ADMISSION APPEARS IMPROVING SOMEWHAT WITH IVF/ NGT DECOMPRESSION STILL NO BM'S LESS NGT OUTPUT TODAY CONTINUE CURRENT PLAN IF NO BOWEL ACTIVITY, CONSIDER A SB SERIES VIA THE NGT TO ASSURE LUMINAL PATENCY DISTALLY NO EVIDENCE OF ONGOING BLEEDING--HAD SOME PASQUALE RED DILUTED BLOOD IN NGT YESTERDAY, BUT SUSPECT THAT WAS DUE TO THE HIGH SUCTION WITH RESULTANT NGR EROSIONS TRAUMA HOWEVER, HAD G+ STOOL AND HAD BEEN ON NSAIDS AND A GASTRIC ULCER/MASS LESION CANNOT BE EXCLUDED ON EMPIRIC PPI MEDS OBSERVE/ F/U FUA/ F/U H/H CONTINUED SURGICAL OBSERVATION MD PATO
[2017-04-22] MEDS ORDERED: LACTATED RINGERS SOLUTION 1000 ML INFUS.BAG IV ONE (18:14)
[2017-04-22] MEDS ORDERED: LACTATED RINGERS SOLUTION 1,000 ML IV SCH (18:45)
[2017-04-22 20:33] LABS: ANION GAP 6 (8-16); CALCIUM 8.9 mg/dL (8.5-10.1); CO2 27 mmol/L (21-32); CREATININE 1.2 mg/dL (0.7-1.3); GLUCOSE,RANDOM 137 mg/dL (74-106)
[2017-04-22] MEDS ORDERED: METOPROLOL TARTRATE 5 MG/5 ML VIAL IVPUSH PRN (22:51)
[2017-04-22] MEDS: METOPROLOL TARTRATE 5 MG/5 ML VIAL IVPB PRN (23:35)
[2017-04-23] MEDS: SODIUM CHLORIDE 0.45%/POT 20 MEQ/1,000 ML INFUS.BAG IV SCH ×3 (00:21→22:50)
[2017-04-23] MEDS: METOPROLOL TARTRATE 5 MG/5 ML VIAL IVPB PRN ×2 (06:10→13:27)
[2017-04-23 08:17] LABS: BASOPHIL 0.1 % (0-2.0); EOSINOPHIL 0.7 % (0-4.5); MCH 28.9 pg (25.7-33.7); MCHC 32.9 g/dl (32.0-35.9); MEAN CELL VOLUME 88.1 fl (80-96); MEAN PLT VOLUME 8.9 fl (7.5-11.1); NEUTROPHILS 78.5 % (42.8-82.8); PLATELET COUNT 174 K/MM3 (134-434); RDW 15.4 % (11.9-15.9); WHITE BLOOD COUNT 12.3 K/mm3 (4.0-10.0)
--- NOTE | 2017-04-23 08:31 | PN ---
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 Continues to have nausea. no BM has had flatus several times. - Current Medication List Current Medications: Active Medications Heparin Sodium (Porcine) (Heparin -) 5,000 unit SQ BID [facility] Last Admin: 04/22/17 21:29 Dose: 5,000 unit Potassium Chloride/Sodium Chloride (1/2ns+20meq Kcl) 20 meq in 1,000 mls @ 150 mls/hr IV [facility]IR [facility] Last Admin: 04/23/17 00:21 Dose: 150 mls/hr Metoprolol Tartrate (Lopressor Injection -) 5 mg IVPB Q6H PRN Last Admin: 04/23/17 06:10 Dose: 5 mg Ondansetron HCl (Zofran Injection) 8 mg IVPB Q6H PRN PRN Reason: NAUSEA Last Admin: 04/21/17 09:44 Dose: 8 mg Pantoprazole Sodium (Protonix Iv) 40 mg IVPUSH DAILY [facility] Last Admin: 04/22/17 10:08 Dose: 40 mg - Objective Vital Signs: Vital Signs Temperature 97.2 F L 04/23/17 05:54 Pulse Rate 78 04/23/17 06:10 Respiratory Rate 18 04/23/17 05:54 Blood Pressure 156/94 04/23/17 06:10 O2 Sat by Pulse Oximetry (%) 97 04/22/17 21:00 Vital Signs Period Temp Pulse Resp BP Sys/Reed Pulse Ox Last 24 Hr 97.2 F-99.2 F 71-97 18-20 118-162/54-105 97-97 Intake & Output 04/22/17 04/23/17 04/23/17 23:59 07:59 15:59 Intake Total 2575 1750 300 Output Total 1100 800 Balance 1475 950 300 Intake: IV 2575 1550 1/2NS+20MEQ KCL 20 meq In 950 1,000 ml @ 150 mls/hr IV ASDIR [facility] Rx#: [id number] D5-1/2NS+20 MEQ KCL - 20 1575 600 meq In 1,000 ml @ 175 mls /hr IV ASDIR [facility] Rx#: [id number] Lactated Ringers Solution 1000 1,000 ml @ 1000 mls/hr IV [facility]IR [facility] Rx#: [id number] IVPB 200 Oral 300 Output: Gastric Drainage 700 Urine 400 800 Void 400 800 Other: Voiding Method Urinal Urinal Constitutional: Yes: Well Nourished, No Distress, Calm Eyes: Yes: Conjunctiva Clear, EOM Intact HENT: Yes: Atraumatic, Normocephalic Neck: Yes: Supple, Trachea Midline Cardiovascular: Yes: Regular Rate and Rhythm, S1, S2 Respiratory: Yes: Regular, CTA Bilaterally Gastrointestinal: Yes: Normal Bowel Sounds, Soft, Distention (improved distension, less typanny) Genitourinary: No: CVA Tenderness - Left, CVA Tenderness - Right Extremities: No: Cool, Cyanosis Edema: No Peripheral Pulses WNL: Yes Neurological: Yes: Alert, Oriented Psychiatric: Yes: Alert, Oriented Labs: CBC, BMP 04/23/17 07:00 INR, PTT INR 1.15 (0.82-1.09) H 04/21/17 06:50 Problem List - Problems (1) Intestinal adhesions with partial obstruction Assessment/Plan: 66 yo male with previous abdominal surgery now with a resolving small bowel obstruction, nausea has improved. having regular flatus now, hungry and thristy. discontinued NGT continue zofran and protonix f/u repeat labs repeat AXR shows interval resolving SBO resume oral psychiatric medication add stool softener will follow Code(s): K56.51 - INTESTINAL ADHESIONS [BANDS], WITH PARTIAL OBSTRUCTION (2) Vomiting with nausea, not intractable Code(s): R11.2 - NAUSEA WITH VOMITING, UNSPECIFIED Qualifiers: Vomiting type: unspecified Qualified Code(s): R11.2 - Nausea with vomiting , unspecified (3) Abdominal pain Code(s): R10.9 - UNSPECIFIED ABDOMINAL PAIN
[2017-04-23 09:10] LABS: ALBUMIN 2.9 g/dl (3.4-5.0); ALK PHOS 79 U/L (45-117); ANION GAP 8 (8-16); BILIRUBIN,TOTAL 0.8 mg/dL (0.2-1.0); CO2 24 mmol/L (21-32); GLUCOSE,RANDOM 104 mg/dL (74-106); SGOT/AST 7 U/L (15-37); SGPT/ALT 11 U/L (12-78); TOT PROT 6.6 g/dl (6.4-8.2)
[2017-04-23] MEDS: HEPARIN NA (PORCINE) 5,000 UNITS/ML 1ML VIAL SQ SCH ×2 (09:10→21:58)
[2017-04-23] MEDS: PANTOPRAZOLE SODIUM 40 MG VIAL IVPUSH SCH (09:11)
[2017-04-23] MEDS: ONDANSETRON 4 MG/2 ML VIAL IVPB PRN (10:38)
--- NOTE | 2017-04-23 12:45 | PN ---
Progress Note, Physician History of Present Illness: FEELS A LITTLE BETTER - Current Medication List Current Medications: Active Medications Heparin Sodium (Porcine) (Heparin -) 5,000 unit SQ BID [facility] Last Admin: 04/23/17 09:10 Dose: 5,000 unit Potassium Chloride/Sodium Chloride (1/2ns+20meq Kcl) 20 meq in 1,000 mls @ 150 mls/hr IV ASDIR [facility] Last Admin: 04/23/17 00:21 Dose: 150 mls/hr Metoprolol Tartrate (Lopressor Injection -) 5 mg IVPB Q6H PRN Last Admin: 04/23/17 06:10 Dose: 5 mg Ondansetron HCl (Zofran Injection) 8 mg IVPB Q6H PRN PRN Reason: NAUSEA Last Admin: 04/23/17 10:38 Dose: 8 mg Pantoprazole Sodium (Protonix Iv) 40 mg IVPUSH DAILY [facility] Last Admin: 04/23/17 09:11 Dose: 40 mg - Objective Vital Signs: Vital Signs Temperature 98.6 F 04/23/17 09:08 Pulse Rate 83 04/23/17 09:08 Respiratory Rate 18 04/23/17 09:08 Blood Pressure 150/80 04/23/17 09:08 O2 Sat by Pulse Oximetry (%) 97 04/23/17 09:10 Cardiovascular: Yes: Regular Rate and Rhythm Respiratory: Yes: Regular, CTA Bilaterally Gastrointestinal: Yes: Normal Bowel Sounds, Soft, Hypoactive Bowel Sounds Labs: CBC, BMP 04/23/17 07:00 04/23/17 07:00 INR, PTT INR 1.15 (0.82-1.09) H 04/21/17 06:50 Problem List - Problems (1) SBO (small bowel obstruction) Assessment/Plan: NPO IVF GI CONSULT SURGERY ON BOARD FUA FOLLOW LYTES Code(s): K56.609 - UNSP INTESTNL OBST, UNSP TO PARTIAL VERSUS COMPLETE OBST (2) Bipolar 1 disorder Assessment/Plan: PSYCH CONSULT Code(s): F31.9 - BIPOLAR DISORDER, UNSPECIFIED
--- NOTE | 2017-04-23 14:12 | PN ---
GI Progress Note Subjective: GI FOLLOW UP PATIENT REPORTS THAT THE NGT WAS JUST REMOVED AND THAT HE FEELS BETTER A RESULT PASSING A LOT OF FLATUS NO BM'S TO REPORT OF YET NO N/V/F/C/S STILL HAS SOME ABDOMINAL PAIN, BUT LESS - Objective Vital Signs: Vital Signs Temperature 98.5 F 04/23/17 14:05 Pulse Rate 83 04/23/17 14:05 Respiratory Rate 18 04/23/17 14:05 Blood Pressure 143/98 04/23/17 14:05 O2 Sat by Pulse Oximetry (%) 97 04/23/17 09:10 Constitutional: Well Nourished, No Distress, Calm (VERY SOFT ABDOMEN +BS ACTUIVE SOFTER NT TO PALPATION) Labs: CBC, BMP 04/23/17 07:00 04/23/17 07:00 INR, PTT INR 1.15 (0.82-1.09) H 04/21/17 06:50 Assessment/Plan 66M ADMIT WITH OBSTRUCTIVE SYMPTOMS FOUND TO HAVE SBO ON ADMISSION APPEARS IMPROVING WITH IVF/ NGT DECOMPRESSION NOW NGT OUT AND FUA IS IMPROVED STILL NO BM'S SLIGHT RISE IN WBC'S/ AFEBRILE AND NON-TOXIC IN APPEARANCE CONTINUE CURRENT PLAN AND WOULD START CLEARS PO TOLERATED IF HAS PAIN/ VOMITING/ DISTENTION, THEN WILL NEED A SB SERIES HAD G+ STOOL AND HAD BEEN ON NSAIDS AND A GASTRIC ULCER/MASS LESION CANNOT BE EXCLUDED ON EMPIRIC PPI MEDS/ H/H APPEARS STABLE OBSERVE/ F/U FUA/ F/U H/H CONTINUED SURGICAL OBSERVATION MD PATO
[2017-04-24] MEDS: SODIUM CHLORIDE 0.45%/POT 20 MEQ/1,000 ML INFUS.BAG IV SCH (06:27)
[2017-04-24] MEDS: HEPARIN NA (PORCINE) 5,000 UNITS/ML 1ML VIAL SQ SCH ×2 (09:57→21:17)
[2017-04-24] MEDS: PANTOPRAZOLE SODIUM 40 MG VIAL IVPUSH SCH (09:58)
[2017-04-24 12:00] LABS: BASOPHIL 0.6 % (0-2.0); EOSINOPHIL 3.5 % (0-4.5); MCH 28.9 pg (25.7-33.7); MCHC 32.4 g/dl (32.0-35.9); MEAN CELL VOLUME 89.1 fl (80-96); NEUTROPHILS 67.7 % (42.8-82.8); PLATELET COUNT 156 K/MM3 (134-434); RDW 15.3 % (11.9-15.9)
[2017-04-24 12:26] LABS: ALBUMIN 2.8 g/dl (3.4-5.0); ALK PHOS 75 U/L (45-117); ANION GAP 9 (8-16); CALCIUM 8.3 mg/dL (8.5-10.1); CO2 25 mmol/L (21-32); CREATININE 1.1 mg/dL (0.7-1.3); GLUCOSE,RANDOM 119 mg/dL (74-106); SGOT/AST 7 U/L (15-37); SGPT/ALT 14 U/L (12-78); TOT PROT 6.4 g/dl (6.4-8.2)
--- NOTE | 2017-04-24 13:38 | PN ---
Progress Note, Physician History of Present Illness: FEELS A LITTLE BETTER - Current Medication List Current Medications: Active Medications Heparin Sodium (Porcine) (Heparin -) 5,000 unit SQ BID [facility] Last Admin: 04/24/17 09:57 Dose: 5,000 unit Potassium Chloride/Sodium Chloride (1/2ns+20meq Kcl) 20 meq in 1,000 mls @ 150 mls/hr IV ASDIR [facility] Last Admin: 04/24/17 06:27 Dose: 150 mls/hr Metoprolol Tartrate (Lopressor Injection -) 5 mg IVPB Q6H PRN Last Admin: 04/23/17 13:27 Dose: 5 mg Ondansetron HCl (Zofran Injection) 8 mg IVPB Q6H PRN PRN Reason: NAUSEA Last Admin: 04/23/17 10:38 Dose: 8 mg Pantoprazole Sodium (Protonix Iv) 40 mg IVPUSH DAILY [facility] Last Admin: 04/24/17 09:58 Dose: 40 mg - Objective Vital Signs: Vital Signs Temperature 97.9 F 04/24/17 12:31 Pulse Rate 61 04/24/17 12:31 Respiratory Rate 20 04/24/17 08:37 Blood Pressure 104/66 04/24/17 12:31 O2 Sat by Pulse Oximetry (%) 94 L 04/24/17 09:00 Cardiovascular: Yes: Regular Rate and Rhythm Respiratory: Yes: Regular, CTA Bilaterally Gastrointestinal: Yes: Normal Bowel Sounds, Soft. No: Tenderness Labs: CBC, BMP 04/24/17 11:56 04/24/17 11:56 INR, PTT INR 1.15 (0.82-1.09) H 04/21/17 06:50 Problem List - Problems (1) SBO (small bowel obstruction) Assessment/Plan: NPO IVF GI CONSULT SURGERY ON BOARD FUA IMPROVED FOLLOW LYTES Code(s): K56.609 - UNSP INTESTNL OBST, UNSP TO PARTIAL VERSUS COMPLETE OBST (2) Bipolar 1 disorder Assessment/Plan: PSYCH CONSULT Code(s): F31.9 - BIPOLAR DISORDER, UNSPECIFIED
--- NOTE | 2017-04-24 15:20 | PN ---
GI Progress Note Subjective: GI FOLLOW UP PATIENT REPORTS THAT HE FEELS MUCH BETTER AND ABDOMINAL PAIN IS MINIMAL IN THE RLQ PASSING A LOT OF FLATUS AND HAD A BM NO N/V/F/C/S CLEARS PO WITHOUT PROBLEMS - Objective Vital Signs: Vital Signs Temperature 97.9 F 04/24/17 12:31 Pulse Rate 61 04/24/17 12:31 Respiratory Rate 20 04/24/17 08:37 Blood Pressure 104/66 04/24/17 12:31 O2 Sat by Pulse Oximetry (%) 94 L 04/24/17 09:00 Constitutional: Well Nourished, No Distress, Calm Gastrointestinal Inspection: Yes: WNL (VERY SOFT ABDOMEN WITH GOOD BS MINIMAL RLQ PAIN NO REBOUND OR GUARDIUNG) Labs: CBC, BMP 04/24/17 11:56 04/24/17 11:56 INR, PTT INR 1.15 (0.82-1.09) H 04/21/17 06:50 Assessment/Plan 66M ADMIT WITH OBSTRUCTIVE SYMPTOMS FOUND TO HAVE SBO ON ADMISSION APPEARS RESOLVED WITH IVF/ NGT DECOMPRESSION NOW NGT OUT AND FUA IS IMPROVED AND HAVING BM'S LABS IMPROVED WELL CONTINUE CURRENT PLAN AND WOULD ADVANCE DIET TO SOLIDS TOLERATED IF HAS PAIN/ VOMITING/ DISTENTION, THEN WILL NEED A SB SERIES HAD G+ STOOL AND HAD BEEN ON NSAIDS AND A GASTRIC ULCER/MASS LESION CANNOT BE EXCLUDED ON EMPIRIC PPI MEDS/ H/H APPEARS STABLE OBSERVE CONSIDER GI EVALUATION OUTPATIENT ONCE IMPROVED MD PATO
--- NOTE | 2017-04-24 19:18 | PN ---
Progress Note, Physician History of Present Illness: Pt with no specific complaints. No overnight events. He has been passing flatus and had at least 3 BMs today, slightly loose per pt. Distention is less. AXRs have been progressively improving, NGT out yesterday and clears started. Tolerating clears yesterday and today, had regular tray in addition for dinner and is doing ok. No nausea. Still with some abdominal discomfort but no worse. Ambulated to with cane and assist after exam to use bathroom. Pt seen and examined in bed. - Current Medication List Current Medications: Active Medications Heparin Sodium (Porcine) (Heparin -) 5,000 unit SQ BID [facility] Last Admin: 04/24/17 09:57 Dose: 5,000 unit Metoprolol Tartrate (Lopressor Injection -) 5 mg IVPB Q6H PRN Last Admin: 04/23/17 13:27 Dose: 5 mg Ondansetron HCl (Zofran Injection) 8 mg IVPB Q6H PRN PRN Reason: NAUSEA Last Admin: 04/23/17 10:38 Dose: 8 mg Pantoprazole Sodium (Protonix Iv) 40 mg IVPUSH DAILY [facility] Last Admin: 04/24/17 09:58 Dose: 40 mg - Objective Vital Signs: Vital Signs Temperature 97.9 F 04/24/17 12:31 Pulse Rate 61 04/24/17 12:31 Respiratory Rate 20 04/24/17 08:37 Blood Pressure 104/66 04/24/17 12:31 O2 Sat by Pulse Oximetry (%) 94 L 04/24/17 09:00 Constitutional: Yes: Well Nourished, No Distress, Calm Gastrointestinal: Yes: Normal Bowel Sounds, Soft, Abdomen, Obese (protuberant), Distention (less, without tympany), Tenderness (mild diffuse except LUQ, without R/G) Extremities: No: Cool, Cyanosis Neurological: Yes: Alert, Oriented, Tremors. No: Unsteady Gait (walks ok with cane and assist) Labs: CBC, BMP 04/24/17 11:56 04/24/17 11:56 Na coming down - ....Imaging X-ray: Report Reviewed (AXR with resolving SBO, no sig dilated SB loops, air and stool in colon), Image Reviewed Problem List - Problems (1) Intestinal adhesions with partial obstruction Assessment/Plan: resolving well tolerating diet + bowel function GI consult noted will stop IVF, continue diet check with psych about restarting home meds if doing well tomorrow with diet, consider d/c back to [facility] soon Code(s): K56.51 - INTESTINAL ADHESIONS [BANDS], WITH PARTIAL OBSTRUCTION (2) Vomiting with nausea, not intractable Assessment/Plan: resolved Code(s): R11.2 - NAUSEA WITH VOMITING, UNSPECIFIED Qualifiers: Vomiting type: unspecified Qualified Code(s): R11.2 - Nausea with vomiting , unspecified (3) Bipolar 1 disorder Assessment/Plan: holding meds, psych consult noted check in am about restarting meds Code(s): F31.9 - BIPOLAR DISORDER, UNSPECIFIED (4) Hyperlipidemia Code(s): E78.5 - HYPERLIPIDEMIA, UNSPECIFIED Qualifiers: Hyperlipidemia type: unspecified Qualified Code(s): E78.5 - Hyperlipidemia , unspecified
[2017-04-25] MEDS: HEPARIN NA (PORCINE) 5,000 UNITS/ML 1ML VIAL SQ SCH ×2 (09:33→21:10)
--- NOTE | 2017-04-25 09:36 | DS ---
Physical Examination Vital Signs: Vital Signs Temperature 98.1 F 04/25/17 08:52 Pulse Rate 79 04/25/17 08:52 Respiratory Rate 16 04/25/17 08:52 Blood Pressure 157/90 04/25/17 08:52 O2 Sat by Pulse Oximetry (%) 95 04/24/17 21:00 sitting eating Breakfast says abdominal pain is better had multiple BM yesterday Constitutional: Yes: Calm Neck: Yes: Trachea Midline Cardiovascular: Yes: Regular Rate and Rhythm, S1, S2 Respiratory: Yes: CTA Bilaterally Gastrointestinal: Yes: Soft Edema: No Neurological: Yes: Alert, Oriented Labs: CBC, BMP 04/24/17 11:56 04/24/17 11:56 Discharge Summary Reason For Visit: SMALL BOWEL OBSTRUCTION Current Active Problems Intestinal adhesions with partial obstruction (Acute) SBO (small bowel obstruction) (Acute) Vomiting with nausea, not intractable (Acute) Hospital Course: 66 year old male from an assisted living home with a significant PMH of diabetes , CAD, bipolar disorder, recurrent nocturia, and inguinal hernia repair who presents to the emergency department with vomiting and abdominal pain beginning approximately 2-3 days ago. The patient reports vomiting 3 times a day and usually a few hours after eating meals. He denies blood in his emesis. The patient also reports associated reduced appetite and shortness of breath with his vomiting. The patient denies cough or other respiratory issues. He reports no changes in his bowel movements, his last being yesterday night. The patient was in the ED in January for right knee swelling and diffuse abdominal pain but notes that this episode of abdominal pain is different from January. - Past Medical History Cardiovascular: Yes: CAD (coronary stent at [facility] ), HTN (? - "sometimes"), Hyperlipdemia Gastrointestinal: Yes: Constipation Hepatobiliary: Yes: Other (fatty liver) Psych: Yes: Bipolar Musculoskeletal: Yes: Chronic low back pain, Other ([place]-Schlatter disease ( not currently active) in knees) Endocrine: Yes: Diabetes Mellitus (prediabetic) - Past Surgical History Past Surgical History: Yes: Appendectomy (lower midline scar), Colonoscopy, Hernia Repair (right inguinal ), Stent (coronary), Upper Endoscopy in hospital: ct scan of abdomen: high grade possible SBO NPO, NGT tube to low continuous suction, ivf serial abdominal xray now much improved had multiple bm and flatus and tolerated clears and now on regular diet seen by psych meds on hold and will get psych to come back and see patient Condition: Guarded - Instructions Diet, Activity, Other Instructions: psych follow up in one week regular diet Referrals: Daiana Saleem MD [Primary Care Provider] - Disposition: [facility] - Home Medications Comprehensive Discharge Medication List: Ambulatory Orders Aspirin [ASA -] 81 mg PO DAILY 04/20/17 Divalproex Sodium [Depakote] 750 mg PO HS 04/20/17 Fluphenazine HCl Injection [Prolixin] 25 mg IJ 04/20/17 Lurasidone HCl [Latuda -] 20 mg PO DAILY 04/20/17 Sertraline HCl [Zoloft] 50 mg PO DAILY 04/20/17 Vortioxetine Hydrobromide [Trintellix] 10 mg PO DAILY 04/20/17
--- NOTE | 2017-04-25 09:40 | PN ---
Progress Note (short form) - Note Progress Note: will have psych see patient before sending back to [facility] today to see which meds need to be restarted
[2017-04-25] MEDS: PANTOPRAZOLE 40 MG TABLET (FP) PO SCH (10:16)
--- NOTE | 2017-04-25 15:13 | PN ---
Progress Note (short form) - Note Progress Note: spoke to Dr lux he will come and see patient today to see which meds need to be restarted patient cheryle then go back to nursing home tommrow morning
--- NOTE | 2017-04-25 18:15 | PN ---
Progress Note (short form) - Note Progress Note: Patient appears to be medically stable and [facility] MS: alert, calm , pleasant and coperative. not displaying any acute Psychosis or depression. cognition intact. Plan: will start Zoloft and Latuda.
--- NOTE | 2017-04-25 18:39 | PN ---
Progress Note, Physician History of Present Illness: Pt with no specific complaints. No overnight events. Still with some abdominal discomfort but no worse, getting less. Pt seen and examined in bed. Pt states he does not want to go back to [facility] yet, but cannot state why, just "not ready yet," and he "doesn't like it there." No nausea. Eating ok. Having small BMs only. - Current Medication List Current Medications: Active Medications Heparin Sodium (Porcine) (Heparin -) 5,000 unit SQ BID [facility] Last Admin: 04/25/17 09:33 Dose: 5,000 unit Lurasidone HCl (Latuda -) 40 mg PO DAILY [facility] Metoprolol Tartrate (Lopressor Injection -) 5 mg IVPB Q6H PRN Last Admin: 04/23/17 13:27 Dose: 5 mg Ondansetron HCl (Zofran Injection) 8 mg IVPB Q6H PRN PRN Reason: NAUSEA Last Admin: 04/23/17 10:38 Dose: 8 mg Pantoprazole Sodium (Protonix -) 40 mg PO DAILY [facility] Last Admin: 04/25/17 10:16 Dose: 40 mg Sertraline HCl (Zoloft -) 50 mg PO DAILY [facility] - Objective Vital Signs: Vital Signs Temperature 98.1 F 04/25/17 08:52 Pulse Rate 79 04/25/17 08:52 Respiratory Rate 16 04/25/17 08:52 Blood Pressure 157/90 04/25/17 08:52 O2 Sat by Pulse Oximetry (%) 95 04/25/17 09:00 Constitutional: Yes: Well Nourished, No Distress, Calm, Other (resting comfortably) Gastrointestinal: Yes: Soft, Abdomen, Obese, Tenderness (minimal diffuse - better than yesterday) Extremities: No: Cool, Cyanosis Integumentary: No: Jaundice, Rash Neurological: Yes: Alert, Oriented Psychiatric: Yes: Alert, Oriented. No: Agitated Labs: no new labs Problem List - Problems (1) Intestinal adhesions with partial obstruction Assessment/Plan: resolved tolerating diet + bowel function psych has seen, some home meds resuming d/c planning for tomorrow no need for surgical followup Code(s): K56.51 - INTESTINAL ADHESIONS [BANDS], WITH PARTIAL OBSTRUCTION (2) Bipolar 1 disorder Assessment/Plan: resuming zoloft, latuda per psych Code(s): F31.9 - BIPOLAR DISORDER, UNSPECIFIED (3) Hyperlipidemia Code(s): E78.5 - HYPERLIPIDEMIA, UNSPECIFIED Qualifiers: Hyperlipidemia type: unspecified Qualified Code(s): E78.5 - Hyperlipidemia , unspecified
[2017-04-26] MEDS ORDERED: PT OWN MED DRAWER 7, Y5N ONE (09:00)
--- NOTE | 2017-04-26 09:20 | DS ---
Physical Examination Vital Signs: Vital Signs Temperature 97.5 F L 04/26/17 05:52 Pulse Rate 97 H 04/26/17 05:52 Respiratory Rate 20 04/26/17 05:52 Blood Pressure 141/92 04/26/17 05:52 O2 Sat by Pulse Oximetry (%) 96 04/25/17 21:00 Labs: CBC, BMP 04/24/17 11:56 04/24/17 11:56 Discharge Summary Reason For Visit: SMALL BOWEL OBSTRUCTION Current Active Problems Intestinal adhesions with partial obstruction (Acute) SBO (small bowel obstruction) (Acute) Vomiting with nausea, not intractable (Acute) Hospital Course: Hospital Course: 66 year old male from an assisted living home with a significant PMH of diabetes , CAD, bipolar disorder, recurrent nocturia, and inguinal hernia repair who presents to the emergency department with vomiting and abdominal pain beginning approximately 2-3 days ago. The patient reports vomiting 3 times a day and usually a few hours after eating meals. He denies blood in his emesis. The patient also reports associated reduced appetite and shortness of breath with his vomiting. The patient denies cough or other respiratory issues. He reports no changes in his bowel movements, his last being yesterday night. The patient was in the ED in January for right knee swelling and diffuse abdominal pain but notes that this episode of abdominal pain is different from January. - Past Medical History Cardiovascular: Yes: CAD (coronary stent at [facility] ), HTN (? - "sometimes"), Hyperlipdemia Gastrointestinal: Yes: Constipation Hepatobiliary: Yes: Other (fatty liver) Psych: Yes: Bipolar Musculoskeletal: Yes: Chronic low back pain, Other (Olman-Schlatter disease ( not currently active) in knees) Endocrine: Yes: Diabetes Mellitus (prediabetic) - Past Surgical History Past Surgical History: Yes: Appendectomy (lower midline scar), Colonoscopy, Hernia Repair (right inguinal ), Stent (coronary), Upper Endoscopy in hospital: ct scan of abdomen: high grade possible SBO NPO, NGT tube to low continuous suction, ivf serial abdominal xray now much improved had multiple bm and flatus and tolerated clears and now on regular diet seen by psych meds on hold and will get psych to come back and see patient Condition: Improved - Instructions Diet, Activity, Other Instructions: psych follow up in one week regular diet Referrals: Daiana Saleem MD [Primary Care Provider] - Disposition: [facility] - Home Medications Comprehensive Discharge Medication List: Ambulatory Orders Aspirin [ASA -] 81 mg PO DAILY 04/20/17 Heparin - 5,000 unit SQ BID vial 04/26/17 Lurasidone HCl [Latuda -] 40 mg PO DAILY tablet 04/26/17 Pantoprazole Sodium [Protonix -] 40 mg PO DAILY tablet.ec 04/26/17 Sertraline HCl [Zoloft -] 50 mg PO DAILY tablet 04/26/17
[2017-04-26] MEDS ORDERED: SERTRALINE HCL 50 MG TABLET (FP) PO SCH (10:00)
[2017-04-26] MEDS ORDERED: LURASIDONE HCL 40 MG TABLET PO SCH (10:00)
[2017-04-26] MEDS: amLODIPine BESYLATE 5 MG TABLET (FP) PO SCH ×2 (10:35→10:38)
[2017-04-26] MEDS: HEPARIN NA (PORCINE) 5,000 UNITS/ML 1ML VIAL SQ SCH (10:38)
[2017-04-26] MEDS: PANTOPRAZOLE 40 MG TABLET (FP) PO SCH (10:39)
--- NOTE | 2017-04-26 10:58 | PN ---
Progress Note, Physician History of Present Illness: Pt with no specific complaints. No overnight events. Still with some mild abdominal discomfort but no worse. Pt seen and examined in bed. No nausea. Eating ok. Had one BM overnight. Doesn't think he is having enough. - Current Medication List Current Medications: Active Medications Amlodipine Besylate (Norvasc -) 5 mg PO DAILY [facility] Last Admin: 04/26/17 10:38 Dose: 5 mg Heparin Sodium (Porcine) (Heparin -) 5,000 unit SQ BID [facility] Last Admin: 04/26/17 10:38 Dose: 5,000 unit Lurasidone HCl (Latuda -) 40 mg PO DAILY [facility] Last Admin: 04/26/17 10:38 Dose: 40 mg Pantoprazole Sodium (Protonix -) 40 mg PO DAILY [facility] Last Admin: 04/26/17 10:39 Dose: 40 mg Sertraline HCl (Zoloft -) 50 mg PO DAILY [facility] Last Admin: 04/26/17 10:39 Dose: 50 mg - Objective Vital Signs: Vital Signs Temperature 97.5 F L 04/26/17 05:52 Pulse Rate 97 H 04/26/17 05:52 Respiratory Rate 20 04/26/17 05:52 Blood Pressure 141/92 04/26/17 05:52 O2 Sat by Pulse Oximetry (%) 96 04/25/17 21:00 Constitutional: Yes: Well Nourished, No Distress, Calm Gastrointestinal: Yes: Soft, Abdomen, Obese, Distention (mild). No: Tenderness Extremities: No: Cool, Cyanosis Integumentary: No: Jaundice, Rash Neurological: Yes: Alert, Oriented Psychiatric: Yes: Alert, Oriented. No: Agitated Problem List - Problems (1) Intestinal adhesions with partial obstruction Assessment/Plan: resolved tolerating diet + bowel function psych has seen, some home meds resumed d/c today no need for surgical followup Code(s): K56.51 - INTESTINAL ADHESIONS [BANDS], WITH PARTIAL OBSTRUCTION (2) Bipolar 1 disorder Assessment/Plan: resuming zoloft, latuda per psych Code(s): F31.9 - BIPOLAR DISORDER, UNSPECIFIED (3) Hyperlipidemia Code(s): E78.5 - HYPERLIPIDEMIA, UNSPECIFIED Qualifiers: Hyperlipidemia type: unspecified Qualified Code(s): E78.5 - Hyperlipidemia , unspecified
[2017-04-26 14:13] VITALS: BP 98/63; PULSE 85; TEMP 98.1
== END 2017-04-26 15:30 | DRG 389 ==
LOC: JER 06:08 → JERBED 13:24 → J6S 18:11
PROVIDERS: ADMIT Family Medicine; ATTEND Family Medicine
PROC: 0D9670Z Drainage of Stomach with Drainage Device, Via Natural or Artificial Opening (ICD-10-PCS; principal; 2017-04-20)
DX: K56.51 Intestinal adhesions [bands], with partial obstruction (principal); F31.89 Other bipolar disorder; I25.10 Atherosclerotic heart disease of native coronary artery without angina pectoris; E78.5 Hyperlipidemia, unspecified; K40.90 Unilateral inguinal hernia, without obstruction or gangrene, not specified as recurrent; K76.0 Fatty (change of) liver, not elsewhere classified; M54.5 Low back pain; K59.09 Other constipation; R11.2 Nausea with vomiting, unspecified; E66.8 Other obesity; Z68.29 Body mass index [BMI] 29.0-29.9, adult; Z95.5 Presence of coronary angioplasty implant and graft; Z87.891 Personal history of nicotine dependence
CPT/HCPCS: 36415; 71010-TC; 74020-TC; 74177-TC; 80048; 80053; 83690; 85025; 85027; 85610; 86850; 86900; 86901; 93005; 93010; 97116-GP; 97161-GP; 99285-25; J1644

== ENCOUNTER 2019-04-11 10:10 | Inpatient (IN) | payer OTHER ==
[2019-04-11] MEDS ORDERED: ACETAMINOPHEN 1000 MG/100 ML VIAL (NON FORMULARY) IVPB ONE (10:51)
[2019-04-11] MEDS ORDERED: ONDANSETRON 4 MG/2 ML VIAL IVPB ONE (10:51)
[2019-04-11] MEDS ORDERED: PANTOPRAZOLE SODIUM 40 MG in SODIUM CHLORIDE 100 ML IVPB ONE (10:51)
[2019-04-11] MEDS ORDERED: SODIUM CHLORIDE 1,000 ML IV STA (10:51)
[2019-04-11] MEDS ORDERED: ACETAMINOPHEN INJECTION 100 ML IVPB ONE (11:15)
[2019-04-11] MEDS ORDERED: ONDANSETRON 4 MG/2 ML VIAL ONE (11:16)
[2019-04-11] MEDS ORDERED: PANTOPRAZOLE SODIUM 40 MG/100 ML BAG IVPB ONE (11:16)
--- NOTE | 2019-04-11 11:55 | PDOC ---
Documentation entered by Marisol Loyd SCRIBE, acting as scribe for Derick Glover MD. Derick Glover MD: This documentation has been prepared by the Evert mesa Nirvannie, SCRIBE, under my direction and personally reviewed by me in its entirety. I confirm that the documentation accurately reflects all work, treatment, procedures, and medical decision making performed by me. History of Present Illness - General Chief Complaint: Pain, Acute Stated Complaint: ABD PAIN Time Seen by Provider: 04/11/19 10:17 History Source: Patient Exam Limitations: No Limitations - History of Present Illness Initial Comments: 04/11/19 11:22 The patient is a 68 year old male, with a significant past medical history of CAD (s/p cardiac stenting x1), bipolar disorder, recurrent nocturia, and SBO ( 2017, who presents to the emergency department with 1 day of diffuse abdominal pain with associated nausea and vomiting. Pt endorses diffuse abdominal pain. States that he vomited once at home and once in the ED. Denies bloody or dark vomit. No diarrhea or constipation. He denies any recent fevers, chills, headache or dizziness. He denies any recent chest pain or shortness of breath. He denies any recent dysuria, frequency, urgency or hematuria. Allergies: NKDA Past surgical history: R inguinal hernia repair. Appendectomy. Social History: Former smoker. Past History - Past Medical History Allergies/Adverse Reactions: Allergies Allergy/AdvReac Type Severity Reaction Status Date / Time No Known Allergies Allergy Verified 04/11/19 10:14 Home Medications: Ambulatory Orders Aspirin [ASA -] 81 mg PO DAILY 04/20/17 Sertraline HCl [Zoloft -] 50 mg PO DAILY tablet 04/26/17 Divalproex *ER* [Depakote *ER* -] 250 mg PO DAILY 11/28/17 Fluphenazine Decanoate [Prolixin Decanoate (Long-Acting Injection) -] 25 mg IJ ASDIR 11/28/17 Lurasidone HCl [Latuda -] 20 mg PO DAILY 11/28/17 Anemia: No Asthma: No Cancer: No Cardiac Disorders: No CVA: No COPD: No CHF: No DVT: No Dementia: No Diabetes: No GI Disorders: No Disorders: No HTN: Yes Hypercholesterolemia: Yes Liver Disease: No Psychiatric Problems: Yes (bipolar disorder) Seizures: No Thyroid Disease: No - Surgical History Abdominal Surgery: No Appendectomy: Yes Cardiac Surgery: No Cholecystectomy: No Lung Surgery: No Neurologic Surgery: No Orthopedic Surgery: No - Immunization History Immunization Up to Date: Yes - Psycho Social/Smoking Cessation Hx Smoking Status: Yes Smoking History: Never smoked Have you smoked in the past 12 months: No Number of Cigarettes Smoked Daily: 0 If you are a former smoker, when did you quit?: 2016 (13 mos ago) Information on smoking cessation initiated: No 'Breaking Loose' booklet given: 07/24/16 Hx Alcohol Use: No Drug/Substance Use Hx: No Substance Use Type: None Hx Substance Use Treatment: No Review of Systems - Review of Systems Able to Perform ROS?: Yes Comments:: 04/11/19 11:22 GENERAL/CONSTITUTIONAL: No fever or chills. No weakness. HEAD, EYES, EARS, NOSE AND THROAT: No change in vision. No ear pain or discharge. No sore throat. CARDIOVASCULAR: No chest pain, no shortness of breath, no loss of consciousness RESPIRATORY: No cough, wheezing, or hemoptysis. GASTROINTESTINAL: +Abdominal pain. +Nausea. +Vomiting. GENITOURINARY: No dysuria, frequency, or change in urination. MUSCULOSKELETAL: No joint or muscle swelling or pain. No neck or back pain. SKIN: No rash NEUROLOGIC: No vertigo, no change in strength/sensation. ENDOCRINE: No increased thirst. No abnormal weight change. HEMATOLOGIC/LYMPHATIC: No anemia, easy bleeding, or history of blood clots. ALLERGIC/IMMUNOLOGIC: No hives or skin allergy. All Other Systems: Reviewed and Negative *Physical Exam - Vital Signs Last Vital Signs Temp Pulse Resp BP Pulse Ox 97.7 F 92 H 18 128/81 95 04/11/19 10:14 04/11/19 10:14 04/11/19 10:14 04/11/19 10:14 04/11/19 10:14 - Physical Exam Comments: 04/11/19 11:23 GENERAL: Awake, alert, and fully oriented, in no acute distress. HEAD: No signs of trauma EYES: PERRLA, EOMI, sclera anicteric, conjunctiva clear ENT: Auricles normal inspection, hearing grossly normal, nares patent, oropharynx clear without exudates. Moist mucosa NECK: Nontender, no stepoffs, Normal ROM, supple, no lymphadenopathy, JVD, or masses LUNGS: Breath sounds equal, clear to auscultation bilaterally. No wheezes, and no crackles HEART: Regular rate and rhythm, normal S1 and S2, no murmurs, rubs or gallops ABDOMEN: + distended and tympanitic. Diffusely tender EXTREMITIES: Normal range of motion, no edema. No clubbing or cyanosis. No cords, erythema, or tenderness NEUROLOGICAL: Cranial nerves II through XII intact. 5/5 strength and sensation in all extremities, Normal speech, normal gait, normal cerebellar function SKIN: Warm, Dry, normal turgor, no rashes or lesions noted. ED Treatment Course - LABORATORY CBC & Chemistry Diagram: 04/11/19 11:30 04/11/19 11:30 Medical Decision Making - Medical Decision Making 04/11/19 11:56 68 M with abdominal pain, N+V. Pt distended on exam with tympany. Suspicious for SBO. No palpable masses/hernias. - Labs - CTAP - IVF, zofran, pain control 04/11/19 15:07 CT shows SBO Will attempt NGT placement 04/11/19 15:25 NGT placed Pt admitted to hospitalist Dr. Delgado consulted Discharge - Discharge Information Problems reviewed: Yes Clinical Impression/Diagnosis: SBO (small bowel obstruction), Vomiting with nausea, not intractable, Abdominal pain - Admission Yes - Follow up/Referral Referrals: Royal Shaw [Primary Care Provider] - - Patient Discharge Instructions - Post Discharge Activity
[2019-04-11 12:02] LABS: BASO % 0.2 % (0-2.0); HEMATOCRIT 36.4 % (35.4-49); HEMOGLOBIN 12.3 GM/dL (11.7-16.9); LYMPH % 11.7 % (8-40); MCH 30.5 pg (25.7-33.7); MCHC 33.8 g/dl (32.0-35.9); MEAN CELL VOLUME 90.1 fl (80-96); MEAN PLT VOLUME 9.6 fl (7.5-11.1); MONO % 13.8 % (3.8-10.2); NEUT % 69.3 % (42.8-82.8); PLATELET COUNT 171 K/MM3 (134-434); RBC 4.04 M/mm3 (4.00-5.60); WHITE BLOOD COUNT 8.3 K/mm3 (4.0-10.0)
[2019-04-11 12:13] LABS: INR 1.09 (0.83-1.09); PROTHROMBIN TIME (PATIENT) 12.9 SEC (9.7-13.0)
[2019-04-11 12:16] LABS: ACTIVATED PTT 31.2 SECONDS (25.2-36.5)
[2019-04-11 12:24] LABS: ALBUMIN 3.8 g/dl (3.4-5.0); ALK PHOS 109 U/L (45-117); ANION GAP 7 MMOL/L (8-16); BILIRUBIN,TOTAL 0.8 mg/dL (0.2-1); BLOOD UREA NITROGEN 43.5 mg/dL (7-18); CHLORIDE 105 mmol/L (98-107); CO2 28 mmol/L (21-32); GLUCOSE,RANDOM 155 mg/dL (74-106); PHOSPHOROUS 3.7 mg/dL (2.5-4.9); POTASSIUM 4.5 mmol/L (3.5-5.1); SGOT/AST 13 U/L (15-37); SGPT/ALT 23 U/L (13-61); SODIUM 140 mmol/L (136-145); TOT PROT 7.5 g/dl (6.4-8.2)
[2019-04-11 12:26] LABS: MAGNESIUM 1.6 mg/dL (1.8-2.4)
[2019-04-11] MEDS ORDERED: LIDOCAINE VISCOUS 2% ORAL/TOP 20 ML UNIT-DOSE CUP MM ONE (15:05)
[2019-04-11] MEDS ORDERED: LIDOCAINE VISCOUS 2% ORAL/TOP 20 ML UNIT-DOSE CUP ONE (15:06)
[2019-04-11] MEDS ORDERED: MAGNESIUM SULF 50% (8.12 MEQ/2 ML-1 GM VIAL) IVPB ONE (15:31)
--- NOTE | 2019-04-11 15:31 | HP ---
<Driss Atkins - Last Filed: 04/11/19 21:15> CHIEF COMPLAINT: PCP: HISTORY OF PRESENT ILLNESS: 68yo M with /ho CAD s/p stenting, bipolar disorder, and previous SBO (2017, adhesions with surgical intervention) who presented today with complaints of abdominal pain and multiple episodes of emesis. Pt was noted to be suffering frmo the above ailments for the past day with noted worsening prior to coming to ER. 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 Further information pulled from EMR and ER physician handoff. NGT was placed in ED with 100cc of drainage at time of exam. Pt comfortable without any active vomiting and without any notable pain. Pt denies any chest pain and shortness of breath at this time. Of note, pt has had previous complex hernia repair with mesh and appendectomy. During his previous SBO pt had medical management withou interval resolution of high-grade partial SBO with NGT decompression Recent Travel: None PAST MEDICAL HISTORY: CAD s/p cardiac stent (2015) LLE Olman Benito Pre-diabetic HLD Prior SBO (2016) Bipolar disorder PAST SURGICAL HISTORY: Appendectomy Hernia repair with mesh placement Social History: Smoking: Former (quit 2013 according to EMR) Alcohol: None [facility]: [facility] Allergies No Known Allergies Allergy (Verified 04/11/19 10:14) HOME MEDICATIONS: Home Medications Medication Instructions Recorded Aspirin [ASA -] 81 mg PO DAILY 04/20/17 Sertraline HCl [Zoloft -] 50 mg PO DAILY tablet 04/26/17 Divalproex *ER* [Depakote *ER* -] 250 mg PO DAILY 11/28/17 Fluphenazine Decanoate [Prolixin 25 mg IJ ASDIR 11/28/17 Decanoate (Long-Acting Injection) -] Lurasidone HCl [Latuda -] 20 mg PO DAILY 11/28/17 REVIEW OF SYSTEMS As per [facility] PHYSICAL EXAMINATION Vital Signs - 24 hr 04/11/19 10:14 Temperature 97.7 F Pulse Rate 92 H Respiratory 18 Rate Blood Pressure 128/81 O2 Sat by Pulse 95 Oximetry (%) GENERAL: Awake, alert, and oriented x3 but poor historian and flat affect HEENT: NC/AT, [place], sclera anicteric, EOMI without nystagmus, MMM, NGT in R nare with 100cc of drainage NECK: No JVD LUNGS: CTA bilaterally. No wheezes, and no crackles. No accessory muscle use. HEART: RRR, normal S1 and S2 without murmur ABDOMEN: Soft, tympanitic and minimally distended, tenderness in RLQ, hypoactive bs, no guarding, no rebound. EXTREMITIES: 2+ distal DP pulses, warm, well-perfused. No calf tenderness. No peripheral edema. PSYCHIATRIC: Cooperative. Flat affect SKIN: Warm, dry, no rashes or lesions noted Laboratory Results - last 24 hr 04/11/19 04/11/19 04/11/19 11:30 11:30 11:30 WBC 8.3 RBC 4.04 Hgb 12.3 Hct 36.4 MCV 90.1 MCH 30.5 MCHC 33.8 RDW 15.0 Plt Count 171 MPV 9.6 Absolute Neuts (auto) 5.8 Neutrophils % 69.3 Lymphocytes % 11.7 Monocytes % 13.8 H D Eosinophils % 5.0 H D Basophils % 0.2 Nucleated RBC % 0 PT with INR 12.90 INR 1.09 PTT (Actin FS) 31.2 Sodium 140 Potassium 4.5 Chloride 105 Carbon Dioxide 28 Anion Gap 7 L BUN 43.5 H Creatinine 2.0 H Est GFR (CKD-EPI)AfAm 38.60 Est GFR (CKD-EPI)NonAf 33.30 Random Glucose 155 H Lactic Acid Calcium 9.0 Phosphorus 3.7 Magnesium Total Bilirubin 0.8 AST 13 L ALT 23 Alkaline Phosphatase 109 Creatine Kinase 214 Creatine Kinase Index 1.7 CK-MB (CK-2) 3.8 H Troponin I < 0.02 Total Protein 7.5 Albumin 3.8 Lipase Blood Type Antibody Screen 04/11/19 04/11/19 04/11/19 11:30 11:30 11:30 WBC RBC Hgb Hct MCV MCH MCHC RDW Plt Count MPV Absolute Neuts (auto) Neutrophils % Lymphocytes % Monocytes % Eosinophils % Basophils % Nucleated RBC % PT with INR INR PTT (Actin FS) Sodium Potassium Chloride Carbon Dioxide Anion Gap BUN Creatinine Est GFR (CKD-EPI)AfAm Est GFR (CKD-EPI)NonAf Random Glucose Lactic Acid 1.6 Calcium Phosphorus Magnesium 1.6 L Total Bilirubin AST ALT Alkaline Phosphatase Creatine Kinase Creatine Kinase Index CK-MB (CK-2) Troponin I Total Protein Albumin Lipase 82 Blood Type O NEGATIVE Antibody Screen Negative Active Medications Acetaminophen (Ofirmev Injection -) 1,000 mg IVPB Q6H PRN PRN Reason: PAIN LEVEL 6-10 Lactated Ringer's (Lactated Ringers Solution) 1,000 mls @ 83 mls/hr IV ASDIR [facility] Last Admin: 04/11/19 17:03 Dose: 83 mls/hr Valproate Sodium (Depacon Injection -) 125 mg IVPB BID [facility] ASSESSMENT/PLAN: Small Bowel Obstruction Acute renal insufficiency HypoMagnesemia History of CAD s/p cardiac stent (2016) History of LLE Olmananselmo Benito History of Pre-diabetic History of HLD Bipolar disorder --NGT decompression; monitor output and serial abdominal exams --Surgery consultation appreciated --Imaging reviewed: Transition point noted on imaging --Holding ASA in lieu of ? surgical procedure --Hold Zoloft and Latuda as not high-priority medications with no IV substitutes --Changed Depakote to Depacon 125mg BID IV --Strict NPO currently --Can use tylenol for pain; avoid narcotics to avoid superimposed ileus to suspicious mechanical obstruction --CHANTELL likely prerenal azotemia --Renal U/s to r/o hydronephrosis and possible obstructive cause --FeNa to be calculated: urine creatine and urine electrolytes to be collected --Can monitor glucose and get A1c with morning labs FEN: Fluids: LR @83cc/hr Electrolyte abnormalities: HypoMg (repleted 2gm MgSulfate) Nutrition: Strict NPO PPX: DVT - SCDs for now GI - Not indicated dispo: M/S admit Case discussed Driss Atkins DO - IM PGY-3 Visit type - Emergency Visit Emergency Visit: Yes ED Registration Date: 04/11/19 Care time: The patient presented to the Emergency Department on the above date and was hospitalized for further evaluation of their emergent condition. - New Patient This patient is new to me today: Yes Date on this admission: 04/11/19 - Critical Care Critical Care patient: No ATTENDING PHYSICIAN STATEMENT I saw and evaluated the patient. I reviewed the resident's note and discussed the case with the resident. I agree with the resident's findings and plan as documented. SUBJECTIVE: OBJECTIVE: ASSESSMENT AND PLAN: <David Verduzco - Last Filed: 04/13/19 07:49> Seen and examineed; agree with above aside from as supplemented by myself. Independently verified all graves historical and physical exam findings as well as all labs and diagnostic findings. Discussed at length with resident team and indicated consulting services. 60 minutes spent in the care of this patient. Agree with provided resident history; mostly obtained from ancillary sources but tells me that his historical findings are accurate and he hasn't passed flatus or had a BM yet. Couldnt obtain ROS due to underlying cognative issues that are known and chronic VS, labs, imaging noted NAD, AAOx1-2 lacks capacity, in bed with NGT inserted NC AT EOMI PERRLA HR wnl, s1/2+ No FND moves all extremities NT ND BS reduced to absent Trachea midline without obvious lymphadenopathy Skin without new rashes or breakdown noted Not agitated; peculiar speech pattern with limited insight and restricted judgment. No active SI/HI, no hallucinations. Obtaining AXR flat and upright series per sgy Echo pending A/P Patient presents with a SBO and is found to have ongoing abdominal pain with history of prior abdominal surgieries. 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 He will be admitted to the medicine service with surgical consultation. EKG, preop labs, and assessment will be preformed. Problems include: -Small bowel obstruction -CHANTELL (likely prerenal given presentation; agressive hydration then recheck) -Underlying psychiatric disorder limiting capacity (schizophrenia; monitor QTc and continue home medications. Consent will need to be obtained via proper channels and HCP paperwork must be identified within his chart prior to proceeding with surgical intervention) -History of CAD s/p PCI 2015 (review old records, not currently on plavix. Risk assessment prior to operation. Consider echo given risks) -Hx HLD (Statin use noted with no apparent lipid followup in >1 year though he have a previously high LDL and is on antipsychotic medications. Followup lipid pannel; would be fasting technically as NPO with the SBO) -HypoMg (Aggressively replete given antipsychotic use; spoke to resident regarding documenting QTc. Followup repeat levels). Full code ATTENDING PHYSICIAN STATEMENT I saw and evaluated the patient. I reviewed the resident's note and discussed the case with the resident. I agree with the resident's findings and plan as documented. SUBJECTIVE: OBJECTIVE: ASSESSMENT AND PLAN:
--- NOTE | 2019-04-11 16:09 | CONSULT ---
- Consultation REQUESTING PROVIDER: General Surgery - Derick Delgado CONSULT REQUEST: We have been asked to surgically evaluate this patient for SBO. PCP: David Verduzco MD Limitations to Obtaining History: Patient Poor Historian HPI: Called to evaluate 68 yo male w/ PMHx as noted below. Presents to [facility] ED from NH/Assisted Living w/ c/o ABD pain with n/v x 1 day. States he's had this in the past. Multiple hospital visits for abd pain/discomfort. Treated conservatively. Positive surgical history of appendectomy. Abd CT scan identified SBO w/ zone of transition in RLQ, distended stomach. NGT inserted by ED MD. Denies fever, chills, cp, palpitations, sob, hardy, dysuria, hematuria, melena or hematochazia. Denies loss of appetite or weight change. PMHx: Obesity, HTN, HLD, Constipation, Fatty Liver, CAD (s/p coronary stent at [facility]), Bipolar Disorder, Nocturia, SBO 2016, Chronic LBP, Huntley-Schlatter disease (not currently active) in knees), Diabetes Mellitus (prediabetic) PSHx: Right inguinal hernia repair. Appendectomy, Colonoscopy, Upper Endoscopy Home Meds Aspirin [ASA -] 81 mg PO DAILY 04/20/17 Sertraline HCl [Zoloft -] 50 mg PO DAILY tablet 04/26/17 Divalproex *ER* [Depakote *ER* -] 250 mg PO DAILY 11/28/17 Fluphenazine Decanoate [Prolixin Decanoate (Long-Acting Injection) -] 25 mg IJ ASDIR 11/28/17 Lurasidone HCl [Latuda -] 20 mg PO DAILY 11/28/17 Allergies: NKDA ROS: CONSTITUTIONAL: Absent: diaphoresis, generalized weakness, malaise CARDIOVASCULAR: Absent: syncope, irregular heart rate, lightheadedness, peripheral edema RESPIRATORY: Absent: cough, wheezing, stridor, hemoptysis GASTROINTESTINAL: Absent: see hpi GENITOURINARY: Absent: frequency, urgency, hesitancy, flank pain, genital pain MUSCULOSKELETAL: Absent: myalgia, arthralgia, joint swelling, back pain, neck pain SKIN: Absent: rash, itching, pallor HEMATOLOGIC/IMMUNOLOGIC: Absent: easy bleeding, easy bruising, lymphadenopathy NEUROLOGIC: Absent: headache, focal weakness, paresthesias, dizziness, unsteady gait, seizure, mental status changes PSYCHIATRIC: Absent: anxiety, depression, suicidal or homicidal ideation, hallucinations. PE: GENERAL: Awake, alert, in nad HEAD: nc. at. ENT: NGT on LWCS LUNGS: cta bilat HEART: rrr ABDOMEN: obese. soft, distended, bowel sounds hypoactive. no guarding, no rebound, no palpable masses. Midline vertical scar (well healed) from ~ 1" below umbilicus to symphis pubis (approach for appendectomy?, patient doesn't remember. I didn't see any small scars left lateral to indicate laprascopic approach) MUSCULOSKELETAL: No CVAT bilat UE: 2+ pulses, warm, well-perfused. No cyanosis. Cap refill <2 seconds. No peripheral edema. LE: 2+ pulses, warm, well-perfused. No calf tenderness. No peripheral edema. PSYCH: Cooperative. Good eye contact. Appropriate mood and affect. Last Vital Signs Temp Pulse Resp BP Pulse Ox 97.7 F 92 H 18 128/81 95 04/11/19 10:14 04/11/19 10:14 04/11/19 10:14 04/11/19 10:14 04/11/19 10:14 CBC, BMP 04/11/19 11:30 04/11/19 11:30 Blood Type Blood Type O NEGATIVE 04/11/19 11:30 INR, PTT INR 1.09 (0.83-1.09) 04/11/19 11:30 Troponin 04/11/19 11:30 Troponin I < 0.02 Problem List - Problems (1) SBO (small bowel obstruction) Assessment/Plan: 68 yo male with recurrent SBO. NPO IVF GI PPX DVT PPX Cont NGT to [facility] Trend I/O's BUN/Cr 45/2.3 --> no h/o renal injury or CKD. Most likely due to dehydration associated w/ poor PO intake and vomiting...cont to monitor Serial ABD exams Serial AXR (comparative studies) Treat conservatively at this time. If fails to progress, surgery may be indicated Tight glycemic control. Surgery Team to cont following Above plan discussed w/ Dr. Delgado and agrees Code(s): K56.609 - UNSP INTESTNL OBST, UNSP TO PARTIAL VERSUS COMPLETE OBST (2) Abdominal pain Code(s): R10.9 - UNSPECIFIED ABDOMINAL PAIN (3) Bipolar 1 disorder Code(s): F31.9 - BIPOLAR DISORDER, UNSPECIFIED (4) HTN (hypertension) Code(s): I10 - ESSENTIAL (PRIMARY) HYPERTENSION (5) Prediabetes Code(s): R73.03 - PREDIABETES (6) Obesity (BMI 30-39.9) Code(s): E66.9 - OBESITY, UNSPECIFIED Visit type - Case Type Case Type: ED Admission - Emergency Emergency Visit: Yes ED Registration Date: 04/11/19 Care time: The patient presented to the Emergency Department on the above date and was hospitalized for further evaluation of their emergent condition. - New patient This patient is new to me today: Yes Date on this admission: 04/11/19
[2019-04-11] MEDS ORDERED: MAGNESIUM SULF 50% (8.12 MEQ/2 ML-1 GM VIAL) ONE (16:49)
[2019-04-11] MEDS: LACTATED RINGERS SOLUTION 1,000 ML IV SCH (17:03)
[2019-04-11 19:42] VITALS: BMI 32.4
[2019-04-11] MEDS: VALPROATE SODIUM 500 MG/5 ML VIAL IVPB SCH (21:49)
[2019-04-12 08:57] LABS: HEMATOCRIT 33.9 % (35.4-49); HEMOGLOBIN 11.5 GM/dL (11.7-16.9); MCH 30.6 pg (25.7-33.7); MEAN CELL VOLUME 90.1 fl (80-96); MEAN PLT VOLUME 9.5 fl (7.5-11.1); PLATELET COUNT 157 K/MM3 (134-434); RBC 3.76 M/mm3 (4.00-5.60); RDW 15.4 % (11.9-15.9); WHITE BLOOD COUNT 6.6 K/mm3 (4.0-10.0)
--- NOTE | 2019-04-12 09:04 | PN ---
Progress Note (short form) - Note Progress Note: Pt seen and examined. Reports he is feeling much better than yesterday. Abdomen feels improved after placement of NGT. No flatus. Voiding without issue. Has not been oob. NPO. Denies cp/sob, n/v/d. Vital Signs Temp 98.8 F 04/12/19 05:44 Pulse 103 H 04/12/19 05:44 Resp 20 04/12/19 05:44 BP 133/77 04/12/19 05:44 Pulse Ox 98 04/11/19 21:00 Intake & Output 04/11/19 04/11/19 04/12/19 11:59 23:59 11:59 Intake Total 50 1000 Output Total 500 600 Balance -450 400 Weight 222 lb 213 lb 9.6 oz Intake: IV 1000 Lactated Ringers Solution 1000 1,000 ml @ 83 mls/hr IV ASDIR ATUL Rx#:[id number] IVPB 50 Oral 0 0 Output: Gastric Drainage 600 Urine 500 Void 500 Other: Voiding Method Urinal Bowel Movement No Yes # Bowel Movements 1 Height 5 ft 8 in 5 ft 8 in Body Mass Index (BMI) 33.7 32.4 Weight Measurement Method Built in [place] Weight Measurement Method Est/Stated by Patient CBC, BMP 04/12/19 07:57 Gen: awake, alert, nad ENT: NGT in place on continuous low wall suction with 600ml light brown output in reservoir Abdo: soft, +distended, minimal ttp in all quadrants. No rebound or guarding. A/P: 68 y/o M w/ PMHx CAD s/p stenting, bipolar disorder, and previous SBO (2017 , adhesions with surgical intervention) admitted yesteday with complaints of abdominal pain and multiple episodes of emesis, found to have SBO w/ zone of transition in RLQ, s/p NGT placement in ED. afebrile, vss, AM labs pending NGT in place with 600ml output overnight NPO, may have some ice chips Repeat Xray in AM (flat and upright-MUST go down to radiology for study) IVF GI PPX DVT PPX Cont NGT to [facility] Trend I/O's Monitor creatinine Serial ABD exams Serial AXR (comparative studies) Treat conservatively at this time. If fails to progress, surgery may be indicated Tight glycemic control. Surgery Team to cont following pt seen and examined with attending Dr Delgado
[2019-04-12 09:20] LABS: ALBUMIN 3.4 g/dl (3.4-5.0); BILIRUBIN,TOTAL 0.6 mg/dL (0.2-1); BLOOD UREA NITROGEN 29.5 mg/dL (7-18); CALCIUM 8.8 mg/dL (8.5-10.1); CREATININE 1.5 mg/dL (0.55-1.3); MAGNESIUM 2.2 mg/dL (1.8-2.4); PHOSPHOROUS 2.8 mg/dL (2.5-4.9)
--- NOTE | 2019-04-12 09:22 | PN ---
Progress Note (short form) - Note Progress Note: HPI: No acute events overnight. Pt reports feeling markedly improved in abdominal distention and pain. Pt has voided successfully. Has not been out of bed just yet. Denies any SOB, CP, palpitations, n/v Vital Signs Temperature 98.8 F 04/12/19 05:44 Pulse Rate 103 H 04/12/19 05:44 Respiratory Rate 20 04/12/19 05:44 Blood Pressure 133/77 04/12/19 05:44 O2 Sat by Pulse Oximetry (%) 98 04/11/19 21:00 PE: GENERAL: Awake, alert, and oriented x3 HEENT: NC/AT, WALDEMAR, sclera anicteric, MMM, NGT in R nare LUNGS: CTA bilaterally. No wheezes, and no crackles. No accessory muscle use. HEART: RRR, normal S1 and S2 without murmur ABDOMEN: Soft, distention decreased, TTP RLQ, hypoactive BS, no guarding, no rebound EXTREMITIES: 2+ distal DP pulses, warm, well-perfused. No calf tenderness. No peripheral edema. PSYCHIATRIC: Cooperative. Flat affect SKIN: Warm, dry, no rashes or lesions noted CBC, BMP 04/12/19 07:57 04/12/19 07:57 Active Medications Acetaminophen (Ofirmev Injection -) 1,000 mg IVPB Q6H PRN PRN Reason: PAIN LEVEL 6-10 Lactated Ringer's (Lactated Ringers Solution) 1,000 mls @ 83 mls/hr IV ASDIR [facility] Last Admin: 04/11/19 17:03 Dose: 83 mls/hr Valproate Sodium (Depacon Injection -) 125 mg IVPB BID [facility] Last Admin: 04/11/19 21:49 Dose: 125 mg Assessment and Plan: Small Bowel Obstruction Acute renal insufficiency (improving) Normocytic anemia HypoMagnesemia (resolved) History of CAD s/p cardiac stent (2015) History of LLE [place]man [place] History of Pre-diabetic History of HLD Bipolar disorder --Continue NGT decompression as appears to be improving SBO --Surgery consultation appreciated --Hold all nonessential PO medications --Continue Depacon 125mg BID IV --Hold Zoloft and Latuda as not high-priority medications with no IV substitutes --Strict NPO to continue --AXR pending currently; to f/u bowel patterning --Can use tylenol for pain; avoid narcotics to avoid superimposed ileus to suspicious mechanical obstruction --CHANTELL likely prerenal azotemia; improving with IVF --Renal U/s to r/o hydronephrosis --FeNa to be calculated: urine creatinine and urine electrolytes to be collected --Normocytic anemia likely related to hemoconcentration on initial labs alongside of dilutional effect from maintenance fluid; no source of bleed currently --A1c 6.2 (remains pre-diabetic) FEN: Fluids: LR @83cc/hr Electrolyte abnormalities: None Nutrition: Strict NPO PPX: DVT - SCDs for now GI - Not indicated Dispo: M/S monitoring Case discussed with Dr. Luba Atkins, DO - IM PGY-3 <Driss Atkins - Last Filed: 04/12/19 11:04> - Note Progress Note: Seen and examineed; agree with above aside from as supplemented by myself. Independently verified all graves historical and physical exam findings as well as all labs and diagnostic findings. Discussed at length with resident team and indicated consulting services. 35 minutes spent in the care of this patient. Abdominal pain without flatus or BM noted; poor historian. Not agitated and no further overnight events noted by nursing staff. Couldnt obtain ROS due to underlying cognative issues that are known and chronic VS, labs, imaging noted NAD, AAOx1-2 lacks capacity, in bed with NGT inserted NC AT EOMI PERRLA HR wnl, s1/2+ No FND moves all extremities NT ND BS not present today Trachea midline without obvious lymphadenopathy Skin without new rashes or breakdown noted Not agitated; peculiar speech pattern with limited insight and restricted judgment. No active SI/HI, no hallucinations. Obtaining AXR flat and upright series per sgy Echo pending A/P Patient presents with a SBO and is undergoing nasogastric decompression; followup abdominal imaging per surgery. Absent BS today and no flatus; concerned he may need underlying procedure. D/W resident and surgical services. Problems include: -Small bowel obstruction -CHANTELL (prerenal likely; FU renal US and consult nephro if not improved) -Underlying psychiatric disorder limiting capacity (schizophrenia; monitor QTc and continue home medications. Consent will need to be obtained via proper channels and HCP paperwork must be identified within his chart prior to proceeding with surgical intervention) -History of CAD s/p PCI 2016 (review old records, not currently on plavix. Risk assessment prior to operation. Consider echo given risks) -Hx HLD (Statin use noted with no apparent lipid followup in >1 year though he have a previously high LDL and is on antipsychotic medications. Followup lipid pannel; would be fasting technically as NPO with the SBO) -HypoMg (Aggressively replete given antipsychotic use; spoke to resident regarding documenting QTc. Followup repeat levels). Full code <David Verduzco - Last Filed: 04/13/19 07:51>
[2019-04-12] MEDS: VALPROATE SODIUM 500 MG/5 ML VIAL IVPB SCH ×2 (09:43→21:22)
[2019-04-12] MEDS: ACETAMINOPHEN 1000 MG/100 ML VIAL (NON FORMULARY) IVPB PRN ×2 (09:44→22:39)
[2019-04-12] MEDS: LACTATED RINGERS SOLUTION 1,000 ML IV SCH (09:44)
[2019-04-12] MEDS ORDERED: VALPROATE SODIUM 500 MG/5 ML VIAL IVPB SCH (10:00)
--- NOTE | 2019-04-12 12:40 | EKG ---
Test Reason : Blood Pressure : / mmHG Vent. Rate : 088 BPM Atrial Rate : 088 BPM P-R Int : 162 ms QRS Dur : 092 ms QT Int : 362 ms P-R-T Axes : 032 049 024 degrees QTc Int : 438 ms NORMAL SINUS RHYTHM LOW VOLTAGE QRS CANNOT RULE OUT ANTEROSEPTAL INFARCT (CITED ON OR BEFORE 20-JUL-2011) ABNORMAL ECG WHEN COMPARED WITH ECG OF 28-NOV-2017 10:22, QUESTIONABLE CHANGE IN INITIAL FORCES OF ANTEROSEPTAL LEADS Confirmed by ALISSON SWANSON MD ([id number]) on 04/12/2019 12:40:05 PM Referred By: Confirmed By:ALISSON SWANSON MD
[2019-04-12] MEDS: PANTOPRAZOLE SODIUM 40 MG VIAL IVPUSH SCH (13:47)
[2019-04-12] MEDS ORDERED: PT OWN MED DRAWER 7, Y5N ONE (21:12)
[2019-04-13] MEDS: LACTATED RINGERS SOLUTION 1,000 ML IV SCH (03:30)
[2019-04-13] MEDS ORDERED: PT OWN MED DRAWER 7, Y5N ONE ×2 (06:02→21:21)
--- NOTE | 2019-04-13 07:54 | PN ---
Teaching Attending Note Name of Resident: Driss Atkins ATTENDING PHYSICIAN STATEMENT Seen and examined; agree with above aside from as supplemented by myself. Independently verified all graves historical and physical exam findings as well as all labs and diagnostic findings. Discussed at length with resident team and indicated consulting services. 60 minutes spent in the care of this patient. I saw and evaluated the patient. I reviewed the resident's note and discussed the case with the resident. I agree with the resident's findings and plan as documented. Tachy and tachypnic this AM on my assessment prior to rounding with resident. Placing on increased rate IVF and checking lactate alongside AM labs. Followup further imaging and discuss with surgical services. Denies flatus ROS not reliable as previously documented. O: VS, labs, imaging noted NAD, AAOx1-2 lacks capacity, in bed with NGT inserted NC AT EOMI PERRLA HR wnl, s1/2+ No FND moves all extremities NT ND BS reduced to absent Trachea midline without obvious lymphadenopathy Skin without new rashes or breakdown noted Not agitated; peculiar speech pattern with limited insight and restricted judgment. No active SI/HI, no hallucinations. A/P Patient presents with a SBO and is found to have ongoing abdominal pain with history of prior abdominal surgieries. He is a resident of a [facility] care facility and lacks capacity due to his underlying psychiatric diagnosis. He will be admitted to the medicine service with surgical consultation. EKG, preop labs, and assessment will be preformed. Problems include: -Small bowel obstruction -CHANTELL (likely prerenal given presentation; agressive hydration then recheck) -Underlying psychiatric disorder limiting capacity (schizophrenia; monitor QTc and continue home medications. Consent will need to be obtained via proper channels and HCP paperwork must be identified within his chart prior to proceeding with surgical intervention) -History of CAD s/p PCI 2015 (review old records, not currently on plavix. Risk assessment prior to operation. Consider echo given risks) -Hx HLD (Statin use noted with no apparent lipid followup in >1 year though he have a previously high LDL and is on antipsychotic medications. Followup lipid pannel; would be fasting technically as NPO with the SBO) -HypoMg (Aggressively replete given antipsychotic use; spoke to resident regarding documenting QTc. Followup repeat levels). Full code
[2019-04-13 08:34] LABS: HEMATOCRIT 34.3 % (35.4-49); HEMOGLOBIN 11.4 GM/dL (11.7-16.9); MCH 30.7 pg (25.7-33.7); MCHC 33.3 g/dl (32.0-35.9); MEAN CELL VOLUME 92.2 fl (80-96); MEAN PLT VOLUME 9.6 fl (7.5-11.1); PLATELET COUNT 172 K/MM3 (134-434); RBC 3.72 M/mm3 (4.00-5.60); RDW 15.5 % (11.9-15.9); WHITE BLOOD COUNT 9.4 K/mm3 (4.0-10.0)
--- NOTE | 2019-04-13 08:37 | PN ---
Progress Note (short form) - Note Progress Note: Pt seen and examined. Reports he is feeling well. Began passing gas last night, reports significant amount. NGT in place. Voiding without issue. Has not been oob. NPO. Denies cp/sob, n/v/d. Vital Signs Temp 99.3 F 04/13/19 05:53 Pulse 101 H 04/13/19 05:53 Resp 21 H 04/13/19 05:53 BP 117/84 04/13/19 05:53 Pulse Ox 96 04/12/19 21:00 Intake & Output 04/12/19 04/12/19 04/13/19 11:59 23:59 11:59 Intake Total 1000 550 996 Output Total 600 600 Balance 400 550 396 Intake: IV 1000 996 Lactated Ringers Solution 1000 996 1,000 ml @ 83 mls/hr IV ASDIR ATUL Rx#:[id number] IVPB 550 Oral 0 0 Output: Gastric Drainage 600 600 Other: Voiding Method Urinal Urinal Bowel Movement Yes No # Bowel Movements 1 0 Gen: awake, alert, nad ENT: NGT in place on continuous low wall suction with 600ml light brown output in reservoir Abdo: soft, +distended, minimal ttp in all quadrants. No rebound or guarding. + bowel sounds A/P: 68 y/o M w/ PMHx CAD s/p stenting, bipolar disorder, and previous SBO (2017 , adhesions with surgical intervention) admitted yesterday with complaints of abdominal pain and multiple episodes of emesis, found to have SBO w/ zone of transition in RLQ, s/p NGT placement in ED. Febrile to 100F overnight, remainder of vss, AM labs pending NGT in place with approx 600ml output overnight Repeat xray reviewed with attending, slightly improved from yesterday Passing flatus NPO, may have some ice chips Repeat Xray kenyetta AM (flat and upright-MUST go down to radiology for study) IVF GI PPX DVT PPX Cont NGT to LWCS Trend I/O's Monitor creatinine Serial ABD exams Tight glycemic control. Surgery Team to cont following d/w attending Dr Delgado
[2019-04-13 09:04] LABS: CHOLESTEROL 165 mg/dL (50-200); HDL CHOLESTEROL 38 mg/dL (40-60); LDL CHOLESTEROL (ONLY SJRH) 85 mg/dL (5-100); TRIGLYCERIDES 250 mg/dL (0-150)
--- NOTE | 2019-04-13 09:11 | PN ---
Progress Note (short form) - Note Progress Note: HPI: No acute events overnight. Tachycardia noted earlier with slight increase in pain; given bolus. Pt at time of my exam is sleeping comfortably with tachycardia resolved. Denies abdominal pain at this time when awoken. Denies any SOB, CP, palpitations, n/v Vital Signs Temperature 98.4 F 04/13/19 14:00 Pulse Rate 94 H 04/13/19 14:00 Respiratory Rate 20 04/13/19 14:00 Blood Pressure 128/76 04/13/19 14:00 O2 Sat by Pulse Oximetry (%) 93 L 04/13/19 09:00 PE: GENERAL: Awake, alert, and oriented x3 HEENT: NC/AT, WALDEMAR, sclera anicteric, MMM, NGT in R nare LUNGS: CTA bilaterally. No wheezes, and no crackles. No accessory muscle use. HEART: RRR, normal S1 and S2 without murmur ABDOMEN: Soft, distention decreased, TTP RLQ, hypoactive BS, no guarding, no rebound EXTREMITIES: 2+ distal DP pulses, warm, well-perfused. No calf tenderness. No peripheral edema. PSYCHIATRIC: Cooperative. Flat affect SKIN: Warm, dry, no rashes or lesions noted CBC, BMP 04/13/19 07:25 04/13/19 07:25 Active Medications Acetaminophen (Ofirmev Injection -) 1,000 mg IVPB Q6H PRN PRN Reason: PAIN LEVEL 6-10 Last Admin: 04/12/19 22:39 Dose: 1,000 mg Potassium Chloride 10 meq/ (Sodium Chloride) 1,005 mls @ 100 mls/hr IVPB Q10H [facility] Last Admin: 04/13/19 11:42 Dose: 100 mls/hr Pantoprazole Sodium (Protonix Iv) 40 mg IVPUSH DAILY [facility] Last Admin: 04/13/19 10:37 Dose: 40 mg Valproate Sodium (Depacon Injection -) 125 mg IVPB BID [facility] Last Admin: 04/13/19 10:37 Dose: 125 mg Assessment and Plan: Small Bowel Obstruction Acute renal insufficiency (improving) Normocytic anemia HypoMagnesemia (resolved) History of CAD s/p cardiac stent (2015) History of LLE [place] History of Pre-diabetic History of HLD Bipolar disorder --Continue NGT decompression as appears to be improving SBO --Surgery consultation appreciated --Hold all nonessential PO medications --Continue Depacon 125mg BID IV --Hold Zoloft and Latuda as not high-priority medications with no IV substitutes --Strict NPO to continue --AXR repeated today; to f/u bowel patterning --Can use tylenol for pain; avoid narcotics to avoid superimposed ileus to suspicious mechanical obstruction --CHANTELL likely prerenal azotemia; improving with IVF --Renal U/s to r/o hydronephrosis --FeNa to be calculated: urine creatinine and urine electrolytes to be collected --Normocytic anemia likely related to hemoconcentration on initial labs alongside of dilutional effect from maintenance fluid; no source of bleed currently --A1c 6.2 (remains pre-diabetic) FEN: Fluids: Electrolyte abnormalities: None Nutrition: Strict NPO PPX: DVT - SCDs for now GI - Not indicated Dispo: M/S monitoring Case discussed with Dr. Luba Atkins, DO - IM PGY-3 <Driss Atkins - Last Filed: 04/13/19 19:14> - Note Progress Note: Had BM-SBO likely resolving. Communicated to surgical services. Discussed with consultants and resident team. Agree with above assessment and plan aside from as otherwise documented by myself. <David Verduzco - Last Filed: 04/14/19 18:03>
[2019-04-13 09:12] LABS: BLOOD UREA NITROGEN 23.5 mg/dL (7-18); CREATININE 1.4 mg/dL (0.55-1.3); MAGNESIUM 2.3 mg/dL (1.8-2.4); POTASSIUM 3.7 mmol/L (3.5-5.1)
[2019-04-13] MEDS: PANTOPRAZOLE SODIUM 40 MG VIAL IVPUSH SCH (10:37)
[2019-04-13] MEDS: VALPROATE SODIUM 500 MG/5 ML VIAL IVPB SCH ×2 (10:37→21:27)
[2019-04-13] MEDS: POTASSIUM CHLORIDE 10 MEQ in SODIUM CHLORIDE 0.45% 1,000 ML IVPB SCH ×2 (11:42→19:45)
[2019-04-14] MEDS: POTASSIUM CHLORIDE 10 MEQ in SODIUM CHLORIDE 0.45% 1,000 ML IVPB SCH ×2 (01:47→09:38)
[2019-04-14 09:15] LABS: HEMATOCRIT 32.9 % (35.4-49); HEMOGLOBIN 11.1 GM/dL (11.7-16.9); MCH 30.9 pg (25.7-33.7); MCHC 33.8 g/dl (32.0-35.9); MEAN CELL VOLUME 91.4 fl (80-96); MEAN PLT VOLUME 9.2 fl (7.5-11.1); PLATELET COUNT 159 K/MM3 (134-434); RDW 14.9 % (11.9-15.9); WHITE BLOOD COUNT 10.1 K/mm3 (4.0-10.0)
[2019-04-14] MEDS: PANTOPRAZOLE SODIUM 40 MG VIAL IVPUSH SCH (09:38)
[2019-04-14] MEDS: VALPROATE SODIUM 500 MG/5 ML VIAL IVPB SCH ×2 (09:38→22:02)
[2019-04-14 09:48] LABS: BLOOD UREA NITROGEN 23.1 mg/dL (7-18); CALCIUM 9.5 mg/dL (8.5-10.1); CREATININE 1.3 mg/dL (0.55-1.3)
--- NOTE | 2019-04-14 10:58 | PN ---
Progress Note (short form) - Note Progress Note: He is improving no distress and no fever or chills he is hungry and drinking fluids vs Vital Signs Period Temp Pulse Resp BP Sys/Reed Pulse Ox Last 24 Hr 97.3 F-98.4 F 81-97 20-20 121-137/69-76 93 NAD, AAOx1-2 lacks capacity, in bed with NGT inserted NC AT EOMI PERRLA HR wnl, s1/2+ No FND moves all extremities NT ND BS reduced to absent Trachea midline without obvious lymphadenopathy Skin without new rashes or breakdown noted Not agitated; peculiar speech pattern with limited insight and restricted judgment. No active SI/HI, no hallucinations. CBC, BMP 04/14/19 08:35 04/14/19 06:00 A/P Patient presents with a SBO and is found to have ongoing abdominal pain with history of prior abdominal surgieries. He is a resident of a [facility] care facility and lacks capacity due to his underlying psychiatric diagnosis. done surgical consultation. pt is better will star him on clear liquid diet and if tolerated and will advance to regular Current Medications Acetaminophen (Ofirmev Injection -) 1,000 mg IVPB Q6H PRN PRN Reason: PAIN LEVEL 6-10 Last Admin: 04/12/19 22:39 Dose: 1,000 mg Potassium Chloride 10 meq/ (Sodium Chloride) 1,005 mls @ 100 mls/hr IVPB Q10H [facility] Last Admin: 04/14/19 09:38 Dose: 100 mls/hr Pantoprazole Sodium (Protonix Iv) 40 mg IVPUSH DAILY [facility] Last Admin: 04/14/19 09:38 Dose: 40 mg Valproate Sodium (Depacon Injection -) 125 mg IVPB BID [facility] Last Admin: 04/14/19 09:38 Dose: 125 mg Visit type - Emergency Visit Emergency Visit: Yes ED Registration Date: 04/11/19 Care time: The patient presented to the Emergency Department on the above date and was hospitalized for further evaluation of their emergent condition. - New Patient This patient is new to me today: Yes Date on this admission: 04/14/19 - Critical Care Critical Care patient: No - Discharge Referral Referred to [facility] Med P.C.: No
--- NOTE | 2019-04-14 11:58 | PN ---
Progress Note (short form) - Note Progress Note: Attending Surgeon No c/o; passing flatus VSS AF abdo-soft;slightly tympanitic; non tender; o/w negative AXR-no a/f levels; air in the colon IMP:resolving SBO PLAN: Advance diet from NPO as tolerated. Derick Delgado MD FACS
[2019-04-15] MEDS: POTASSIUM CHLORIDE 10 MEQ in SODIUM CHLORIDE 0.45% 1,000 ML IVPB SCH ×2 (01:49→21:44)
[2019-04-15] MEDS ORDERED: PT OWN MED DRAWER 7, Y5N ONE ×2 (09:54→21:42)
[2019-04-15] MEDS: VALPROATE SODIUM 500 MG/5 ML VIAL IVPB SCH ×2 (10:07→21:43)
[2019-04-15] MEDS: PANTOPRAZOLE SODIUM 40 MG VIAL IVPUSH SCH (10:07)
--- NOTE | 2019-04-15 11:43 | PN ---
Progress Note (short form) - Note Progress Note: He is improving no distress and no fever or chills he is hungry and drinking fluids Patient is seen by surgery and recommended that advance diet as tolerated He is passing gas he has no stomach pain. Vital Signs Period Temp Pulse Resp BP Sys/Reed Pulse Ox Last 24 Hr 97.3 F-97.5 F 83-88 20-20 112-149/61-99 95 vs NAD, AAOx1-2 lacks capacity, in bed with NGT inserted NC AT EOMI PERRLA HR wnl, s1/2+ No FND moves all extremities NT ND BS reduced to absent Trachea midline without obvious lymphadenopathy Skin without new rashes or breakdown noted Not agitated; peculiar speech pattern with limited insight and restricted judgment. No active SI/HI, no hallucinations. CBC, BMP 04/14/19 08:35 04/14/19 06:00 A/P Patient presents with a SBO and is found to have ongoing abdominal pain with history of prior abdominal surgieries. He is a resident of a [facility] and lacks capacity due to his underlying psychiatric diagnosis. done surgical consultation. pt is better Patient comfortable has no abdominal pain at this time seen by surgery yesterday recommended to advance the diet at this time will advance diet to regular. Also I ordered physical therapy on him and he should be ready to go home in a day or 2 if he tolerate the food back to his place of living. Current Medications Acetaminophen (Ofirmev Injection -) 1,000 mg IVPB Q6H PRN PRN Reason: PAIN LEVEL 6-10 Last Admin: 04/12/19 22:39 Dose: 1,000 mg Potassium Chloride 10 meq/ (Sodium Chloride) 1,005 mls @ 100 mls/hr IVPB Q10H [facility] Last Admin: 04/14/19 09:38 Dose: 100 mls/hr Pantoprazole Sodium (Protonix Iv) 40 mg IVPUSH DAILY [facility] Last Admin: 04/14/19 09:38 Dose: 40 mg Valproate Sodium (Depacon Injection -) 125 mg IVPB BID [facility] Last Admin: 04/14/19 09:38 Dose: 125 mg Visit type - Emergency Visit Emergency Visit: Yes ED Registration Date: 04/11/19 Care time: The patient presented to the Emergency Department on the above date and was hospitalized for further evaluation of their emergent condition. - New Patient This patient is new to me today: No - Critical Care Critical Care patient: No - Discharge Referral [facility]erred to [facility] Med P.C.: No
--- NOTE | 2019-04-16 07:53 | DS ---
Physical Exam: SUBJECTIVE: Patient seen and examined at bedside. States that he is tolerating his diet. In no acute distress. OBJECTIVE: Vital Signs Period Temp Pulse Resp BP Sys/Reed Pulse Ox Last 24 Hr 97.3 F-98.9 F 74-97 20-20 104-133/60-83 95 PHYSICAL EXAM GENERAL: The patient is awake, alert, and fully oriented, in no acute distress. HEAD: Normal with no signs of trauma. EYES: PERRL, extraocular movements intact, sclera anicteric, conjunctiva clear. ENT: Ears normal, nares patent, oropharynx clear without exudates, moist mucous membranes. NECK: Trachea midline, full range of motion, supple. LUNGS: Breath sounds equal, clear to auscultation bilaterally, no wheezes, no crackles, no accessory muscle use. HEART: Regular rate and rhythm, S1, S2 without murmur, rub or gallop. ABDOMEN: Soft, obese, nontender, nondistended EXTREMITIES: 2+ pt pulses, warm, well-perfused, no edema. NEUROLOGICAL: Cranial nerves II through XII grossly intact LABS Laboratory Results - last 24 hr 04/16/19 06:08 POC Glucometer 130 Laboratory Tests 04/11/19 04/12/19 04/12/19 11:30 07:57 07:57 WBC 8.3 Hgb 12.3 Hct 36.4 Plt Count 171 Sodium 145 Potassium 4.0 Chloride 113 H Carbon Dioxide BUN 29.5 H Creatinine 1.5 H Random Glucose 153 H Hemoglobin A1c % 6.2 04/14/19 04/14/19 06:00 08:35 WBC 10.1 H Hgb 11.1 L Hct 32.9 L Plt Count 159 Sodium 151 H Potassium 4.0 Chloride 118 H Carbon Dioxide 25 BUN 23.1 H Creatinine 1.3 Random Glucose Hemoglobin A1c % Microbiology (-) no microbio during this visit Imaging 04/14: AXR: central small bowel dilation, some air and stool in colon. compatible with small bowel or partial small bowel obstruction 04/13: AXR: slight decrease in small bowel air distension, partial resolution of SBO process. air and stool in colon. free air not seen. NGT in stomach. 04/12: renal sono: unremarkable 04/12: AXR: small bowel obstruction w distended bowel loops seen centrally. some air and stool in the colon, urine filled bladder and pelvic phleboliths. no free air. NGT difficult to visualize 04/12: AXR: SBO visualized 04/11 AXR: distended fluid filled stomach and small bowel consistent with obstruction. transition point may be in right lower quadrant as nondistended small bowel is seen there. Sigmoid diverticulosis also noted without diverticulitis. EKG 04/08: NSR, rate 88bpm, qtc 438ms HOSPITAL COURSE: Date of Admission:04/11/19 Date of Discharge: 04/16/19 Admit diagnosis: SBO 68 y/o M with h/o CAD s/p stenting, bipolar disorder, and previous SBO (2017, adhesions with surgical intervention) who presented with complaints of abdominal pain and multiple episodes of emesis. Pt was found to have small bowel obstruction on CTAP and was managed via NG tube, placed in ED with 100cc of drainage at time of exam. Pt improved from symptomatic decompression, IVF, and continuation of home meds. Was able to pass flatus on discharge. He is being sent back to his facility. Minutes to complete discharge: 45 Discharge Summary Problems reviewed: Yes Reason For Visit: ABD PAIN Current Active Problems Abdominal pain (Acute) HTN (hypertension) (Acute) Obesity (BMI 30-39.9) (Acute) Prediabetes (Acute) SBO (small bowel obstruction) (Acute) Vomiting with nausea, not intractable (Acute) Condition: Improved - Instructions Diet, Activity, Other Instructions: You were in the hospital because you had a bowel obstruction. You were seen by a surgeon, Dr. Delgado. Your diet was advanced and you were able to tolerate it. You can continue your current activity level. You are being sent back to your facility. No new medications have been started during your stay. You may continue your home meds. Please follow up with: -Your PCP in 3-5 days. -your surgeon, Dr. Delgado in a week. If you develop chest pain or shortness of breath please go to the hospital. Referrals: Royal Shaw [Primary Care Provider] - 04/19/19 Derick Delgado MD [Staff Physician] - 1 Week Disposition: HOME - Home Medications Comprehensive Discharge Medication List: Ambulatory Orders Aspirin [ASA -] 81 mg PO DAILY 04/20/17 Sertraline HCl [Zoloft -] 50 mg PO DAILY tablet 04/26/17 Divalproex *ER* [Depakote *ER* -] 250 mg PO DAILY 11/28/17 Fluphenazine Decanoate [Prolixin Decanoate (Long-Acting Injection) -] 25 mg IJ ASDIR 11/28/17 Lurasidone HCl [Latuda -] 20 mg PO DAILY 11/28/17 This patient is new to me today: Yes Date on this admission: 04/16/19 Emergency Visit: No Critical Care patient: No - Discharge Referral Referred to [facility] No
[2019-04-16] MEDS: POTASSIUM CHLORIDE 10 MEQ in SODIUM CHLORIDE 0.45% 1,000 ML IVPB SCH (08:33)
--- NOTE | 2019-04-16 09:19 | PN ---
Progress Note (short form) - Note Progress Note: 68yo M h/o SBO, pt seen and examined at bedside. Pt abd pain completely resolved, pt tolerating regular diet. Pt states he is anxious to go home today. Last Vital Signs Temp Pulse Resp BP Pulse Ox 97.7 F 77 16 133/70 95 04/16/19 08:04 04/16/19 08:04 04/16/19 08:04 04/16/19 08:04 04/15/19 21:00 CBC, BMP 04/14/19 08:35 04/14/19 06:00 PE: Gen; a&O x3 Resp: breathing comfortably Abd; soft, nontender, nondistended Ext: no edema Problem List - Problems (1) SBO (small bowel obstruction) Assessment/Plan: Plan -sbo appears completely resolved at this time. Pt is cleared for discharge from surgical standpoint. -pt should follow up with Dr. Delgado in the office in 1-2 weeks for followup Pt discussed with Dr. Delgado who agrees with plan. Code(s): K56.609 - UNSP INTESTNL OBST, UNSP TO PARTIAL VERSUS COMPLETE OBST
[2019-04-16] MEDS ORDERED: PT OWN MED DRAWER 7, Y5N ONE (09:59)
[2019-04-16] MEDS: VALPROATE SODIUM 500 MG/5 ML VIAL IVPB SCH (10:06)
[2019-04-16] MEDS ORDERED: POLYETHYLENE GLYCOL 3350 119 GM BTL PO ONE (13:11)
[2019-04-16 14:10] VITALS: BP 113/64; PULSE 88; TEMP 98
== END 2019-04-16 18:48 | disposition home or self-care (01) | DRG 389 ==
LOC: JER 10:10 → JERBED 15:20 → J6S 17:06
PROVIDERS: ADMIT Internal Medicine; ATTEND Internal Medicine
DX: K56.609 Unspecified intestinal obstruction, unspecified as to partial versus complete obstruction (principal); F31.89 Other bipolar disorder; N17.9 Acute kidney failure, unspecified; N28.9 Disorder of kidney and ureter, unspecified; K76.0 Fatty (change of) liver, not elsewhere classified; I25.10 Atherosclerotic heart disease of native coronary artery without angina pectoris; E78.5 Hyperlipidemia, unspecified; E83.42 Hypomagnesemia; E66.9 Obesity, unspecified; Z68.32 Body mass index [BMI] 32.0-32.9, adult; I10 Essential (primary) hypertension; D64.9 Anemia, unspecified; Z98.61 Coronary angioplasty status
CPT/HCPCS: 36415; 71045-TC-FY; 74018-TC-FY; 74019-TC-FY; 74177-TC; 76775-TC; 80048; 80053; 80061; 82436; 82550; 82553; 82565; 82962; 83036; 83605; 83690; 83721; 83735; 84100; 84133; 84300; 84443; 84484; 85025; 85027; 85610; 85730; 86850; 86900; 86901; 93005; 93010; 99282-25; J0131; J7030

== ENCOUNTER 2022-07-14 13:57 | Inpatient (IN) | payer OTHER ==
[2022-07-14] MEDS ORDERED: SODIUM CHLORIDE 0.9% 500 ML INFUS.BAG IV ONE ×2 (15:19→16:45)
[2022-07-14 16:18] LABS: BASO % 0.1 % (0-2.0); HEMATOCRIT 30.1 % (35.4-49); HEMOGLOBIN 9.7 GM/dL (11.7-16.9); LYMPH % 3.8 % (8-40); MCH 28.4 pg (25.7-33.7); MCHC 32.3 g/dl (32.0-35.9); MEAN PLT VOLUME 9.3 fl (7.5-11.1); MONO % 6.7 % (3.8-10.2); NEUT % 89.4 % (42.8-82.8); PLATELET COUNT 166 10^3/uL (134-434); RBC 3.42 M/mm3 (4.00-5.60); RDW 16.4 % (11.9-15.9); WHITE BLOOD COUNT 20.3 K/mm3 (4.0-10.0)
[2022-07-14 16:38] LABS: INR 1.38 (0.83-1.09); PROTHROMBIN TIME (PATIENT) 15.9 SEC (9.7-13.0)
[2022-07-14 16:41] LABS: ACTIVATED PTT 29.2 SECONDS (25.2-36.5)
[2022-07-14 16:45] LABS: ALBUMIN 2.8 g/dl (3.4-5.0); BLOOD UREA NITROGEN 40.1 mg/dL (7-18); CALCIUM 10.2 mg/dL (8.5-10.1)
[2022-07-14] MEDS ORDERED: VANCOMYCIN/WATER 2 GM/400 ML PREMIX BAG IVPB ONE (16:45)
[2022-07-14] MEDS ORDERED: PIPERACILLIN/TAZOB 4.5 GM 4.5 GM in DEXTROSE 5%-WATER 100 ML IVPB ONE (16:46)
[2022-07-14 16:48] LABS: CREATININE 2.4 mg/dL (0.55-1.3)
[2022-07-14 16:49] LABS: BILIRUBIN,TOTAL 0.7 mg/dL (0.2-1); TOT PROT 6.5 g/dl (6.4-8.2)
[2022-07-14 17:01] LABS: LACTIC ACID 2.7 mmol/L (0.4-2.0)
[2022-07-14 17:02] LABS: ANISOCYTOSIS 2+; MACROCYTOSIS 0; TARGET CELLS 1+
[2022-07-14] MEDS ORDERED: PIPERACILLIN/TAZOB 3.375 GM 3.375 GM/50 ML BAG IVPB ONE (17:20)
[2022-07-14] MEDS ORDERED: PIPERACILLIN/TAZOB 4.5 GM 4.5 GM/100 ML BAG IVPB ONE (17:20)
[2022-07-14 21:09] LABS: VENOUS BASE EXCESS -8.4 mmol/L (-2-2); VENOUS O2 SATURATION 80.8 % (70-80); VENOUS PH 7.341 (7.310-7.410)
[2022-07-14] MEDS ORDERED: SODIUM CHLORIDE 500 ML IV STA (22:04)
[2022-07-14] MEDS: SODIUM CHLORIDE 1,000 ML IV SCH (23:04)
[2022-07-15 02:38] VITALS: BMI 28.0
[2022-07-15 08:33] LABS: BASO % 0.1 % (0-2.0); EOS % 0.1 % (0-4.5); HEMATOCRIT 24.5 % (35.4-49); LYMPH % 6.6 % (8-40); MCH 28.7 pg (25.7-33.7); MCHC 32.8 g/dl (32.0-35.9); MEAN CELL VOLUME 87.5 fl (80-96); MEAN PLT VOLUME 9.8 fl (7.5-11.1); MONO % 6.7 % (3.8-10.2); NEUT % 86.5 % (42.8-82.8); PLATELET COUNT 131 10^3/uL (134-434); RDW 16.2 % (11.9-15.9); WHITE BLOOD COUNT 15.4 K/mm3 (4.0-10.0)
[2022-07-15 08:55] LABS: ALBUMIN 2.3 g/dl (3.4-5.0); CALCIUM 8.9 mg/dL (8.5-10.1)
[2022-07-15 08:57] LABS: BLOOD UREA NITROGEN 36.5 mg/dL (7-18)
[2022-07-15 09:00] LABS: BILIRUBIN,TOTAL 0.6 mg/dL (0.2-1); TOT PROT 5.3 g/dl (6.4-8.2)
[2022-07-15 09:04] LABS: URINE APPEARANCE CLEAR; URINE BILIRUBIN NEGATIVE (NEGATIVE); URINE COLOR YELLOW; URINE GLUCOSE (UA) NEGATIVE (NEGATIVE); URINE KETONE NEGATIVE (NEGATIVE); URINE LEUK ESTERASE NEGATIVE (NEGATIVE); URINE NITRITE NEGATIVE (NEGATIVE); URINE PROTEIN NEGATIVE (NEGATIVE); URINE UROBILINOGEN 0.2 mg/dL (0.2-1.0)
[2022-07-15] MEDS ORDERED: PIPERACILLIN/TAZOB 3.375 GM 3.375 GM in DEXTROSE 5%-WATER - 50 ML IVPB SCH (10:00)
[2022-07-15] MEDS: DIVALPROEX NA *ER* EXTEND REL 250 MG TABLET.SA PO SCH (11:13)
[2022-07-15] MEDS: SERTRALINE HCL 50 MG TABLET (FP) PO SCH (11:13)
[2022-07-15] MEDS: LURASIDONE HCL 20 MG TABLET PO SCH (11:13)
[2022-07-15] MEDS: PIPERACILLIN/TAZOB 3.375 GM 3.375 GM in DEXTROSE 5%-WATER - 50 ML IVPB SCH (17:56)
[2022-07-16] MEDS: PIPERACILLIN/TAZOB 3.375 GM 3.375 GM in DEXTROSE 5%-WATER - 50 ML IVPB SCH (02:58)
[2022-07-16] MEDS: SODIUM CHLORIDE 1,000 ML IV SCH (03:04)
[2022-07-16 08:41] VITALS: BP 114/68; PULSE 83; RESP 18; TEMP 98.8
[2022-07-16] MEDS: LURASIDONE HCL 20 MG TABLET PO SCH (09:29)
[2022-07-16] MEDS: DIVALPROEX NA *ER* EXTEND REL 250 MG TABLET.SA PO SCH (09:29)
[2022-07-16] MEDS: SERTRALINE HCL 50 MG TABLET (FP) PO SCH (09:29)
== END 2022-07-16 10:59 | disposition short-term general hospital (02) | DRG 981 ==
LOC: JER 13:57 → JERBED 19:30 → J4W 07-15 02:12
PROVIDERS: ADMIT Internal Medicine; ATTEND Family Medicine
PROC: 0FP430Z Removal of Drainage Device from Gallbladder, Percutaneous Approach (ICD-10-PCS; principal; 2022-07-15)
PROC: 0F9430Z Drainage of Gallbladder with Drainage Device, Percutaneous Approach (ICD-10-PCS; 2022-07-15)
DX: T85.518A Breakdown (mechanical) of other gastrointestinal prosthetic devices, implants and grafts, initial encounter (principal); A41.9 Sepsis, unspecified organism; R65.20 Severe sepsis without septic shock; K83.09 Other cholangitis; I25.10 Atherosclerotic heart disease of native coronary artery without angina pectoris; F31.9 Bipolar disorder, unspecified; Y83.8 Other surgical procedures as the cause of abnormal reaction of the patient, or of later complication, without mention of misadventure at the time of the procedure; I10 Essential (primary) hypertension; E78.5 Hyperlipidemia, unspecified; K80.50 Calculus of bile duct without cholangitis or cholecystitis without obstruction
CPT/HCPCS: 0241U-QW; 36415; 51710; 71045-TC-FY; 74176-TC; 75984-TC-RT-FY; 80053; 81003; 82803; 83605; 83690; 84484; 85025; 85610; 85730; 87040; 87086; 93005; 93010; 99285-25; A4358; C1729; C1769

== ENCOUNTER 2022-08-06 15:49 | Inpatient (IN) | payer OTHER ==
[2022-08-06 16:01] VITALS: BMI 24.7
[2022-08-06] MEDS ORDERED: ACETAMINOPHEN 1000 MG/100 ML BAG IVPB ONE (17:33)
[2022-08-06] MEDS ORDERED: SODIUM CHLORIDE 0.9% 500 ML INFUS.BAG IV ONE ×2 (17:33→20:41)
[2022-08-06 19:24] LABS: BASO % 0.6 % (0-2.0); EOS % 1.4 % (0-4.5); HEMOGLOBIN 12.1 GM/dL (11.7-16.9); LYMPH % 15.2 % (8-40); MCH 27.5 pg (25.7-33.7); MEAN PLT VOLUME 9.9 fl (7.5-11.1); MONO % 9.1 % (3.8-10.2); NEUT % 73.7 % (42.8-82.8); PLATELET COUNT 226 10^3/uL (134-434); RBC 4.42 M/mm3 (4.00-5.60); RDW 17.1 % (11.9-15.9); WHITE BLOOD COUNT 9.3 K/mm3 (4.0-10.0)
[2022-08-06] MEDS ORDERED: ACETAMINOPHEN INJECTION 100 ML IVPB ONE (19:25)
[2022-08-06 19:35] LABS: INR 1.09 (0.83-1.09); PROTHROMBIN TIME (PATIENT) 12.6 SEC (9.7-13.0)
[2022-08-06 19:49] LABS: CALCIUM 11.1 mg/dL (8.5-10.1)
[2022-08-06 19:50] LABS: ALBUMIN 3.3 g/dl (3.4-5.0); BLOOD UREA NITROGEN 50.6 mg/dL (7-18)
[2022-08-06 19:53] LABS: CREATININE 2.6 mg/dL (0.55-1.3)
[2022-08-06 19:54] LABS: TOT PROT 7.6 g/dl (6.4-8.2)
[2022-08-06 19:55] LABS: BILIRUBIN,TOTAL 0.7 mg/dL (0.2-1)
[2022-08-06] MEDS ORDERED: SODIUM ZIRCONIUM CYCLOSILICATE (LOKELMA) 5 GM PACKET ONE (21:58)
[2022-08-07 07:59] LABS: HEMATOCRIT 33.7 % (35.4-49); MCH 28.6 pg (25.7-33.7); MCHC 32.8 g/dl (32.0-35.9); MEAN CELL VOLUME 87.4 fl (80-96); MEAN PLT VOLUME 9.9 fl (7.5-11.1); PLATELET COUNT 190 10^3/uL (134-434); RBC 3.86 M/mm3 (4.00-5.60); WHITE BLOOD COUNT 17.5 K/mm3 (4.0-10.0)
[2022-08-07 09:02] LABS: ALBUMIN 2.9 g/dl (3.4-5.0); BILIRUBIN,TOTAL 0.7 mg/dL (0.2-1); BLOOD UREA NITROGEN 55.1 mg/dL (7-18); CALCIUM 10.7 mg/dL (8.5-10.1); CREATININE 2.8 mg/dL (0.55-1.3); TOT PROT 6.6 g/dl (6.4-8.2)
[2022-08-07] MEDS ORDERED: SODIUM CHLORIDE 1,000 ML IV SCH (09:15)
[2022-08-07 09:17] LABS: ANISOCYTOSIS 0; HELMET CELLS 0; HOWELL-JOLLY BODIES 0; MACROCYTOSIS 0; OVALOCYTE 0; ROULEAU 0; SICKELED CELLS 0; TARGET CELLS 0; TEAR DROP CELLS 0; TOXIC GRANULATION 0
[2022-08-07] MEDS ORDERED: PIPERACILLIN/TAZOB 3.375 GM 3.375 GM/50 ML BAG IVPB ONE (09:57)
[2022-08-07] MEDS ORDERED: PIPERACILLIN/TAZOB 3.375 GM 3.375 GM in DEXTROSE 5%-WATER - 50 ML IVPB SCH ×2 (10:00→18:00)
[2022-08-07] MEDS: SODIUM CHLORIDE 1,000 ML IV SCH ×2 (10:16→17:37)
[2022-08-07] MEDS ORDERED: HEPARIN NA (PORCINE) 5,000 UNITS/ML 1ML VIAL ONE (10:52)
[2022-08-07] MEDS: HEPARIN NA (PORCINE) 5,000 UNITS/ML 1ML VIAL SQ SCH ×2 (11:11→21:45)
[2022-08-07] MEDS ORDERED: VANCOMYCIN/WATER 1,250 MG/250 ML BAG (RESTRICTED TO ID ONLY) IVPB ONE (13:45)
[2022-08-07] MEDS ORDERED: VANCOMYCIN/WATER 1250 MG 1,250 MG/250 ML BAG IVPB ONE (14:31)
[2022-08-07 16:50] LABS: URINE APPEARANCE CLEAR; URINE BILIRUBIN NEGATIVE (NEGATIVE); URINE COLOR YELLOW; URINE GLUCOSE (UA) NEGATIVE (NEGATIVE); URINE KETONE TRACE (NEGATIVE); URINE LEUK ESTERASE NEGATIVE (NEGATIVE); URINE NITRITE NEGATIVE (NEGATIVE); URINE PROTEIN NEGATIVE (NEGATIVE); URINE UROBILINOGEN 0.2 mg/dL (0.2-1.0)
[2022-08-07] MEDS: PIPERACILLIN/TAZOB 3.375 GM 3.375 GM in DEXTROSE 5%-WATER - 50 ML IVPB SCH (18:05)
[2022-08-07] MEDS ORDERED: SODIUM ZIRCONIUM CYCLOSILICATE (LOKELMA) 5 GM PACKET PO ONE (20:41)
[2022-08-08] MEDS ORDERED: PIPERACILLIN/TAZOBACTAM 3.375 GM VIAL IVPB ONE (00:08)
[2022-08-08] MEDS: PIPERACILLIN/TAZOB 3.375 GM 3.375 GM in DEXTROSE 5%-WATER - 50 ML IVPB SCH ×3 (01:03→17:20)
[2022-08-08] MEDS: SODIUM CHLORIDE 1,000 ML IV SCH ×3 (06:01→15:34)
[2022-08-08 08:44] LABS: BASO % 0.7 % (0-2.0); EOS % 0.9 % (0-4.5); HEMOGLOBIN 10.1 GM/dL (11.7-16.9); LYMPH % 11.5 % (8-40); MCH 28.2 pg (25.7-33.7); MCHC 32.5 g/dl (32.0-35.9); MEAN CELL VOLUME 86.7 fl (80-96); MEAN PLT VOLUME 9.9 fl (7.5-11.1); MONO % 9.1 % (3.8-10.2); NEUT % 77.8 % (42.8-82.8); PLATELET COUNT 139 10^3/uL (134-434); RBC 3.57 M/mm3 (4.00-5.60); RDW 17.6 % (11.9-15.9); WHITE BLOOD COUNT 5.4 K/mm3 (4.0-10.0)
[2022-08-08 08:53] LABS: ALBUMIN 2.4 g/dl (3.4-5.0); BLOOD UREA NITROGEN 50.8 mg/dL (7-18)
[2022-08-08 08:56] LABS: CREATININE 2.6 mg/dL (0.55-1.3)
[2022-08-08 08:57] LABS: BILIRUBIN,TOTAL 0.6 mg/dL (0.2-1)
[2022-08-08] MEDS ORDERED: VANCOMYCIN/WATER FOR INJ (PEG) 1,000 MG/200 ML BAG IVPB ONE (11:40)
[2022-08-08] MEDS: HEPARIN NA (PORCINE) 5,000 UNITS/ML 1ML VIAL SQ SCH ×2 (12:02→22:23)
[2022-08-08] MEDS: URSODIOL 300 MG CAPSULE PO SCH (22:23)
[2022-08-09] MEDS: PIPERACILLIN/TAZOB 3.375 GM 3.375 GM in DEXTROSE 5%-WATER - 50 ML IVPB SCH ×2 (01:31→14:15)
[2022-08-09] MEDS: SODIUM CHLORIDE 1,000 ML IV SCH ×2 (01:34→18:51)
[2022-08-09 09:37] LABS: HEMATOCRIT 27.2 % (35.4-49); HEMOGLOBIN 8.8 GM/dL (11.7-16.9); MCH 28.7 pg (25.7-33.7); MCHC 32.4 g/dl (32.0-35.9); MEAN CELL VOLUME 88.6 fl (80-96); MEAN PLT VOLUME 9.8 fl (7.5-11.1); PLATELET COUNT 133 10^3/uL (134-434); RBC 3.07 M/mm3 (4.00-5.60); RDW 17.3 % (11.9-15.9); WHITE BLOOD COUNT 6.3 K/mm3 (4.0-10.0)
[2022-08-09 10:08] LABS: BLOOD UREA NITROGEN 39.4 mg/dL (7-18)
[2022-08-09 10:09] LABS: CALCIUM 9.5 mg/dL (8.5-10.1)
[2022-08-09 10:10] LABS: ALBUMIN 2.2 g/dl (3.4-5.0)
[2022-08-09 10:11] LABS: BILIRUBIN,DIRECT 0.1 mg/dL (0.0-0.2); CREATININE 2.1 mg/dL (0.55-1.3)
[2022-08-09 10:13] LABS: BILIRUBIN,TOTAL 0.5 mg/dL (0.2-1)
[2022-08-09 10:15] LABS: TOT PROT 5.3 g/dl (6.4-8.2)
[2022-08-09] MEDS ORDERED: MIDAZOLAM HCL 2 MG/2 ML SINGLE DOSE VIAL ONE (11:31)
[2022-08-09] MEDS ORDERED: FENTANYL CITRATE/PF 50 MCG/ML VIAL ONE ×2 (11:32→11:36)
[2022-08-09] MEDS ORDERED: ceFAZolin SODIUM 1 GM VIAL ONE (12:04)
[2022-08-09] MEDS ORDERED: CEFAZOLIN SODIUM 2 GM in DEXTROSE 5%-WATER 100 ML IVPB ONE (13:00)
[2022-08-09] MEDS: URSODIOL 300 MG CAPSULE PO SCH ×2 (14:15→22:05)
[2022-08-09] MEDS: HEPARIN NA (PORCINE) 5,000 UNITS/ML 1ML VIAL SQ SCH ×2 (14:17→22:04)
[2022-08-09] MEDS: SODIUM CHLORIDE IVPB SCH (18:59)
[2022-08-09] MEDS: DAPTOMYCIN IVPB SCH (18:59)
[2022-08-10 08:58] LABS: ALBUMIN 2.1 g/dl (3.4-5.0)
[2022-08-10 09:00] LABS: BILIRUBIN,DIRECT 0.1 mg/dL (0.0-0.2)
[2022-08-10 09:02] LABS: BILIRUBIN,TOTAL 0.3 mg/dL (0.2-1)
[2022-08-10 09:03] LABS: TOT PROT 5.3 g/dl (6.4-8.2)
[2022-08-10] MEDS: URSODIOL 300 MG CAPSULE PO SCH ×2 (09:33→21:19)
[2022-08-10] MEDS: HEPARIN NA (PORCINE) 5,000 UNITS/ML 1ML VIAL SQ SCH ×2 (09:33→21:19)
[2022-08-10] MEDS: SODIUM CHLORIDE 1,000 ML IV SCH ×2 (18:14→18:15)
[2022-08-11 08:28] LABS: BASO % 0.6 % (0-2.0); EOS % 2.4 % (0-4.5); HEMATOCRIT 27.8 % (35.4-49); HEMOGLOBIN 9.1 GM/dL (11.7-16.9); LYMPH % 22.1 % (8-40); MCH 28.8 pg (25.7-33.7); MCHC 32.8 g/dl (32.0-35.9); MEAN CELL VOLUME 87.8 fl (80-96); MEAN PLT VOLUME 9.5 fl (7.5-11.1); MONO % 8.1 % (3.8-10.2); NEUT % 66.8 % (42.8-82.8); PLATELET COUNT 138 10^3/uL (134-434); RBC 3.17 M/mm3 (4.00-5.60); RDW 17.3 % (11.9-15.9); WHITE BLOOD COUNT 5.1 K/mm3 (4.0-10.0)
[2022-08-11 09:09] LABS: TOT PROT 5.5 g/dl (6.4-8.2)
[2022-08-11 09:10] LABS: ALBUMIN 2.2 g/dl (3.4-5.0); BILIRUBIN,DIRECT 0.1 mg/dL (0.0-0.2); BLOOD UREA NITROGEN 18.3 mg/dL (7-18); CALCIUM 9.5 mg/dL (8.5-10.1); CREATININE 1.2 mg/dL (0.55-1.3)
[2022-08-11 09:12] LABS: BILIRUBIN,TOTAL 0.4 mg/dL (0.2-1)
[2022-08-11] MEDS: HEPARIN NA (PORCINE) 5,000 UNITS/ML 1ML VIAL SQ SCH ×2 (09:54→22:55)
[2022-08-11] MEDS: URSODIOL 300 MG CAPSULE PO SCH ×2 (09:54→22:56)
[2022-08-11] MEDS: DAPTOMYCIN IVPB SCH (13:16)
[2022-08-11] MEDS: SODIUM CHLORIDE IVPB SCH (13:16)
[2022-08-11] MEDS: SODIUM CHLORIDE 1,000 ML IV SCH (22:53)
[2022-08-12] MEDS: HEPARIN NA (PORCINE) 5,000 UNITS/ML 1ML VIAL SQ SCH (10:03)
[2022-08-12] MEDS: URSODIOL 300 MG CAPSULE PO SCH ×2 (10:03→21:46)
[2022-08-12] MEDS: DAPTOMYCIN IVPB SCH (12:23)
[2022-08-12] MEDS: SODIUM CHLORIDE IVPB SCH (12:23)
[2022-08-12] MEDS: SODIUM CHLORIDE 1,000 ML IV SCH (21:46)
[2022-08-13 08:52] LABS: CALCIUM 9.6 mg/dL (8.5-10.1)
[2022-08-13 08:53] LABS: ALBUMIN 2.4 g/dl (3.4-5.0); BLOOD UREA NITROGEN 11.9 mg/dL (7-18)
[2022-08-13 08:56] LABS: CREATININE 1.1 mg/dL (0.55-1.3)
[2022-08-13 08:57] LABS: BILIRUBIN,TOTAL 0.8 mg/dL (0.2-1)
[2022-08-13 10:16] LABS: BASO % 0.5 % (0-2.0); EOS % 3.1 % (0-4.5); HEMATOCRIT 28.7 % (35.4-49); HEMOGLOBIN 9.3 GM/dL (11.7-16.9); LYMPH % 23.1 % (8-40); MCH 28.8 pg (25.7-33.7); MCHC 32.6 g/dl (32.0-35.9); MEAN CELL VOLUME 88.4 fl (80-96); MEAN PLT VOLUME 8.7 fl (7.5-11.1); NEUT % 65.3 % (42.8-82.8); PLATELET COUNT 145 10^3/uL (134-434); RBC 3.24 M/mm3 (4.00-5.60); RDW 16.8 % (11.9-15.9); WHITE BLOOD COUNT 5.6 K/mm3 (4.0-10.0)
[2022-08-13] MEDS: URSODIOL 300 MG CAPSULE PO SCH ×2 (11:02→21:03)
[2022-08-13] MEDS: DAPTOMYCIN IVPB SCH (11:02)
[2022-08-13] MEDS: SODIUM CHLORIDE IVPB SCH (11:02)
[2022-08-13] MEDS ORDERED: KCL 10 MEQ IVPB 10 MEQ/100 ML INFUS.BAG IVPB SCH (12:45)
[2022-08-13] MEDS: SODIUM CHLORIDE 1,000 ML IV SCH (18:02)
[2022-08-14] MEDS ORDERED: MAGNESIUM SULF 50% (8.12 MEQ/2 ML-1 GM VIAL) IVPB ONE (08:41)
[2022-08-14] MEDS: URSODIOL 300 MG CAPSULE PO SCH ×2 (09:43→22:05)
[2022-08-14] MEDS: DAPTOMYCIN IVPB SCH (10:55)
[2022-08-14] MEDS: SODIUM CHLORIDE IVPB SCH (10:55)
[2022-08-15] MEDS: SODIUM CHLORIDE 1,000 ML IV SCH (05:00)
[2022-08-15 07:40] LABS: HEMATOCRIT 26.5 % (35.4-49); MCH 29.2 pg (25.7-33.7); MCHC 33.9 g/dl (32.0-35.9); MEAN CELL VOLUME 86.1 fl (80-96); MEAN PLT VOLUME 8.5 fl (7.5-11.1); PLATELET COUNT 131 10^3/uL (134-434); RBC 3.08 M/mm3 (4.00-5.60); RDW 16.8 % (11.9-15.9); WHITE BLOOD COUNT 5.6 K/mm3 (4.0-10.0)
[2022-08-15 08:10] LABS: ALBUMIN 2.3 g/dl (3.4-5.0); BLOOD UREA NITROGEN 10.6 mg/dL (7-18); CALCIUM 8.7 mg/dL (8.5-10.1)
[2022-08-15 08:11] LABS: MAGNESIUM 1.2 mg/dL (1.8-2.4)
[2022-08-15 08:15] LABS: BILIRUBIN,TOTAL 0.4 mg/dL (0.2-1); TOT PROT 5.6 g/dl (6.4-8.2)
[2022-08-15] MEDS: URSODIOL 300 MG CAPSULE PO SCH ×2 (10:14→21:20)
[2022-08-15] MEDS: DAPTOMYCIN IVPB SCH (10:14)
[2022-08-15] MEDS: SODIUM CHLORIDE IVPB SCH (10:14)
[2022-08-15] MEDS ORDERED: MAGNESIUM SULF 50% (8.12 MEQ/2 ML-1 GM VIAL) IVPB ONE (13:48)
[2022-08-15] MEDS ORDERED: POTASSIUM CHLORIDE TABS 20 MEQ TABLET.ER (FP) PO ONE (13:48)
[2022-08-15] MEDS ORDERED: MAGNESIUM 2GM/50ML STERILE WATER IVPB IVPB ONE (15:30)
[2022-08-16 07:53] LABS: CALCIUM 8.7 mg/dL (8.5-10.1)
[2022-08-16 07:54] LABS: BLOOD UREA NITROGEN 8.2 mg/dL (7-18); MAGNESIUM 1.7 mg/dL (1.8-2.4)
[2022-08-16 07:57] LABS: CREATININE 1.1 mg/dL (0.55-1.3)
[2022-08-16] MEDS ORDERED: cefOXitin SODIUM 2 GM VIAL (RESTRICTED TO ID) IVPB ONE (08:41)
[2022-08-16] MEDS: URSODIOL 300 MG CAPSULE PO SCH ×3 (09:49→21:03)
[2022-08-16] MEDS: SODIUM CHLORIDE IVPB SCH (10:22)
[2022-08-16] MEDS: DAPTOMYCIN IVPB SCH (10:22)
[2022-08-16] MEDS ORDERED: MAGNESIUM SULF 50% (8.12 MEQ/2 ML-1 GM VIAL) IVPB ONE (19:59)
[2022-08-17] MEDS ORDERED: PHYTONADIONE 10 MG/1 ML AMP IVPB ONE (08:03)
[2022-08-17 08:16] LABS: BASO % 0.4 % (0-2.0); EOS % 3.6 % (0-4.5); HEMATOCRIT 26.5 % (35.4-49); HEMOGLOBIN 8.8 GM/dL (11.7-16.9); MCH 28.5 pg (25.7-33.7); MCHC 33.1 g/dl (32.0-35.9); MEAN CELL VOLUME 86.1 fl (80-96); MEAN PLT VOLUME 8.7 fl (7.5-11.1); MONO % 9.6 % (3.8-10.2); NEUT % 66.4 % (42.8-82.8); PLATELET COUNT 137 10^3/uL (134-434); RBC 3.07 M/mm3 (4.00-5.60); WHITE BLOOD COUNT 6.4 K/mm3 (4.0-10.0)
[2022-08-17 08:20] LABS: INR 1.54 (0.83-1.09); PROTHROMBIN TIME (PATIENT) 17.8 SEC (9.7-13.0)
[2022-08-17 08:39] LABS: CALCIUM 8.7 mg/dL (8.5-10.1)
[2022-08-17 08:40] LABS: ALBUMIN 2.3 g/dl (3.4-5.0); BLOOD UREA NITROGEN 9.1 mg/dL (7-18)
[2022-08-17 08:43] LABS: CREATININE 1.2 mg/dL (0.55-1.3)
[2022-08-17 08:45] LABS: BILIRUBIN,TOTAL 0.6 mg/dL (0.2-1); TOT PROT 5.6 g/dl (6.4-8.2)
[2022-08-17] MEDS: URSODIOL 300 MG CAPSULE PO SCH ×2 (09:58→22:14)
[2022-08-17] MEDS: DAPTOMYCIN IVPB SCH (09:59)
[2022-08-17] MEDS: SODIUM CHLORIDE IVPB SCH (09:59)
[2022-08-17] MEDS ORDERED: MIDAZOLAM HCL 2 MG/2 ML SINGLE DOSE VIAL ONE (11:24)
[2022-08-17] MEDS ORDERED: FENTANYL CITRATE/PF 50 MCG/ML VIAL ONE (11:24)
[2022-08-17] MEDS ORDERED: IOHEXOL 300 MG/ML INFUS..BTL IV ONE ×2 (12:00→12:30)
[2022-08-17] MEDS ORDERED: LACTATED RINGERS SOLUTION 1,000 ML/1,000 ML INFUS.BAG IV SCH (12:30)
[2022-08-17] MEDS: LACTATED RINGERS SOLUTION 1,000 ML/1,000 ML INFUS.BAG IV SCH (22:14)
[2022-08-18] MEDS: LACTATED RINGERS SOLUTION 1,000 ML/1,000 ML INFUS.BAG IV SCH ×2 (06:18→19:39)
[2022-08-18 07:07] LABS: BASO % 0.4 % (0-2.0); EOS % 2.3 % (0-4.5); HEMATOCRIT 27.4 % (35.4-49); HEMOGLOBIN 9.1 GM/dL (11.7-16.9); LYMPH % 15.6 % (8-40); MCH 28.8 pg (25.7-33.7); MCHC 33.3 g/dl (32.0-35.9); MEAN CELL VOLUME 86.6 fl (80-96); MEAN PLT VOLUME 9.3 fl (7.5-11.1); MONO % 7.9 % (3.8-10.2); NEUT % 73.8 % (42.8-82.8); PLATELET COUNT 140 10^3/uL (134-434); RBC 3.16 M/mm3 (4.00-5.60); RDW 17.5 % (11.9-15.9); WHITE BLOOD COUNT 7.1 K/mm3 (4.0-10.0)
[2022-08-18 07:15] LABS: BLOOD UREA NITROGEN 9.6 mg/dL (7-18)
[2022-08-18 07:16] LABS: ALBUMIN 2.4 g/dl (3.4-5.0); CALCIUM 9.2 mg/dL (8.5-10.1)
[2022-08-18 07:19] LABS: CREATININE 1.2 mg/dL (0.55-1.3)
[2022-08-18 07:21] LABS: BILIRUBIN,TOTAL 0.7 mg/dL (0.2-1)
[2022-08-18] MEDS ORDERED: LACTATED RINGERS SOLUTION 1,000 ML/1,000 ML INFUS.BAG IV SCH (08:00)
[2022-08-18] MEDS: SODIUM CHLORIDE IVPB SCH (10:04)
[2022-08-18] MEDS: URSODIOL 300 MG CAPSULE PO SCH ×2 (10:04→21:09)
[2022-08-18] MEDS: DAPTOMYCIN IVPB SCH (10:04)
[2022-08-19 08:08] LABS: BASO % 0.3 % (0-2.0); EOS % 2.6 % (0-4.5); HEMATOCRIT 26.9 % (35.4-49); HEMOGLOBIN 9.1 GM/dL (11.7-16.9); LYMPH % 18.5 % (8-40); MCHC 33.8 g/dl (32.0-35.9); MEAN CELL VOLUME 85.9 fl (80-96); MEAN PLT VOLUME 9.5 fl (7.5-11.1); MONO % 9.2 % (3.8-10.2); NEUT % 69.4 % (42.8-82.8); PLATELET COUNT 128 10^3/uL (134-434); RBC 3.14 M/mm3 (4.00-5.60); RDW 17.2 % (11.9-15.9); WHITE BLOOD COUNT 6.4 K/mm3 (4.0-10.0)
[2022-08-19 08:15] LABS: ALBUMIN 2.2 g/dl (3.4-5.0); CALCIUM 9.1 mg/dL (8.5-10.1)
[2022-08-19 08:19] LABS: CREATININE 1.1 mg/dL (0.55-1.3)
[2022-08-19 08:20] LABS: BILIRUBIN,TOTAL 0.6 mg/dL (0.2-1); TOT PROT 5.6 g/dl (6.4-8.2)
[2022-08-19 08:21] LABS: INR 1.28 (0.83-1.09); PROTHROMBIN TIME (PATIENT) 14.8 SEC (9.7-13.0)
[2022-08-19 08:22] LABS: ACTIVATED PTT 27.8 SECONDS (25.2-36.5)
[2022-08-19 08:26] LABS: BLOOD UREA NITROGEN 8.8 mg/dL (7-18)
[2022-08-19] MEDS: URSODIOL 300 MG CAPSULE PO SCH ×2 (11:22→21:14)
[2022-08-19] MEDS: SODIUM CHLORIDE IVPB SCH (11:22)
[2022-08-19] MEDS: DAPTOMYCIN IVPB SCH (11:22)
[2022-08-20 08:24] LABS: BASO % 0.6 % (0-2.0); EOS % 2.9 % (0-4.5); HEMATOCRIT 25.7 % (35.4-49); HEMOGLOBIN 8.8 GM/dL (11.7-16.9); LYMPH % 21.3 % (8-40); MCH 29.3 pg (25.7-33.7); MEAN CELL VOLUME 86.1 fl (80-96); MONO % 10.3 % (3.8-10.2); NEUT % 64.9 % (42.8-82.8); PLATELET COUNT 129 10^3/uL (134-434); RBC 2.99 M/mm3 (4.00-5.60); RDW 17.2 % (11.9-15.9); WHITE BLOOD COUNT 5.3 K/mm3 (4.0-10.0)
[2022-08-20 08:41] LABS: ALBUMIN 2.3 g/dl (3.4-5.0); CALCIUM 9.2 mg/dL (8.5-10.1)
[2022-08-20 08:42] LABS: BLOOD UREA NITROGEN 7.2 mg/dL (7-18)
[2022-08-20 08:45] LABS: BILIRUBIN,TOTAL 0.7 mg/dL (0.2-1); TOT PROT 5.6 g/dl (6.4-8.2)
[2022-08-20] MEDS: SODIUM CHLORIDE IVPB SCH (10:04)
[2022-08-20] MEDS: DAPTOMYCIN IVPB SCH (10:04)
[2022-08-20] MEDS: URSODIOL 300 MG CAPSULE PO SCH ×2 (10:05→22:36)
[2022-08-20] MEDS: ACETAMINOPHEN 325 MG TABLET (FP) PO PRN (10:05)
[2022-08-20] MEDS ORDERED: POTASSIUM CHLORIDE TABS 20 MEQ TABLET.ER (FP) PO ONE (13:46)
[2022-08-20] MEDS: LACTATED RINGERS SOLUTION 1,000 ML/1,000 ML INFUS.BAG IV SCH (17:43)
[2022-08-21 10:21] LABS: BASO % 0.5 % (0-2.0); EOS % 3.1 % (0-4.5); HEMATOCRIT 25.3 % (35.4-49); HEMOGLOBIN 8.5 GM/dL (11.7-16.9); LYMPH % 20.3 % (8-40); MCH 28.8 pg (25.7-33.7); MCHC 33.7 g/dl (32.0-35.9); MEAN CELL VOLUME 85.5 fl (80-96); MEAN PLT VOLUME 9.7 fl (7.5-11.1); MONO % 9.6 % (3.8-10.2); NEUT % 66.5 % (42.8-82.8); PLATELET COUNT 121 10^3/uL (134-434); RBC 2.96 M/mm3 (4.00-5.60); RDW 17.2 % (11.9-15.9); WHITE BLOOD COUNT 5.2 K/mm3 (4.0-10.0)
[2022-08-21 10:43] LABS: BLOOD UREA NITROGEN 7.2 mg/dL (7-18); CALCIUM 8.9 mg/dL (8.5-10.1)
[2022-08-21] MEDS: URSODIOL 300 MG CAPSULE PO SCH ×2 (10:52→21:06)
[2022-08-21] MEDS: DAPTOMYCIN IVPB SCH (10:53)
[2022-08-21] MEDS: SODIUM CHLORIDE IVPB SCH (10:53)
[2022-08-21] MEDS: LACTATED RINGERS SOLUTION 1,000 ML/1,000 ML INFUS.BAG IV SCH (17:05)
[2022-08-22] MEDS: LACTATED RINGERS SOLUTION 1,000 ML/1,000 ML INFUS.BAG IV SCH ×3 (01:31→16:21)
[2022-08-22] MEDS: ACETAMINOPHEN 325 MG TABLET (FP) PO PRN (06:22)
[2022-08-22] MEDS: URSODIOL 300 MG CAPSULE PO SCH ×2 (10:35→21:00)
[2022-08-22] MEDS: DAPTOMYCIN IVPB SCH (10:35)
[2022-08-22] MEDS: SODIUM CHLORIDE IVPB SCH (10:35)
[2022-08-23] MEDS: LACTATED RINGERS SOLUTION 1,000 ML/1,000 ML INFUS.BAG IV SCH ×2 (09:30→15:41)
[2022-08-23] MEDS: SODIUM CHLORIDE IVPB SCH (09:46)
[2022-08-23] MEDS: DAPTOMYCIN IVPB SCH (09:46)
[2022-08-23] MEDS: URSODIOL 300 MG CAPSULE PO SCH (10:00)
[2022-08-23] MEDS ORDERED: ePHEDrine SULFATE 50 MG/1 ML AMPULE ONE ×2 (10:21→10:23)
[2022-08-23] MEDS ORDERED: ROCURONIUM BROMIDE 50 MG/5 ML SYRINGE ONE (10:22)
[2022-08-23] MEDS ORDERED: PROPOFOL 20 ML ONE (10:22)
[2022-08-23] MEDS ORDERED: SUCCINYLCHOLINE CHLORIDE 200 MG/10 ML SYRINGE ONE (10:22)
[2022-08-23] MEDS ORDERED: MIDAZOLAM HCL 2 MG/2 ML SINGLE DOSE VIAL ONE (10:22)
[2022-08-23] MEDS ORDERED: BUPIVACAINE HCL/PF 0.25% (2.5MG/ML) 10 ML VIAL ONE (10:52)
[2022-08-23] MEDS ORDERED: ACETAMINOPHEN INJECTION 100 ML IVPB ONE (10:55)
[2022-08-23] MEDS ORDERED: BUPIVACAINE HCL/PF 0.25% (2.5MG/ML) 10 ML VIAL IJ ONE ×2 (11:03→11:12)
[2022-08-23] MEDS ORDERED: GLYCOPYRROLATE 0.2 MG/1 ML VIAL ONE (11:57)
[2022-08-23] MEDS ORDERED: NEOSTIGMINE METHYLSULFATE 0.5 MG/1 ML - 10 ML MDV ONE (11:57)
[2022-08-23] MEDS ORDERED: oxyCODONE HCL 5 MG TABLET PO PRN ×2 (12:57→13:39)
[2022-08-23] MEDS ORDERED: ONDANSETRON 4 MG/2 ML VIAL IVPUSH PRN ×2 (12:57→13:44)
[2022-08-23] MEDS ORDERED: ACETAMINOPHEN 325 MG TABLET (FP) PO PRN (13:44)
[2022-08-24] MEDS: LACTATED RINGERS SOLUTION 1,000 ML/1,000 ML INFUS.BAG IV SCH ×2 (00:47→13:55)
[2022-08-24] MEDS ORDERED: SODIUM CHLORIDE IVPB SCH (10:00)
[2022-08-24] MEDS ORDERED: DAPTOMYCIN IVPB SCH (10:00)
[2022-08-24] MEDS: VANCOMYCIN/WATER FOR INJ (PEG) 1,000 MG/200 ML BAG IVPB SCH ×2 (10:26→21:41)
[2022-08-24] MEDS ORDERED: ACETAMINOPHEN 325 MG TABLET (FP) PO SCH (12:45)
[2022-08-24] MEDS: ACETAMINOPHEN 500 MG TABLET (FP) PO SCH ×2 (13:54→21:44)
[2022-08-24] MEDS: PIPERACILLIN/TAZOB 3.375 GM 3.375 GM in DEXTROSE 5%-WATER - 50 ML IVPB SCH ×2 (15:38→19:01)
[2022-08-24 15:42] LABS: BASO % 0.2 % (0-2.0); EOS % 0.2 % (0-4.5); HEMATOCRIT 26.1 % (35.4-49); HEMOGLOBIN 8.8 GM/dL (11.7-16.9); LYMPH % 7.9 % (8-40); MCHC 33.6 g/dl (32.0-35.9); MEAN CELL VOLUME 86.3 fl (80-96); MEAN PLT VOLUME 9.6 fl (7.5-11.1); NEUT % 80.7 % (42.8-82.8); PLATELET COUNT 160 10^3/uL (134-434); RBC 3.02 M/mm3 (4.00-5.60); RDW 17.4 % (11.9-15.9); WHITE BLOOD COUNT 10.8 K/mm3 (4.0-10.0)
[2022-08-24 16:27] LABS: ALBUMIN 2.1 g/dl (3.4-5.0); BLOOD UREA NITROGEN 18.9 mg/dL (7-18); CALCIUM 9.1 mg/dL (8.5-10.1)
[2022-08-24 16:30] LABS: CREATININE 1.5 mg/dL (0.55-1.3)
[2022-08-24 16:32] LABS: BILIRUBIN,TOTAL 0.8 mg/dL (0.2-1); TOT PROT 5.6 g/dl (6.4-8.2)
[2022-08-25] MEDS: PIPERACILLIN/TAZOB 3.375 GM 3.375 GM in DEXTROSE 5%-WATER - 50 ML IVPB SCH ×3 (01:11→17:41)
[2022-08-25] MEDS: ACETAMINOPHEN 500 MG TABLET (FP) PO SCH (05:17)
[2022-08-25] MEDS: LACTATED RINGERS SOLUTION 1,000 ML/1,000 ML INFUS.BAG IV SCH ×2 (06:24→17:41)
[2022-08-25 09:34] LABS: BASO % 0.3 % (0-2.0); EOS % 0.2 % (0-4.5); HEMATOCRIT 25.5 % (35.4-49); HEMOGLOBIN 8.5 GM/dL (11.7-16.9); LYMPH % 11.3 % (8-40); MCHC 33.4 g/dl (32.0-35.9); MEAN CELL VOLUME 86.7 fl (80-96); MEAN PLT VOLUME 9.4 fl (7.5-11.1); MONO % 12.8 % (3.8-10.2); NEUT % 75.4 % (42.8-82.8); PLATELET COUNT 158 10^3/uL (134-434); RBC 2.94 M/mm3 (4.00-5.60); RDW 17.3 % (11.9-15.9); WHITE BLOOD COUNT 10.6 K/mm3 (4.0-10.0)
[2022-08-25] MEDS: VANCOMYCIN/WATER FOR INJ (PEG) 1,000 MG/200 ML BAG IVPB SCH (09:39)
[2022-08-25] MEDS ORDERED: PIPERACILLIN/TAZOBACTAM 3.375 GM VIAL IVPB ONE (09:43)
[2022-08-25] MEDS: ENOXAPARIN NA (PORCINE) 30 MG/0.3 ML DISP.SYRIN SQ SCH (09:48)
[2022-08-25 10:06] LABS: CREATININE 1.5 mg/dL (0.55-1.3); TOT PROT 5.7 g/dl (6.4-8.2)
[2022-08-25 10:07] LABS: BILIRUBIN,TOTAL 0.8 mg/dL (0.2-1); BLOOD UREA NITROGEN 19.3 mg/dL (7-18); CALCIUM 9.3 mg/dL (8.5-10.1)
[2022-08-26] MEDS: LACTATED RINGERS SOLUTION 1,000 ML/1,000 ML INFUS.BAG IV SCH ×2 (00:39→14:09)
[2022-08-26] MEDS: PIPERACILLIN/TAZOB 3.375 GM 3.375 GM in DEXTROSE 5%-WATER - 50 ML IVPB SCH ×2 (01:55→10:12)
[2022-08-26] MEDS ORDERED: CLOPIDOGREL BISULFATE 75 MG TABLET (FP) PO SCH (10:00)
[2022-08-26] MEDS ORDERED: ASPIRIN COATED 81 MG TABLET.EC PO SCH (10:00)
[2022-08-26 10:32] LABS: BLOOD UREA NITROGEN 19.8 mg/dL (7-18)
[2022-08-26 10:37] LABS: BILIRUBIN,TOTAL 0.6 mg/dL (0.2-1)
[2022-08-26 10:38] LABS: CREATININE 1.3 mg/dL (0.55-1.3)
[2022-08-26 10:40] LABS: TOT PROT 5.9 g/dl (6.4-8.2)
[2022-08-26] MEDS: ENOXAPARIN NA (PORCINE) 30 MG/0.3 ML DISP.SYRIN SQ SCH (11:17)
[2022-08-26] MEDS ORDERED: VANCOMYCIN/WATER FOR INJ (PEG) 1,000 MG/200 ML BAG IVPB SCH (12:00)
[2022-08-26 14:50] VITALS: RESP 18
[2022-08-26] MEDS: AMOX TR/POT CLAV 875MG/125MG TABLETS (FP) PO SCH ×2 (17:16→17:33)
[2022-08-26] MEDS ORDERED: ONDANSETRON 4 MG/2 ML VIAL IVPUSH ONE (17:36)
[2022-08-26 22:20] VITALS: BP 138/89; PULSE 90; TEMP 98.6
== END 2022-08-27 00:15 | DRG 853 ==
LOC: JER 15:49 → JERBED 22:49 → J7W 08-07 17:48 → J4S 08-08 14:56 → J5S 08-20 16:31
PROVIDERS: ADMIT Internal Medicine; ATTEND Family Medicine
PROC: 0F9430Z Drainage of Gallbladder with Drainage Device, Percutaneous Approach (ICD-10-PCS; 2022-08-09)
PROC: 0FC98ZZ Extirpation of Matter from Common Bile Duct, Via Natural or Artificial Opening Endoscopic (ICD-10-PCS; 2022-08-17)
PROC: BF10YZZ Fluoroscopy of Bile Ducts using Other Contrast (ICD-10-PCS; 2022-08-17)
PROC: 0FT44ZZ Resection of Gallbladder, Percutaneous Endoscopic Approach (ICD-10-PCS; principal; 2022-08-23 11:30)
PROC: 02HV33Z Insertion of Infusion Device into Superior Vena Cava, Percutaneous Approach (ICD-10-PCS; 2022-08-26)
DX: R78.81 Bacteremia (principal); J96.91 Respiratory failure, unspecified with hypoxia; T85.518A Breakdown (mechanical) of other gastrointestinal prosthetic devices, implants and grafts, initial encounter; N17.9 Acute kidney failure, unspecified; E87.1 Hypo-osmolality and hyponatremia; J98.11 Atelectasis; K80.40 Calculus of bile duct with cholecystitis, unspecified, without obstruction; I25.10 Atherosclerotic heart disease of native coronary artery without angina pectoris; F31.9 Bipolar disorder, unspecified; E11.9 Type 2 diabetes mellitus without complications; I13.10 Hypertensive heart and chronic kidney disease without heart failure, with stage 1 through stage 4 chronic kidney disease, or unspecified chronic kidney disease; E78.5 Hyperlipidemia, unspecified; E87.5 Hyperkalemia; E83.52 Hypercalcemia; R50.82 Postprocedural fever; Y83.9 Surgical procedure, unspecified as the cause of abnormal reaction of the patient, or of later complication, without mention of misadventure at the time of the procedure; N18.9 Chronic kidney disease, unspecified
CPT/HCPCS: 0241U-QW; 36415; 36569; 47490; 70450-TC; 71045-TC-FY; 74176-TC; 74301-FY; 76000-TC-FY; 76705-TC; 76775-TC; 77001-TC-FY; 80048; 80053; 80076; 81003; 82150; 82248; 82550; 82570; 82962; 83690; 83735; 83970; 84133; 84300; 85025; 85027; 85610; 85730; 86140; 86850; 86900; 86901; 87040; 87070; 87075; 87077; 87086; 87102; 87116; 87186; 87205; 87206; 87210; 88304-TC; 93005; 93010; 93306-TC; 93971; 94760; 97116-GP; 97162-GP; 99291; C1751; C9803-CS; G0480; J0878; J1644; U0003; U0005

== ENCOUNTER 2022-08-31 15:05 | Observation (INO) | payer OTHER ==
[2022-08-31 15:37] VITALS: BMI 23.7
[2022-08-31] MEDS ORDERED: OXYMETAZOLINE 0.05% NASAL SOLUTION 15 ML BOTTLE NS PRN (15:59)
[2022-08-31 16:52] LABS: BASO % 0.4 % (0-2.0); EOS % 1.6 % (0-4.5); HEMATOCRIT 29.7 % (35.4-49); HEMOGLOBIN 9.5 GM/dL (11.7-16.9); LYMPH % 12.3 % (8-40); MCHC 32.2 g/dl (32.0-35.9); MEAN CELL VOLUME 86.9 fl (80-96); MEAN PLT VOLUME 9.4 fl (7.5-11.1); MONO % 6.2 % (3.8-10.2); NEUT % 79.5 % (42.8-82.8); PLATELET COUNT 353 10^3/uL (134-434); RBC 3.41 M/mm3 (4.00-5.60); RDW 17.2 % (11.9-15.9); WHITE BLOOD COUNT 10.6 K/mm3 (4.0-10.0)
[2022-08-31 16:58] LABS: INR 1.14 (0.83-1.09); PROTHROMBIN TIME (PATIENT) 13.2 SEC (9.7-13.0)
[2022-08-31 17:01] LABS: ACTIVATED PTT 34.4 SECONDS (25.2-36.5)
[2022-08-31] MEDS ORDERED: TRANEXAMIC ACID 1000 MG/10 ML VIAL IVPUSH ONE (17:15)
[2022-08-31 17:16] LABS: CALCIUM 9.4 mg/dL (8.5-10.1)
[2022-08-31 17:20] LABS: CREATININE 1.3 mg/dL (0.55-1.3)
[2022-08-31 17:22] LABS: BILIRUBIN,TOTAL 0.4 mg/dL (0.2-1)
[2022-08-31] MEDS ORDERED: TRANEXAMIC ACID 1000 MG/10 ML VIAL ONE (17:23)
[2022-08-31 17:28] LABS: ALBUMIN 2.6 g/dl (3.4-5.0)
[2022-08-31 20:50] LABS: BASO % 0.5 % (0-2.0); EOS % 0.8 % (0-4.5); HEMATOCRIT 27.7 % (35.4-49); LYMPH % 11.4 % (8-40); MCHC 32.4 g/dl (32.0-35.9); MEAN CELL VOLUME 86.4 fl (80-96); MEAN PLT VOLUME 9.1 fl (7.5-11.1); MONO % 6.6 % (3.8-10.2); NEUT % 80.7 % (42.8-82.8); PLATELET COUNT 330 10^3/uL (134-434); RBC 3.21 M/mm3 (4.00-5.60); RDW 17.1 % (11.9-15.9); WHITE BLOOD COUNT 11.2 K/mm3 (4.0-10.0)
[2022-09-01] MEDS ORDERED: levETIRAcetam 500 MG/5 ML ORAL SOLUTION (UNIT-DOSE CUPS) PO SCH ×2 (00:13→22:00)
[2022-09-01] MEDS ORDERED: DOCUSATE SODIUM 100 MG CAPSULE (FP) PO PRN (00:22)
[2022-09-01] MEDS ORDERED: oxyCODONE HCL 5 MG TABLET PO PRN (00:22)
[2022-09-01] MEDS ORDERED: LURASIDONE HCL 40 MG TABLET PO SCH (08:00)
[2022-09-01] MEDS ORDERED: TAMSULOSIN HCL 0.4 MG CAP PO SCH (08:30)
[2022-09-01 08:40] LABS: CALCIUM 9.4 mg/dL (8.5-10.1)
[2022-09-01 08:41] LABS: BASO % 0.4 % (0-2.0); BLOOD UREA NITROGEN 17.5 mg/dL (7-18); EOS % 1.6 % (0-4.5); HEMATOCRIT 25.5 % (35.4-49); HEMOGLOBIN 8.6 GM/dL (11.7-16.9); LYMPH % 17.2 % (8-40); MAGNESIUM 1.6 mg/dL (1.8-2.4); MCH 28.7 pg (25.7-33.7); MCHC 33.6 g/dl (32.0-35.9); MEAN CELL VOLUME 85.4 fl (80-96); NEUT % 72.8 % (42.8-82.8); PLATELET COUNT 307 10^3/uL (134-434); RBC 2.98 M/mm3 (4.00-5.60); RDW 16.9 % (11.9-15.9); WHITE BLOOD COUNT 8.1 K/mm3 (4.0-10.0)
[2022-09-01 08:44] LABS: CREATININE 1.3 mg/dL (0.55-1.3); PHOSPHOROUS 3.9 mg/dL (2.5-4.9)
[2022-09-01] MEDS ORDERED: URSODIOL 300 MG CAPSULE PO SCH (09:00)
[2022-09-01] MEDS ORDERED: SERTRALINE HCL 25 MG TABLET (FP) PO SCH (10:00)
[2022-09-01] MEDS ORDERED: VANCOMYCIN 1 GM in D5W (PRE-DOCKED) 1,000 MG/250 ML IVPB SCH (10:00)
[2022-09-01] MEDS ORDERED: ASCORBIC ACID 500 MG TABLET (FP) PO SCH (10:00)
[2022-09-01] MEDS ORDERED: ZINC SULFATE 220 MG CAPSULE (FP) PO SCH (10:00)
[2022-09-01] MEDS ORDERED: PANTOPRAZOLE 40 MG TABLET PO SCH (10:00)
[2022-09-01 10:19] VITALS: BP 106/75; PULSE 100; RESP 20; TEMP 98.5
[2022-09-01] MEDS ORDERED: PANTOPRAZOLE 40 MG TABLET PO ONE (10:50)
[2022-09-01] MEDS ORDERED: VANCOMYCIN/WATER FOR INJ (PEG) 1,000 MG/200 ML BAG IVPB ONE (10:50)
[2022-09-01] MEDS ORDERED: TAMSULOSIN HCL 0.4 MG CAP ONE (10:50)
[2022-09-01] MEDS ORDERED: ASCORBIC ACID 500 MG TABLET (FP) ONE (10:50)
[2022-09-01] MEDS ORDERED: ZINC SULFATE 220 MG CAPSULE (FP) ONE (10:50)
[2022-09-01 11:43] LABS: PH,URINE 5.5 (5.0-8.0); URINE APPEARANCE CLEAR; URINE BILIRUBIN NEGATIVE (NEGATIVE); URINE COLOR YELLOW; URINE GLUCOSE (UA) NEGATIVE (NEGATIVE); URINE KETONE NEGATIVE (NEGATIVE); URINE LEUK ESTERASE NEGATIVE (NEGATIVE); URINE NITRITE NEGATIVE (NEGATIVE); URINE PROTEIN NEGATIVE (NEGATIVE); URINE UROBILINOGEN 0.2 mg/dL (0.2-1.0)
== END 2022-09-01 15:04 ==
LOC: JER 15:05 → JERBED 20:04
PROVIDERS: ADMIT Internal Medicine; ATTEND Family Medicine
PROC: 3E033GC Introduction of Other Therapeutic Substance into Peripheral Vein, Percutaneous Approach (ICD-10-PCS; principal; 2022-08-31)
PROC: 3E03329 Introduction of Other Anti-infective into Peripheral Vein, Percutaneous Approach (ICD-10-PCS; 2022-08-31)
PROC: 3E033GC Introduction of Other Therapeutic Substance into Peripheral Vein, Percutaneous Approach (ICD-10-PCS; 2022-08-31)
PROC: 3E03329 Introduction of Other Anti-infective into Peripheral Vein, Percutaneous Approach (ICD-10-PCS; 2022-08-31)
DX: R04.0 Epistaxis (principal); R73.03 Prediabetes; W18.39XA Other fall on same level, initial encounter; Y93.89 Activity, other specified; Y92.099 Unspecified place in other non-institutional residence as the place of occurrence of the external cause; I49.9 Cardiac arrhythmia, unspecified; D64.89 Other specified anemias; F31.9 Bipolar disorder, unspecified; R42 Dizziness and giddiness; Z95.5 Presence of coronary angioplasty implant and graft; Z86.711 Personal history of pulmonary embolism; G62.9 Polyneuropathy, unspecified; M92.529 Juvenile osteochondrosis of tibia tubercle, unspecified leg; K76.0 Fatty (change of) liver, not elsewhere classified
CPT/HCPCS: 0241U-QW; 36415; 70450-TC; 70486-TC; 71045-TC-FY; 72125-TC; 80048; 80053; 81003; 83735; 84100; 84484; 85025; 85610; 85730; 86850; 86900; 86901; 93005; 93010; 96374; 96375; 99285-25; G0378

== ENCOUNTER 2023-08-26 14:20 | Inpatient (IN) | payer OTHER ==
[2023-08-26 14:35] VITALS: BMI 27.8
[2023-08-26] MEDS: ONDANSETRON 4 MG/2 ML VIAL IVPUSH ONE (15:30)
[2023-08-26] MEDS: SODIUM CHLORIDE 0.9% 500 ML INFUS.BAG IV ONE (15:30)
[2023-08-26] MEDS: ACETAMINOPHEN 1000 MG/100 ML BAG IVPB ONE (15:30)
[2023-08-26 15:36] LABS: BASO % 0.2 % (0-2.0); EOS % 4.5 % (0-4.5); HEMATOCRIT 37.1 % (35.4-49); HEMOGLOBIN 12.7 GM/dL (11.7-16.9); LYMPH % 16.5 % (8-40); MCH 30.8 pg (25.7-33.7); MCHC 34.1 g/dl (32.0-35.9); MEAN CELL VOLUME 90.3 fl (80-96); MEAN PLT VOLUME 9.2 fl (7.5-11.1); MONO % 11.1 % (3.8-10.2); NEUT % 67.7 % (42.8-82.8); PLATELET COUNT 145 10^3/uL (134-434); RBC 4.11 M/mm3 (4.00-5.60); RDW 16.3 % (11.9-15.9); WHITE BLOOD COUNT 8.2 K/mm3 (4.0-10.0)
[2023-08-26 15:41] LABS: INR 1.05 (0.83-1.09); PROTHROMBIN TIME (PATIENT) 12.2 SEC (9.7-13.0)
[2023-08-26 15:44] LABS: ACTIVATED PTT 21.4 SECONDS (25.2-36.5)
[2023-08-26 16:04] LABS: POTASSIUM 3.7 mmol/L (3.5-5.1)
[2023-08-26 16:05] LABS: ALBUMIN 3.2 g/dl (3.4-5.0)
[2023-08-26 16:06] LABS: CALCIUM 8.8 mg/dL (8.5-10.1)
[2023-08-26 16:07] LABS: BLOOD UREA NITROGEN 48.8 mg/dL (7-18)
[2023-08-26 16:11] LABS: BILIRUBIN,TOTAL 0.8 mg/dL (0.2-1); TOT PROT 7.1 g/dl (6.4-8.2)
[2023-08-26] MEDS: morphine SULFATE 4 MG/ML VIAL IVPUSH ONE (17:20)
[2023-08-26] MEDS ORDERED: ACETAMINOPHEN 1000 MG/100 ML BAG IVPB PRN (23:26)
[2023-08-27 05:57] LABS: BASO % 0.2 % (0-2.0); EOS % 2.9 % (0-4.5); HEMATOCRIT 37.2 % (35.4-49); HEMOGLOBIN 12.3 GM/dL (11.7-16.9); LYMPH % 12.6 % (8-40); MCH 30.1 pg (25.7-33.7); MCHC 33.1 g/dl (32.0-35.9); MEAN PLT VOLUME 9.5 fl (7.5-11.1); MONO % 9.7 % (3.8-10.2); NEUT % 74.6 % (42.8-82.8); PLATELET COUNT 134 10^3/uL (134-434); RBC 4.09 M/mm3 (4.00-5.60); RDW 16.4 % (11.9-15.9)
[2023-08-27 06:16] LABS: POTASSIUM 3.8 mmol/L (3.5-5.1)
[2023-08-27 06:17] LABS: CALCIUM 8.7 mg/dL (8.5-10.1)
[2023-08-27 06:18] LABS: BLOOD UREA NITROGEN 41.7 mg/dL (7-18); MAGNESIUM 1.6 mg/dL (1.8-2.4)
[2023-08-27 06:21] LABS: CREATININE 1.7 mg/dL (0.55-1.3); PHOSPHOROUS 2.3 mg/dL (2.5-4.9)
[2023-08-27] MEDS: SODIUM CHLORIDE 0.45% 1,000 ML IV SCH (10:03)
[2023-08-27] MEDS ORDERED: MAGNESIUM SULFATE IN WATER 2 GM/50 ML IVPB IVPB ONE (10:05)
[2023-08-27] MEDS: MAGNESIUM SULF 50% (8.12 MEQ/2 ML-1 GM VIAL) IVPB ONE (10:10)
[2023-08-27] MEDS ORDERED: METOPROLOL TARTRATE 5 MG/5 ML VIAL IVPUSH PRN (17:27)
[2023-08-27] MEDS: HEPARIN NA (PORCINE) 5,000 UNITS/ML 1ML VIAL SQ SCH (22:31)
[2023-08-28] MEDS ORDERED: PANTOPRAZOLE SODIUM 40 MG in SODIUM CHLORIDE 100 ML IVPB SCH (10:00)
[2023-08-28] MEDS: METOPROLOL TARTRATE 5 MG/5 ML VIAL IVPB SCH (11:11)
[2023-08-28] MEDS: PANTOPRAZOLE SODIUM 40 MG VIAL IVPUSH SCH (11:12)
[2023-08-28] MEDS: AMINO ACIDS 4.25%/D5W 1,000 ML IV SCH (11:39)
[2023-08-28 12:31] LABS: BASO % 0.1 % (0-2.0); EOS % 0.7 % (0-4.5); HEMATOCRIT 39.3 % (35.4-49); HEMOGLOBIN 12.9 GM/dL (11.7-16.9); LYMPH % 10.4 % (8-40); MCH 29.9 pg (25.7-33.7); MCHC 32.7 g/dl (32.0-35.9); MEAN CELL VOLUME 91.3 fl (80-96); MEAN PLT VOLUME 9.1 fl (7.5-11.1); MONO % 9.1 % (3.8-10.2); NEUT % 79.7 % (42.8-82.8); PLATELET COUNT 156 10^3/uL (134-434); RDW 16.5 % (11.9-15.9); WHITE BLOOD COUNT 10.4 K/mm3 (4.0-10.0)
[2023-08-28 12:53] LABS: POTASSIUM 3.7 mmol/L (3.5-5.1)
[2023-08-28 12:55] LABS: ALBUMIN 3.3 g/dl (3.4-5.0); BLOOD UREA NITROGEN 31.1 mg/dL (7-18); CALCIUM 9.6 mg/dL (8.5-10.1); MAGNESIUM 2.2 mg/dL (1.8-2.4)
[2023-08-28 12:58] LABS: CREATININE 1.7 mg/dL (0.55-1.3)
[2023-08-28 13:00] LABS: BILIRUBIN,TOTAL 0.9 mg/dL (0.2-1); TOT PROT 7.4 g/dl (6.4-8.2)
[2023-08-28] MEDS: INSULIN ASPART SLIDING SCALE (NOVOLOG) 1 VIAL SQ SCH (17:40)
[2023-08-28] MEDS ORDERED: ACETAMINOPHEN 1000 MG/100 ML BAG IVPB PRN (18:51)
[2023-08-28] MEDS: ACETAMINOPHEN 1000 MG/100 ML BAG IVPB ONE (19:20)
[2023-08-29 08:02] LABS: EPI CELLS 4 /uL (0-25.1); HYALINE CASTS 0 /uL (0-3.1); PH,URINE 5.5 (5.0-8.0); URINE APPEARANCE CLEAR; URINE BACTERIA 1 /uL (0-1359); URINE BILIRUBIN NEGATIVE (NEGATIVE); URINE COLOR YELLOW; URINE GLUCOSE (UA) NEGATIVE (NEGATIVE); URINE KETONE NEGATIVE (NEGATIVE); URINE LEUK ESTERASE NEGATIVE (NEGATIVE); URINE NITRITE NEGATIVE (NEGATIVE); URINE PROTEIN 3+ (NEGATIVE); URINE RBC 16 /uL (0-23.9); URINE UROBILINOGEN 0.2 mg/dL (0.2-1.0); URINE WBC 3 /uL (0-25.8)
[2023-08-29 08:25] LABS: BASO % 0.3 % (0-2.0); EOS % 0.5 % (0-4.5); HEMATOCRIT 37.7 % (35.4-49); HEMOGLOBIN 12.5 GM/dL (11.7-16.9); LYMPH % 14.1 % (8-40); MCH 30.3 pg (25.7-33.7); MCHC 33.1 g/dl (32.0-35.9); MEAN CELL VOLUME 91.4 fl (80-96); MEAN PLT VOLUME 9.2 fl (7.5-11.1); MONO % 10.6 % (3.8-10.2); NEUT % 74.5 % (42.8-82.8); PLATELET COUNT 167 10^3/uL (134-434); RBC 4.12 M/mm3 (4.00-5.60); RDW 16.1 % (11.9-15.9); WHITE BLOOD COUNT 10.2 K/mm3 (4.0-10.0)
[2023-08-29 08:29] LABS: POTASSIUM 3.7 mmol/L (3.5-5.1)
[2023-08-29 08:34] LABS: CALCIUM 9.6 mg/dL (8.5-10.1)
[2023-08-29 08:35] LABS: ALBUMIN 3.1 g/dl (3.4-5.0); BLOOD UREA NITROGEN 32.2 mg/dL (7-18); MAGNESIUM 2.1 mg/dL (1.8-2.4)
[2023-08-29 08:37] LABS: CREATININE 1.7 mg/dL (0.55-1.3)
[2023-08-29 08:39] LABS: BILIRUBIN,TOTAL 0.9 mg/dL (0.2-1)
[2023-08-29 08:40] LABS: TOT PROT 7.3 g/dl (6.4-8.2)
[2023-08-30 08:19] LABS: BASO % 0.4 % (0-2.0); EOS % 2.1 % (0-4.5); HEMATOCRIT 36.4 % (35.4-49); HEMOGLOBIN 12.1 GM/dL (11.7-16.9); LYMPH % 19.4 % (8-40); MCH 29.8 pg (25.7-33.7); MCHC 33.2 g/dl (32.0-35.9); MEAN PLT VOLUME 8.8 fl (7.5-11.1); MONO % 8.8 % (3.8-10.2); NEUT % 69.3 % (42.8-82.8); PLATELET COUNT 152 10^3/uL (134-434); RBC 4.04 M/mm3 (4.00-5.60); RDW 16.1 % (11.9-15.9); WHITE BLOOD COUNT 8.4 K/mm3 (4.0-10.0)
[2023-08-30 08:29] LABS: POTASSIUM 3.5 mmol/L (3.5-5.1)
[2023-08-30 08:34] LABS: ALBUMIN 2.9 g/dl (3.4-5.0); BLOOD UREA NITROGEN 31.8 mg/dL (7-18); CALCIUM 9.1 mg/dL (8.5-10.1); MAGNESIUM 1.7 mg/dL (1.8-2.4)
[2023-08-30 08:37] LABS: BILIRUBIN,TOTAL 0.9 mg/dL (0.2-1); CREATININE 1.8 mg/dL (0.55-1.3); TOT PROT 6.7 g/dl (6.4-8.2)
[2023-08-30] MEDS: SERTRALINE HCL 50 MG TABLET (FP) PO SCH (16:50)
[2023-08-30] MEDS: ARIPiprazole 10 MG TABLET PO SCH (17:25)
[2023-08-30] MEDS: traZODone HCL 50 MG TABLET (FP) PO SCH (21:33)
[2023-08-30] MEDS: ATORVASTATIN CA 40 MG TABLET (FP) PO SCH (21:33)
[2023-08-30] MEDS: METOPROLOL TARTRATE 25 MG TABLET (FP) PO SCH (21:34)
[2023-08-30] MEDS: SENNOSIDES 8.6MG TABLET (FP) PO SCH (21:35)
[2023-08-30] MEDS ORDERED: METOPROLOL TARTRATE 25 MG TABLET (FP) PO SCH (22:00)
[2023-08-31 08:30] LABS: BASO % 0.4 % (0-2.0); EOS % 3.4 % (0-4.5); HEMATOCRIT 33.2 % (35.4-49); HEMOGLOBIN 11.3 GM/dL (11.7-16.9); LYMPH % 19.8 % (8-40); MCH 30.4 pg (25.7-33.7); MCHC 33.9 g/dl (32.0-35.9); MEAN CELL VOLUME 89.6 fl (80-96); MEAN PLT VOLUME 9.2 fl (7.5-11.1); MONO % 8.1 % (3.8-10.2); NEUT % 68.3 % (42.8-82.8); PLATELET COUNT 149 10^3/uL (134-434); RBC 3.71 M/mm3 (4.00-5.60); WHITE BLOOD COUNT 8.9 K/mm3 (4.0-10.0)
[2023-08-31 08:46] LABS: POTASSIUM 3.5 mmol/L (3.5-5.1)
[2023-08-31 08:47] LABS: CALCIUM 8.7 mg/dL (8.5-10.1)
[2023-08-31 08:49] LABS: ALBUMIN 2.6 g/dl (3.4-5.0); BLOOD UREA NITROGEN 36.3 mg/dL (7-18); MAGNESIUM 1.4 mg/dL (1.8-2.4)
[2023-08-31 08:51] LABS: CREATININE 1.8 mg/dL (0.55-1.3)
[2023-08-31 08:52] LABS: TOT PROT 6.2 g/dl (6.4-8.2)
[2023-08-31 08:53] LABS: BILIRUBIN,TOTAL 0.5 mg/dL (0.2-1)
[2023-08-31] MEDS: TAMSULOSIN HCL 0.4 MG CAP PO SCH (09:02)
[2023-08-31] MEDS: FAMOTIDINE 20 MG TABLET PO SCH (10:22)
[2023-08-31] MEDS: ALLOPURINOL 100 MG TABLET (FP) PO SCH (10:23)
[2023-08-31] MEDS: MAGNESIUM OXIDE 400 MG TABLET (FP) PO ONE (15:56)
[2023-08-31] MEDS: INSULIN (LEVEMIR) 100 UNITS/ML UNITS SQ SCH (22:29)
[2023-08-31] MEDS: SENNOSIDES 8.6MG TABLET (FP) PO SCH (22:30)
[2023-09-01] MEDS: ONDANSETRON *ODT* 4 MG TABLET SL ONE (00:38)
[2023-09-01 07:37] LABS: BASO % 0.5 % (0-2.0); EOS % 1.7 % (0-4.5); HEMATOCRIT 40.8 % (35.4-49); HEMOGLOBIN 13.6 GM/dL (11.7-16.9); LYMPH % 10.4 % (8-40); MCHC 33.3 g/dl (32.0-35.9); MEAN CELL VOLUME 90.2 fl (80-96); MONO % 6.8 % (3.8-10.2); NEUT % 80.6 % (42.8-82.8); PLATELET COUNT 193 10^3/uL (134-434); RBC 4.52 M/mm3 (4.00-5.60); RDW 15.8 % (11.9-15.9); WHITE BLOOD COUNT 11.4 K/mm3 (4.0-10.0)
[2023-09-01 07:55] LABS: POTASSIUM 3.9 mmol/L (3.5-5.1)
[2023-09-01 07:56] LABS: CALCIUM 9.3 mg/dL (8.5-10.1)
[2023-09-01 07:57] LABS: BLOOD UREA NITROGEN 36.7 mg/dL (7-18)
[2023-09-01] MEDS ORDERED: ONDANSETRON 4 MG/2 ML VIAL IVPUSH PRN (08:22)
[2023-09-01] MEDS: TRIMETHOBENZAMIDE HCL 200MG/2ML INJ IM ONE ×2 (08:25→10:53)
[2023-09-01] MEDS: LACTATED RINGERS SOLUTION 1,000 ML/1,000 ML INFUS.BAG IV SCH (08:25)
[2023-09-01] MEDS ORDERED: PANTOPRAZOLE 40 MG TABLET PO SCH ×2 (10:00)
[2023-09-01] MEDS: PANTOPRAZOLE SODIUM 40 MG VIAL IVPUSH SCH (10:56)
[2023-09-01] MEDS: INSULIN (LEVEMIR) 100 UNITS/ML UNITS SQ SCH (11:38)
[2023-09-02 07:24] LABS: BASO % 0.4 % (0-2.0); EOS % 2.7 % (0-4.5); HEMATOCRIT 35.1 % (35.4-49); HEMOGLOBIN 11.6 GM/dL (11.7-16.9); LYMPH % 24.9 % (8-40); MCH 29.9 pg (25.7-33.7); MCHC 33.1 g/dl (32.0-35.9); MEAN CELL VOLUME 90.4 fl (80-96); MEAN PLT VOLUME 9.3 fl (7.5-11.1); MONO % 8.7 % (3.8-10.2); NEUT % 63.3 % (42.8-82.8); PLATELET COUNT 156 10^3/uL (134-434); RBC 3.88 M/mm3 (4.00-5.60); RDW 16.3 % (11.9-15.9); WHITE BLOOD COUNT 6.6 K/mm3 (4.0-10.0)
[2023-09-02 07:39] LABS: POTASSIUM 3.4 mmol/L (3.5-5.1)
[2023-09-02 07:54] LABS: CALCIUM 8.8 mg/dL (8.5-10.1)
[2023-09-02 07:55] LABS: ALBUMIN 2.8 g/dl (3.4-5.0); BLOOD UREA NITROGEN 34.2 mg/dL (7-18)
[2023-09-02 07:58] LABS: CREATININE 1.7 mg/dL (0.55-1.3)
[2023-09-02 07:59] LABS: BILIRUBIN,TOTAL 0.7 mg/dL (0.2-1); TOT PROT 6.4 g/dl (6.4-8.2)
[2023-09-02] MEDS: POTASSIUM CHLORIDE TABS 20 MEQ TABLET.ER (FP) PO ONE (18:24)
[2023-09-02] MEDS: INSULIN (LEVEMIR) 100 UNITS/ML UNITS SQ SCH (21:28)
[2023-09-03 08:45] LABS: POTASSIUM 4.3 mmol/L (3.5-5.1)
[2023-09-03 08:49] LABS: BLOOD UREA NITROGEN 29.6 mg/dL (7-18); CALCIUM 9.1 mg/dL (8.5-10.1)
[2023-09-03 08:53] LABS: CREATININE 1.6 mg/dL (0.55-1.3)
[2023-09-03] MEDS: PANTOPRAZOLE 40 MG TABLET PO SCH (10:02)
[2023-09-03 17:27] VITALS: BP 102/54; PULSE 75; RESP 16; TEMP 98.1
== END 2023-09-03 18:49 | DRG 389 ==
LOC: JER 14:20 → OBSVTOIN 15:01 → JERBED 15:01 → J4S 08-27 10:30
PROVIDERS: ADMIT Student in an Organized Health Care Education/Training Program; ATTEND Nurse Practitioner
PROC: 0D9670Z Drainage of Stomach with Drainage Device, Via Natural or Artificial Opening (ICD-10-PCS; principal; 2023-08-26)
DX: K56.7 Ileus, unspecified (principal); I50.32 Chronic diastolic (congestive) heart failure; I25.10 Atherosclerotic heart disease of native coronary artery without angina pectoris; E78.5 Hyperlipidemia, unspecified; E11.42 Type 2 diabetes mellitus with diabetic polyneuropathy; I11.0 Hypertensive heart disease with heart failure; K76.0 Fatty (change of) liver, not elsewhere classified; F31.9 Bipolar disorder, unspecified; M92.529 Juvenile osteochondrosis of tibia tubercle, unspecified leg; E11.65 Type 2 diabetes mellitus with hyperglycemia; R11.2 Nausea with vomiting, unspecified
CPT/HCPCS: 0241U-QW; 36415; 71045-TC-FY; 74018-TC-FY; 74019-TC-FY; 74176-TC; 80048; 80053; 81003; 82962; 82977; 83036; 83605; 83690; 83735; 84100; 84484; 85025; 85610; 85730; 86850; 86900; 86901; 87086; 93005; 93010; 94010; 97116-GP; 97161-GP; 99285-25; J0131; J1644; Q0162

== ENCOUNTER 2023-09-06 01:16 | Inpatient (IN) | payer OTHER ==
[2023-09-06] MEDS: SODIUM CHLORIDE 0.9% 500 ML INFUS.BAG IV ONE (01:54)
[2023-09-06] MEDS ORDERED: ONDANSETRON 4 MG/2 ML VIAL ONE (01:57)
[2023-09-06] MEDS ORDERED: PANTOPRAZOLE SODIUM 40 MG VIAL ONE (01:58)
[2023-09-06] MEDS: PANTOPRAZOLE SODIUM 40 MG VIAL IVPUSH ONE ×2 (02:03→02:05)
[2023-09-06] MEDS: ONDANSETRON 4 MG/2 ML VIAL IVPUSH ONE (02:03)
[2023-09-06 02:06] LABS: BASO % 0.3 % (0-2.0); EOS % 0.8 % (0-4.5); HEMATOCRIT 23.6 % (35.4-49); HEMOGLOBIN 7.9 GM/dL (11.7-16.9); LYMPH % 5.5 % (8-40); MCH 29.9 pg (25.7-33.7); MCHC 33.5 g/dl (32.0-35.9); MEAN CELL VOLUME 89.2 fl (80-96); MEAN PLT VOLUME 9.7 fl (7.5-11.1); MONO % 5.7 % (3.8-10.2); NEUT % 87.7 % (42.8-82.8); PLATELET COUNT 192 10^3/uL (134-434); RBC 2.64 M/mm3 (4.00-5.60); RDW 16.4 % (11.9-15.9)
[2023-09-06 02:13] LABS: INR 1.2 (0.83-1.09); PROTHROMBIN TIME (PATIENT) 13.9 SEC (9.7-13.0)
[2023-09-06 02:25] LABS: POTASSIUM 4.1 mmol/L (3.5-5.1)
[2023-09-06 02:27] LABS: ALBUMIN 2.8 g/dl (3.4-5.0); CALCIUM 9.2 mg/dL (8.5-10.1)
[2023-09-06 02:32] LABS: BILIRUBIN,TOTAL 0.3 mg/dL (0.2-1); TOT PROT 5.9 g/dl (6.4-8.2)
[2023-09-06 02:40] LABS: BLOOD UREA NITROGEN 66.7 mg/dL (7-18)
[2023-09-06] MEDS: PANTOPRAZOLE SODIUM 80 MG in SODIUM CHLORIDE 100 ML IVPB SCH (02:57)
[2023-09-06] MEDS: SODIUM CHLORIDE 500 ML IV STA (05:38)
[2023-09-06] MEDS ORDERED: INSULIN ASPART SLIDING SCALE (NOVOLOG) 1 VIAL SQ SCH (07:00)
[2023-09-06] MEDS: INSULIN ASPART SLIDING SCALE (NOVOLOG) 1 VIAL SQ SCH (08:26)
[2023-09-06] MEDS ORDERED: MIDAZOLAM HCL 2 MG/2 ML SINGLE DOSE VIAL ONE (11:44)
[2023-09-06] MEDS: ERYTHROMYCIN IVPB ONE (13:01)
[2023-09-06] MEDS: SODIUM CHLORIDE IVPB ONE (13:01)
[2023-09-06] MEDS: ERYTHROMYCIN *INJECTION* 500 MG VIAL IVPB ONE (13:03)
[2023-09-06 13:30] LABS: BASO % 0.3 % (0-2.0); EOS % 1.3 % (0-4.5); HEMATOCRIT 26.3 % (35.4-49); HEMOGLOBIN 8.9 GM/dL (11.7-16.9); LYMPH % 12.9 % (8-40); MCH 30.3 pg (25.7-33.7); MCHC 33.7 g/dl (32.0-35.9); MEAN CELL VOLUME 90.1 fl (80-96); MEAN PLT VOLUME 9.4 fl (7.5-11.1); MONO % 6.7 % (3.8-10.2); NEUT % 78.8 % (42.8-82.8); PLATELET COUNT 145 10^3/uL (134-434); RBC 2.93 M/mm3 (4.00-5.60); RDW 15.6 % (11.9-15.9); WHITE BLOOD COUNT 11.4 K/mm3 (4.0-10.0)
[2023-09-06 13:57] LABS: POTASSIUM 4.1 mmol/L (3.5-5.1)
[2023-09-06 13:59] LABS: ALBUMIN 2.6 g/dl (3.4-5.0); CALCIUM 8.8 mg/dL (8.5-10.1); MAGNESIUM 1.3 mg/dL (1.8-2.4)
[2023-09-06 14:00] LABS: BLOOD UREA NITROGEN 64.2 mg/dL (7-18)
[2023-09-06 14:02] LABS: PHOSPHOROUS 3.2 mg/dL (2.5-4.9)
[2023-09-06 14:04] LABS: BILIRUBIN,TOTAL 1.2 mg/dL (0.2-1); TOT PROT 5.6 g/dl (6.4-8.2)
[2023-09-06 14:16] LABS: CREATININE 1.9 mg/dL (0.55-1.3)
[2023-09-06] MEDS ORDERED: ACETAMINOPHEN 1000 MG/100 ML BAG IVPB PRN (14:43)
[2023-09-06 16:21] LABS: HEMATOCRIT 26.3 % (35.4-49); HEMOGLOBIN 9.1 GM/dL (11.7-16.9); MCH 30.8 pg (25.7-33.7); MCHC 34.4 g/dl (32.0-35.9); MEAN CELL VOLUME 89.4 fl (80-96); MEAN PLT VOLUME 9.2 fl (7.5-11.1); PLATELET COUNT 150 10^3/uL (134-434); RBC 2.95 M/mm3 (4.00-5.60); RDW 15.6 % (11.9-15.9); WHITE BLOOD COUNT 10.1 K/mm3 (4.0-10.0)
[2023-09-06] MEDS: MAGNESIUM SULF 50% (8.12 MEQ/2 ML-1 GM VIAL) IVPB ONE (18:40)
[2023-09-06 19:35] LABS: PH,URINE 5.5 (5.0-8.0); URINE APPEARANCE CLEAR; URINE BILIRUBIN NEGATIVE (NEGATIVE); URINE COLOR YELLOW; URINE GLUCOSE (UA) NEGATIVE (NEGATIVE); URINE KETONE NEGATIVE (NEGATIVE); URINE LEUK ESTERASE NEGATIVE (NEGATIVE); URINE NITRITE NEGATIVE (NEGATIVE); URINE PROTEIN NEGATIVE (NEGATIVE); URINE UROBILINOGEN 0.2 mg/dL (0.2-1.0)
[2023-09-06] MEDS ORDERED: INSULIN (NOVOLOG) ASPART 100 UNITS/ML 10ML VIAL ONE (21:22)
[2023-09-06] MEDS: METOPROLOL TARTRATE 25 MG TABLET (FP) PO SCH (21:35)
[2023-09-06] MEDS: traZODone HCL 50 MG TABLET (FP) PO SCH (21:35)
[2023-09-06] MEDS: ATORVASTATIN CA 40 MG TABLET (FP) PO SCH (21:35)
[2023-09-06] MEDS: SENNOSIDES 8.6MG TABLET (FP) PO SCH (21:35)
[2023-09-06] MEDS ORDERED: INSULIN (LEVEMIR) 100 UNITS/ML UNITS SQ SCH (22:00)
[2023-09-07 07:22] LABS: HEMATOCRIT 24.7 % (35.4-49); HEMOGLOBIN 8.5 GM/dL (11.7-16.9); MCH 30.9 pg (25.7-33.7); MCHC 34.4 g/dl (32.0-35.9); MEAN PLT VOLUME 9.3 fl (7.5-11.1); PLATELET COUNT 144 10^3/uL (134-434); RBC 2.74 M/mm3 (4.00-5.60); RDW 16.5 % (11.9-15.9); WHITE BLOOD COUNT 9.1 K/mm3 (4.0-10.0)
[2023-09-07 07:44] LABS: POTASSIUM 4.1 mmol/L (3.5-5.1)
[2023-09-07 07:46] LABS: ALBUMIN 2.6 g/dl (3.4-5.0); BLOOD UREA NITROGEN 45.8 mg/dL (7-18); CALCIUM 8.6 mg/dL (8.5-10.1); MAGNESIUM 1.9 mg/dL (1.8-2.4)
[2023-09-07 07:49] LABS: PHOSPHOROUS 3.5 mg/dL (2.5-4.9)
[2023-09-07 07:51] LABS: BILIRUBIN,TOTAL 0.8 mg/dL (0.2-1); TOT PROT 5.5 g/dl (6.4-8.2)
[2023-09-07] MEDS: TAMSULOSIN HCL 0.4 MG CAP PO SCH (09:28)
[2023-09-07] MEDS: SERTRALINE HCL 50 MG TABLET (FP) PO SCH (09:28)
[2023-09-07] MEDS: ALLOPURINOL 100 MG TABLET (FP) PO SCH (09:28)
[2023-09-07] MEDS: ARIPiprazole 10 MG TABLET PO SCH (09:28)
[2023-09-07] MEDS ORDERED: INSULIN (NOVOLOG) ASPART 100 UNITS/ML 10ML VIAL ONE ×3 (10:18→20:42)
[2023-09-07 13:55] LABS: HEMATOCRIT 23.3 % (35.4-49); HEMOGLOBIN 7.9 GM/dL (11.7-16.9); MCH 30.5 pg (25.7-33.7); MEAN CELL VOLUME 89.8 fl (80-96); MEAN PLT VOLUME 9.2 fl (7.5-11.1); PLATELET COUNT 144 10^3/uL (134-434); RBC 2.59 M/mm3 (4.00-5.60); RDW 16.2 % (11.9-15.9)
[2023-09-07 14:25] VITALS: BMI 34.0
[2023-09-07 15:42] LABS: HEMATOCRIT 24.3 % (35.4-49); HEMOGLOBIN 8.3 GM/dL (11.7-16.9); MCH 30.8 pg (25.7-33.7); MCHC 34.1 g/dl (32.0-35.9); MEAN CELL VOLUME 90.3 fl (80-96); MEAN PLT VOLUME 9.3 fl (7.5-11.1); PLATELET COUNT 144 10^3/uL (134-434); RBC 2.69 M/mm3 (4.00-5.60); RDW 16.2 % (11.9-15.9)
[2023-09-07] MEDS: INSULIN ASPART SLIDING SCALE (NOVOLOG) 1 VIAL SQ SCH (15:55)
[2023-09-07] MEDS: INSULIN (LEVEMIR) 100 UNITS/ML UNITS SQ SCH (21:13)
[2023-09-08 07:23] LABS: BASO % 0.4 % (0-2.0); EOS % 2.7 % (0-4.5); HEMATOCRIT 24.2 % (35.4-49); HEMOGLOBIN 8.2 GM/dL (11.7-16.9); LYMPH % 19.5 % (8-40); MCH 30.6 pg (25.7-33.7); MCHC 33.7 g/dl (32.0-35.9); MEAN CELL VOLUME 90.8 fl (80-96); MEAN PLT VOLUME 9.2 fl (7.5-11.1); MONO % 7.7 % (3.8-10.2); NEUT % 69.7 % (42.8-82.8); PLATELET COUNT 143 10^3/uL (134-434); RBC 2.67 M/mm3 (4.00-5.60); RDW 15.9 % (11.9-15.9); WHITE BLOOD COUNT 8.4 K/mm3 (4.0-10.0)
[2023-09-08 07:32] LABS: POTASSIUM 3.9 mmol/L (3.5-5.1)
[2023-09-08 07:42] LABS: ALBUMIN 2.6 g/dl (3.4-5.0); BLOOD UREA NITROGEN 34.1 mg/dL (7-18); CALCIUM 8.5 mg/dL (8.5-10.1); MAGNESIUM 1.7 mg/dL (1.8-2.4)
[2023-09-08 07:45] LABS: CREATININE 1.9 mg/dL (0.55-1.3); PHOSPHOROUS 3.4 mg/dL (2.5-4.9)
[2023-09-08 07:47] LABS: BILIRUBIN,TOTAL 0.7 mg/dL (0.2-1); TOT PROT 5.5 g/dl (6.4-8.2)
[2023-09-08] MEDS: MAGNESIUM 2GM/50ML STERILE WATER IVPB IVPB ONE (09:15)
[2023-09-08] MEDS: MAGNESIUM SULF 50% (8.12 MEQ/2 ML-1 GM VIAL) IVPB ONE (10:36)
[2023-09-08 14:57] LABS: HEMATOCRIT 24.6 % (35.4-49); HEMOGLOBIN 8.4 GM/dL (11.7-16.9); MCH 30.9 pg (25.7-33.7); MEAN CELL VOLUME 90.9 fl (80-96); MEAN PLT VOLUME 9.2 fl (7.5-11.1); PLATELET COUNT 143 10^3/uL (134-434); RDW 16.1 % (11.9-15.9); WHITE BLOOD COUNT 7.9 K/mm3 (4.0-10.0)
[2023-09-09 07:14] LABS: BASO % 0.3 % (0-2.0); EOS % 2.5 % (0-4.5); HEMATOCRIT 25.1 % (35.4-49); HEMOGLOBIN 8.4 GM/dL (11.7-16.9); LYMPH % 13.6 % (8-40); MCH 30.6 pg (25.7-33.7); MCHC 33.4 g/dl (32.0-35.9); MEAN CELL VOLUME 91.7 fl (80-96); MEAN PLT VOLUME 9.4 fl (7.5-11.1); NEUT % 76.6 % (42.8-82.8); PLATELET COUNT 146 10^3/uL (134-434); RBC 2.74 M/mm3 (4.00-5.60); RDW 16.2 % (11.9-15.9); WHITE BLOOD COUNT 7.8 K/mm3 (4.0-10.0)
[2023-09-09 07:32] LABS: POTASSIUM 3.8 mmol/L (3.5-5.1)
[2023-09-09 07:39] LABS: BLOOD UREA NITROGEN 24.2 mg/dL (7-18); MAGNESIUM 1.7 mg/dL (1.8-2.4)
[2023-09-09 07:40] LABS: ALBUMIN 2.7 g/dl (3.4-5.0)
[2023-09-09 07:42] LABS: PHOSPHOROUS 3.8 mg/dL (2.5-4.9)
[2023-09-09 07:43] LABS: CREATININE 1.7 mg/dL (0.55-1.3)
[2023-09-09 07:44] LABS: BILIRUBIN,TOTAL 0.8 mg/dL (0.2-1); TOT PROT 5.8 g/dl (6.4-8.2)
[2023-09-09] MEDS: PANTOPRAZOLE 40 MG TABLET PO SCH (09:18)
[2023-09-09] MEDS: POLYETHYLENE GLYCOL (HEALTHYLAX) 3350 17 GM PACKET PO SCH (09:18)
[2023-09-09] MEDS: MAGNESIUM 2GM/50ML STERILE WATER IVPB IVPB ONE (09:18)
[2023-09-09] MEDS: ACETAMINOPHEN 325 MG TABLET (FP) PO PRN (09:38)
[2023-09-09 12:40] LABS: HEMATOCRIT 24.6 % (35.4-49); HEMOGLOBIN 8.3 GM/dL (11.7-16.9); MCH 30.7 pg (25.7-33.7); MCHC 33.8 g/dl (32.0-35.9); MEAN PLT VOLUME 8.7 fl (7.5-11.1); PLATELET COUNT 153 10^3/uL (134-434); RDW 16.5 % (11.9-15.9); WHITE BLOOD COUNT 7.1 K/mm3 (4.0-10.0)
[2023-09-09] MEDS: ATORVASTATIN CA 40 MG TABLET (FP) PO SCH (21:53)
[2023-09-10] MEDS ORDERED: INSULIN ASPART SLIDING SCALE (NOVOLOG) 1 VIAL SQ ONE (06:43)
[2023-09-10] MEDS: TAMSULOSIN HCL 0.4 MG CAP PO SCH (08:57)
[2023-09-10] MEDS: ALLOPURINOL 100 MG TABLET (FP) PO SCH (09:02)
[2023-09-10 22:05] VITALS: RESP 18
[2023-09-10] MEDS: TRIMETHOBENZAMIDE HCL 200MG/2ML INJ IM ONE (22:25)
[2023-09-11 09:30] LABS: HEMATOCRIT 26.5 % (35.4-49); MCH 30.9 pg (25.7-33.7); MCHC 34.1 g/dl (32.0-35.9); MEAN CELL VOLUME 90.5 fl (80-96); MEAN PLT VOLUME 9.1 fl (7.5-11.1); PLATELET COUNT 172 10^3/uL (134-434); RBC 2.93 M/mm3 (4.00-5.60); RDW 16.7 % (11.9-15.9); WHITE BLOOD COUNT 8.1 K/mm3 (4.0-10.0)
[2023-09-11 09:56] VITALS: BP 109/73; PULSE 87; TEMP 98.1
[2023-09-11 09:57] LABS: POTASSIUM 3.9 mmol/L (3.5-5.1)
[2023-09-11 10:03] LABS: BLOOD UREA NITROGEN 20.2 mg/dL (7-18); CALCIUM 9.1 mg/dL (8.5-10.1)
[2023-09-11 10:06] LABS: CREATININE 1.6 mg/dL (0.55-1.3)
== END 2023-09-11 11:34 | DRG 378 ==
LOC: JER 01:16 → JERBED 02:52 → JICU 03:32 → J6S 09-09 18:56
PROVIDERS: ADMIT Internal Medicine Pulmonary Disease; ATTEND Internal Medicine
PROC: 30233N1 Transfusion of Nonautologous Red Blood Cells into Peripheral Vein, Percutaneous Approach (ICD-10-PCS; 2023-09-06)
PROC: 0DJ08ZZ Inspection of Upper Intestinal Tract, Via Natural or Artificial Opening Endoscopic (ICD-10-PCS; principal; 2023-09-06 11:00)
DX: K25.4 Chronic or unspecified gastric ulcer with hemorrhage (principal); D62 Acute posthemorrhagic anemia; I50.32 Chronic diastolic (congestive) heart failure; N17.9 Acute kidney failure, unspecified; I13.0 Hypertensive heart and chronic kidney disease with heart failure and stage 1 through stage 4 chronic kidney disease, or unspecified chronic kidney disease; K92.0 Hematemesis; E78.5 Hyperlipidemia, unspecified; I25.10 Atherosclerotic heart disease of native coronary artery without angina pectoris; E11.42 Type 2 diabetes mellitus with diabetic polyneuropathy; K31.7 Polyp of stomach and duodenum; K31.819 Angiodysplasia of stomach and duodenum without bleeding; N18.9 Chronic kidney disease, unspecified; E66.9 Obesity, unspecified; Z68.34 Body mass index [BMI] 34.0-34.9, adult; K59.00 Constipation, unspecified; Z95.5 Presence of coronary angioplasty implant and graft; K44.9 Diaphragmatic hernia without obstruction or gangrene
CPT/HCPCS: 36415; 36430; 71045-TC-FY; 76775-TC; 80048; 80051; 80053; 81003; 82272; 82570; 82962; 83735; 84100; 84484; 85025; 85027; 85610; 85730; 86850; 86900; 86901; 86922; 87635; 93005; 93010; 97116-GP; 97162-GP; 99291; P9058

== ENCOUNTER 2024-09-21 15:11 | Inpatient (IN) | payer OTHER ==
[2024-09-21 17:41] LABS: VENOUS BASE EXCESS -4.8 mmol/L (-2-2); VENOUS O2 SATURATION 43.1 % (70-80); VENOUS PCO2 45.3 mmHg (38-52); VENOUS PH 7.296 (7.310-7.410)
[2024-09-21 17:48] LABS: ABSOLUTE IMMATURE GRANULOCYTES 0.07 x10^3/uL (0.0-0.031); BASOPHILS # 0.04 x10^3/uL (0.01-0.08); EOSINOPHIL % 2.3 % (0.8-7.0); EOSINOPHILS # 0.19 x10^3/uL (0.04-0.54); HEMATOCRIT 35.6 % (40.1-51.0); MCHC 30.9 g/dl (32.3-36.5); MEAN CELL VOLUME 86.4 fl (79.0-92.2); MEAN PLT VOLUME 11.1 fl (9.4-12.4); MONOCYTE # 0.72 x10^3/uL (0.30-0.82); MONOCYTE % 8.8 % (5.3-12.2); PLATELET COUNT 172 x10^3/uL (163-337); RDW 16.7 % (12.2-16.6)
[2024-09-21 18:03] LABS: POTASSIUM 4.8 mmol/L (3.5-5.1)
[2024-09-21 18:06] LABS: ALBUMIN 3.3 g/dl (3.4-5.0); BLOOD UREA NITROGEN 37.2 mg/dL (7-18); CALCIUM 9.6 mg/dL (8.5-10.1)
[2024-09-21 18:09] LABS: CREATININE 1.8 mg/dL (0.55-1.3)
[2024-09-21 18:11] LABS: BILIRUBIN,TOTAL 0.4 mg/dL (0.2-1)
[2024-09-21 20:58] LABS: EPI CELLS 12 /uL (0-25.1); HYALINE CASTS 1 /uL (0-3.1); URINE APPEARANCE CLEAR; URINE BACTERIA 14 /uL (0-1359); URINE BILIRUBIN NEGATIVE (NEGATIVE); URINE COLOR YELLOW; URINE GLUCOSE (UA) NEGATIVE (NEGATIVE); URINE KETONE NEGATIVE (NEGATIVE); URINE LEUK ESTERASE NEGATIVE (NEGATIVE); URINE NITRITE NEGATIVE (NEGATIVE); URINE PROTEIN 1+ (NEGATIVE); URINE RBC 33 /uL (0-23.9); URINE UROBILINOGEN 0.2 mg/dL (0.2-1.0); URINE WBC 5 /uL (0-25.8)
[2024-09-21 21:14] LABS: POTASSIUM 4.5 mmol/L (3.5-5.1)
[2024-09-21 21:19] LABS: CALCIUM 9.1 mg/dL (8.5-10.1)
[2024-09-21 23:04] VITALS: BMI 35.9
[2024-09-22 07:05] LABS: ABSOLUTE IMMATURE GRANULOCYTES 0.07 x10^3/uL (0.0-0.031); BASOPHILS # 0.04 x10^3/uL (0.01-0.08); EOSINOPHIL % 3.1 % (0.8-7.0); HEMATOCRIT 36.5 % (40.1-51.0); HEMOGLOBIN 11.4 g/dL (13.7-17.5); MCHC 31.2 g/dl (32.3-36.5); MEAN CELL VOLUME 85.3 fl (79.0-92.2); MEAN PLT VOLUME 11.5 fl (9.4-12.4); MONOCYTE # 0.47 x10^3/uL (0.30-0.82); MONOCYTE % 7.3 % (5.3-12.2); PLATELET COUNT 159 x10^3/uL (163-337); RDW 16.7 % (12.2-16.6)
[2024-09-22 07:26] LABS: POTASSIUM 4.3 mmol/L (3.5-5.1)
[2024-09-22 07:27] LABS: CALCIUM 9.3 mg/dL (8.5-10.1)
[2024-09-22 07:31] LABS: CREATININE 1.7 mg/dL (0.55-1.3)
[2024-09-22] MEDS: TAMSULOSIN HCL 0.4 MG CAP PO SCH (09:34)
[2024-09-22] MEDS: AMMONIUM LACTATE 12% LOTION 225 GM BOTTLE TP SCH (09:34)
[2024-09-22] MEDS: METOPROLOL TARTRATE 25 MG TABLET (FP) PO SCH (09:35)
[2024-09-22] MEDS: PANTOPRAZOLE 40 MG TABLET PO SCH (09:35)
[2024-09-22] MEDS: ALLOPURINOL 100 MG TABLET (FP) PO SCH (09:36)
[2024-09-22] MEDS: SERTRALINE HCL 50 MG TABLET (FP) PO SCH (09:36)
[2024-09-22] MEDS: URSODIOL 300 MG CAPSULE PO SCH (09:37)
[2024-09-22] MEDS: ARIPiprazole 10 MG TABLET PO SCH (11:17)
[2024-09-22] MEDS: INSULIN ASPART SLIDING SCALE (NOVOLOG) 1 VIAL SQ SCH ×2 (14:07→17:33)
[2024-09-22] MEDS: HEPARIN NA (PORCINE) 5,000 UNITS/ML 1ML VIAL SQ SCH (14:32)
[2024-09-22] MEDS: traZODone HCL 50 MG TABLET (FP) PO SCH (21:18)
[2024-09-22] MEDS: INSULIN GLARGINE (LANTUS) 100 UNITS/ML UNITS SQ SCH (21:23)
[2024-09-23 06:51] LABS: ABSOLUTE IMMATURE GRANULOCYTES 0.05 x10^3/uL (0.0-0.031); BASOPHILS # 0.04 x10^3/uL (0.01-0.08); EOSINOPHIL % 3.8 % (0.8-7.0); EOSINOPHILS # 0.22 x10^3/uL (0.04-0.54); HEMATOCRIT 35.1 % (40.1-51.0); MCHC 31.3 g/dl (32.3-36.5); MEAN CELL VOLUME 85.4 fl (79.0-92.2); MONOCYTE # 0.49 x10^3/uL (0.30-0.82); MONOCYTE % 8.5 % (5.3-12.2); PLATELET COUNT 163 x10^3/uL (163-337); RDW 16.5 % (12.2-16.6)
[2024-09-23 07:06] LABS: POTASSIUM 4.1 mmol/L (3.5-5.1)
[2024-09-23 07:09] LABS: BLOOD UREA NITROGEN 34.9 mg/dL (7-18); MAGNESIUM 1.4 mg/dL (1.8-2.4)
[2024-09-23 07:11] LABS: CHOLESTEROL 275 mg/dL (50-200); CREATININE 1.7 mg/dL (0.55-1.3)
[2024-09-23 07:13] LABS: LDL CHOLESTEROL (ONLY SJRH) 117 mg/dL (5-100)
[2024-09-23 07:14] LABS: HDL CHOLESTEROL 34 mg/dL (40-60)
[2024-09-23] MEDS: MAGNESIUM SULFATE IN WATER 2 GM/50 ML IVPB IVPB ONE (08:28)
[2024-09-23] MEDS: ATORVASTATIN CA 40 MG TABLET (FP) PO SCH (21:55)
[2024-09-24 07:26] LABS: HEMATOCRIT 34.1 % (40.1-51.0); HEMOGLOBIN 11.1 g/dL (13.7-17.5); MCHC 32.6 g/dl (32.3-36.5); MEAN CELL VOLUME 84.8 fl (79.0-92.2); MEAN PLT VOLUME 10.4 fl (9.4-12.4); PLATELET COUNT 177 x10^3/uL (163-337); RDW 16.5 % (12.2-16.6)
[2024-09-24 07:28] LABS: POTASSIUM 4.2 mmol/L (3.5-5.1)
[2024-09-24 07:31] LABS: BLOOD UREA NITROGEN 36.1 mg/dL (7-18); CALCIUM 8.7 mg/dL (8.5-10.1); MAGNESIUM 1.7 mg/dL (1.8-2.4)
[2024-09-24 07:35] LABS: CREATININE 1.8 mg/dL (0.55-1.3); PHOSPHOROUS 3.3 mg/dL (2.5-4.9)
[2024-09-24] MEDS: FENOFIBRIC ACID 135 MG CAP PO SCH (09:11)
[2024-09-24] MEDS: ASPIRIN 81 MG CHEWABLE TABLETS PO SCH (09:11)
[2024-09-24] MEDS: MAGNESIUM SULFATE IN WATER 2 GM/50 ML IVPB IVPB ONE (12:06)
[2024-09-24] MEDS: LACTATED RINGERS SOLUTION 1,000 ML/1,000 ML INFUS.BAG IV SCH (15:09)
[2024-09-25 06:57] LABS: ABSOLUTE IMMATURE GRANULOCYTES 0.08 x10^3/uL (0.0-0.031); BASOPHILS # 0.05 x10^3/uL (0.01-0.08); EOSINOPHIL % 3.6 % (0.8-7.0); EOSINOPHILS # 0.24 x10^3/uL (0.04-0.54); HEMATOCRIT 32.5 % (40.1-51.0); HEMOGLOBIN 10.4 g/dL (13.7-17.5); MEAN CELL VOLUME 84.6 fl (79.0-92.2); MEAN PLT VOLUME 11.6 fl (9.4-12.4); MONOCYTE # 0.67 x10^3/uL (0.30-0.82); MONOCYTE % 10.2 % (5.3-12.2); PLATELET COUNT 156 x10^3/uL (163-337); RDW 16.5 % (12.2-16.6)
[2024-09-25 07:22] LABS: LDL CHOLESTEROL (ONLY SJRH) 72 mg/dL (5-100)
[2024-09-25 07:23] LABS: HDL CHOLESTEROL 32 mg/dL (40-60)
[2024-09-25 07:27] LABS: BLOOD UREA NITROGEN 30.5 mg/dL (7-18); CREATININE 1.8 mg/dL (0.55-1.3); POTASSIUM 4.4 mmol/L (3.5-5.1)
[2024-09-25 07:42] LABS: CALCIUM 8.3 mg/dL (8.5-10.1); MAGNESIUM 2.1 mg/dL (1.8-2.4)
[2024-09-25 07:45] LABS: CHOLESTEROL 238 mg/dL (50-200)
[2024-09-25] MEDS: FENOFIBRIC ACID 45 MG CAP PO SCH (09:28)
[2024-09-25] MEDS: EZETIMIBE 10 MG TABLET (FP) PO SCH (09:28)
[2024-09-25 14:47] VITALS: BP 128/79; PULSE 68; RESP 17; TEMP 98.9
== END 2024-09-25 16:45 | DRG 683 ==
LOC: JER 15:11 → JERBED 18:14 → J4S 21:56 → OBSVTOIN 09-22 10:01
PROVIDERS: ADMIT Internal Medicine; ATTEND Internal Medicine
DX: N17.9 Acute kidney failure, unspecified (principal); E87.20 Acidosis, unspecified; I50.32 Chronic diastolic (congestive) heart failure; E87.21 Acute metabolic acidosis; I13.0 Hypertensive heart and chronic kidney disease with heart failure and stage 1 through stage 4 chronic kidney disease, or unspecified chronic kidney disease; J44.9 Chronic obstructive pulmonary disease, unspecified; I25.10 Atherosclerotic heart disease of native coronary artery without angina pectoris; E11.42 Type 2 diabetes mellitus with diabetic polyneuropathy; M10.9 Gout, unspecified; F31.9 Bipolar disorder, unspecified; K76.0 Fatty (change of) liver, not elsewhere classified; E78.5 Hyperlipidemia, unspecified; E78.1 Pure hyperglyceridemia; D50.9 Iron deficiency anemia, unspecified; E11.65 Type 2 diabetes mellitus with hyperglycemia
CPT/HCPCS: 0241U-QW; 36415; 71045-TC-FY; 80048; 80053; 80061; 81003; 82010; 82803; 82962; 83036; 83605; 83735; 83880; 84100; 84439; 84443; 84484; 85025; 85027; 87086; 93005; 93010; 93306-TC; 93880-TC; 97116-GP; 97161-GP; 99285-25; G0378; J1644